=== PATIENT | male | born 1975 | race Caucasian/White ===

== ENCOUNTER → 2021-09-22 15:00 | Outpatient (BNVA) | payer OTHER, SELFPAY | PROVIDERS: PCP Internal Medicine; Referring Provider Internal Medicine; Visit Provider Nurse Practitioner Family | DX: Z12.11 Encounter for screening for malignant neoplasm of colon (principal); K21.9 Gastro-esophageal reflux disease without esophagitis; Z87.898 Personal history of other specified conditions | CPT/HCPCS: 99202 ==

== ENCOUNTER → 2021-10-27 13:51 | Outpatient (BNVA) | payer OTHER, SELFPAY | PROVIDERS: PCP Internal Medicine; Visit Provider Internal Medicine Cardiovascular Disease | DX: R06.02 Shortness of breath (principal) | CPT/HCPCS: 93005; 99202 ==

== ENCOUNTER → 2021-11-30 09:54 | Outpatient (REF) | payer OTHER, SELFPAY ==
--- NOTE | ~2021-11-30 | NM_ITS ---
Myocardial perfusion study Indication: Shortness of breath evaluate for myocardial ischemia Technique: The patient was brought in for a Lexiscan perfusion study on 11/30/2021. Patient performed low-level exercise and was injected 0.4 mg of Lexiscan intravenously. Within a minute of injection, 40 mCi of sestamibi was given intravenously. Images were obtained using the SPECT gamma camera interlaced with the gating device. Images were obtained in supine position. Resting perfusion study was performed on 12/02/2021. Patient was administered 40 mCi of sestamibi intravenously at rest. Images were then obtained in supine position. Images obtained with and without CT attenuation. Total DLP 162 mGy-cm. Images were processed with the software and compared side to side in short axis, horizontal long axis and vertical long axis views. Findings: The stress perfusion study showed non attenuated images show mildly reduced uptake in the basal and mid inferior wall of the LV myocardium. Remainder of the LV myocardium is normally perfused. Attenuation corrected images show normal uptake of radiotracer in all segments of LV myocardium. The gated study shows normal LV systolic function with calculated LVEF of 66%. LV cavity is normal in size. The gated study shows normal systolic wall thickening and contraction of segments. Resting study shows no change in perfusion pattern compared to stress perfusion study. Gating at rest reveals normal systolic wall motion with ejection fraction at 58%. The findings are consistent with normal myocardial perfusion. NM/NM kandice perf SPECT rest & str Impression: 1. Myocardial perfusion imaging study shows normal myocardial perfusion 2. Gated LVEF is 66% 3. Transient ischemic dilatation not present EKG nondiagnostic for ischemia
--- NOTE | 2021-11-30 09:59 | CA_ITS ---
Acquisition Time: 2021-11-30 10:10:24 Total Exercise Time: 00:06:10 Test Indications: SOB, PREOP Medications: SEE CHART Protocol: SHILA Max HR: 155 BPM 89% of Pred: 174 BPM Max BP: 164/068 mmHG Max Work Load: 7.2 METS Exercise stress test with exercise 6 min 10 sec of Shila protocol, with moderate shortness of breath, no chest discomfort, with ectopic atrial beats and isolated PVCs, with normotensive response to exercise, with baseline EKG showing T wave inversion lead III, then with exercise there is T wave inversions lead III, aVF, and slightly in V4-V6, suggestive of possible ischemia. In recovery his sob resolved quickly. Nuclear images pending. Test reviewed with Dr Ly Referred By: Leonardo Ly Overread By: EMMA DICKEY
== END ==
LOC: HO.CARD 09:54
PROVIDERS: PCP Internal Medicine; Visit Provider Internal Medicine Cardiovascular Disease
DX: I10 Essential (primary) hypertension (principal); R06.02 Shortness of breath
CPT/HCPCS: 78452; 93017; A9500; J0280; J2785

== ENCOUNTER 2021-12-01 14:55 | Outpatient (REF) | payer OTHER, SELFPAY | END 2021-12-01 14:56 | disposition home or self-care (01) | LOC: HO.LNP 14:55 | PROVIDERS: Visit Provider Surgery | DX: L02.91 Cutaneous abscess, unspecified (principal); L08.9 Local infection of the skin and subcutaneous tissue, unspecified; L72.3 Sebaceous cyst; E11.65 Type 2 diabetes mellitus with hyperglycemia; E66.01 Morbid (severe) obesity due to excess calories | CPT/HCPCS: 10060; 87071; 87205; 99202 ==

== ENCOUNTER 2021-12-01 16:36 | Outpatient (REF) | payer OTHER, SELFPAY ==
[2021-12-01 16:56] LABS: MANUAL DIFF FLAG NO
[2021-12-01 17:20] LABS: Appearance Urine CLEAR; Color Urine YELLOW; Glucose Urine UA NEG (NEG); Leukocyte Esterase Urine NEG (NEG); Nitrite Urine NEG (NEG); PH 5.5 (5.0-8.0); Specific Gravity - Urine >= 1.030 (1.005-1.025); Urine Blood NEG (NEG); Urine Ketones NEG (NEG); Urine Protein NEG (NEG-TRACE)
[2021-12-01 17:21] LABS: Basophils Absolute Auto 0.1 X10*3/uL (0.0-0.2); Eosinophils Absolute Auto 0.2 X10*3/uL (0.0-0.4); Eosinophils Percent Auto 2.3 % (0-4); Hematocrit 46.6 % (42.0-52.0); Hemoglobin 15.5 g/dl (14.0-18.0); Imm Gran Abs Auto 0.11 X10*3/uL (0.00-0.03); Imm Gran Pct Auto 1.3 % (0.0-0.4); Lymphocytes Absolute Auto 2.4 X10*3/uL (1.2-4.9); Lymphocytes Percent Auto 26.8 % (20-40); Mean Corpuscular HGB Conc 33.3 g/dl (31.0-36.0); Mean Corpuscular Hemoglobin 28.1 pg (27.0-33.0); Mean Corpuscular Volume 84.6 fL (80.0-98.0); Mean Platelet Volume 10.5 fL (9.4-12.4); Monocytes Absolute Auto 0.6 X10*3/uL (0.1-1.2); Monocytes Percent Auto 6.4 % (2-11); Neutrophils Absolute Auto 5.5 x10*3/uL (2.0-8.3); Neutrophils Percent Auto 62.2 % (45-73); Platelet Count 249 X10*3/uL (160-400); Red Blood Count 5.51 X10*6/uL (4.60-5.80); Red Cell Distribution Width 12.8 % (11.0-16.0); White Blood Count 8.8 X10*3/uL (4.8-10.8)
[2021-12-01 17:30] LABS: Bacteria Urine 1+ /LPF; Squamous Epithelial Cell Urine 1+ /LPF
[2021-12-01 18:02] LABS: Alanine Aminotransferase 41 U/L (0-40); Albumin Level 4.3 g/dL (3.5-5.0); Alkaline Phosphatase 73 U/L (39-117); Anion Gap 17 (12-20); Aspartate Amino Transferase 24 U/L (5-37); Bilirubin Total 1.2 mg/dL (0.0-1.0); Blood Urea Nitrogen 15 mg/dL (9-16); Calcium 10.1 mg/dL (8.4-10.2); Carbon Dioxide 24 mmol/L (22-29); Chloride 100 mmol/L (96-108); Cholesterol 206 mg/dL; Estimated Glomerular Filt Rate > 60; Glucose Random 142 mg/dL (60-115); HDL Cholesterol 50 mg/dL; LDL Cholesterol Calculated 118 mg/dl; Potassium 4.8 mmol/L (3.3-5.1); Sodium 136 mmol/L (135-145); Total Protein 7.3 g/dL (6.5-8.0); Triglycerides 191 mg/dL
[2021-12-01 18:25] LABS: Free T4 (Free Thyroxine) 1.06 ng/dL (0.71-1.85); Thyroid Stimulating Hormone 5.09 uIU/mL (0.32-4.0)
[2021-12-01 18:35] LABS: Folate 19.4 ng/mL (> or = 4.0); Vitamin B12 861 pg/mL (200-900)
[2021-12-02 05:14] LABS: Estimated Average Glucose 203 mg/dL; Hemoglobin A1c % 8.7 %
[2021-12-08 13:31] LABS: Testosterone, Free 63.7 pg/mL (35.0-155.0); Testosterone, Total 230 ng/dL (250-1100)
== END 2021-12-01 16:37 | disposition home or self-care (01) ==
LOC: HO.LAB 16:36
PROVIDERS: PCP Internal Medicine; Visit Provider Internal Medicine
DX: Z01.818 Encounter for other preprocedural examination (principal); K21.9 Gastro-esophageal reflux disease without esophagitis; E66.01 Morbid (severe) obesity due to excess calories; E11.65 Type 2 diabetes mellitus with hyperglycemia; E29.1 Testicular hypofunction
CPT/HCPCS: 36415; 80053; 80061; 81001; 82607; 82746; 83036; 84402; 84403; 84439; 84443; 85025; 99212

== ENCOUNTER → 2021-12-22 14:54 | Outpatient (REF) | payer OTHER, SELFPAY ==
--- NOTE | 2021-12-22 14:57 | CA_ITS ---
Transthoracic Echocardiogram Patient (Last, First, Middle): Jaspreet Chacko, Gender: Male Date of : 1975 Age: 46 Procedure Date: 12/22/2021 Procedure Type: Transthoracic Echocardiogram Location: OP Height: 180.34 cm Weight: 145.15 kg BSA: 2.58 m2 Heart Rate: bpm BP: 145 / 84 mmHg Paralegal Supervisor: LINDA Referring MD: Leonardo Ly MD Symptoms: R06.02 - Shortness of breath, I10 HTN Study Quality: Fair, Good with definity ECG Rhythm: Sinus Conclusions: - The left ventricular systolic function is normal. The calculated ejection fraction is 61% by biplane method. - No obvious valvular pathology seen on this study. Findings Left Ventricle Normal left ventricular cavity size. There is mildly increased left ventricular wall thickness. The left ventricular systolic function is normal. The calculated ejection fraction is 61% by biplane method. There is no evidence of regional wall motion abnormalities. Diastolic function is normal for age. Right Ventricle Normal right ventricular cavity size and systolic function. Atria Both atria are normal in size. Aortic Valve The aortic valve was not well visualized. There is no aortic valve stenosis. There is no aortic valve regurgitation. Mitral Valve The mitral valve appears normal. There is no mitral valve regurgitation. There is no mitral valve stenosis. Pulmonic Valve The pulmonic valve is likely normal. Tricuspid Valve Normal tricuspid valve structure. There is trace tricuspid valve regurgitation. There is no evidence of pulmonary hypertension. Great Vessels The asc aorta is normal in size. Venous The inferior vena cava is normal in size and collapses greater than 50% with inspiration. Pericardium/Pleural There is no evidence of pericardial effusion. Prior Study Comparison No prior study available for comparison. Recommendations, Care & Conclusions No obvious valvular pathology seen on this study. Measurements 2D Linear Measurements IVSd: 1.23 0.6-0.9/0.6-1.0 cm LVIDd: 4.24 3.9-5.3/4.2-5.9 cm LVIDd Index: 1.64 2.4-3.2/2.2-3.1 cm/m2 LVIDs: 2.74 2.0-3.6 cm LVPWd: 1.28 0.7-1.1 cm Ao Root: 2.90 2.1-3.5 cm LA Diam: 3.40 2.7-3.8/3.0-4.0 cm LAIDs Index: 1.32 1.5-2.3 cm/m2 LV Mass: 240.57 67-162/88-224 g LV Mass Index: 93.25 43-95/49-115 g/m2 LVOT Diam: 2.20 3.0+(-)1.3 cm 2D Systolic Function EF 4C: 66.50 >55% EF 2C: 53.80 >55% EF BiP: 60.50 >55% Mitral Valve MV Pk E: 0.63 MV PK A: 0.71 MV Decel Time: 116.00 E/A: 0.90 E'Lateral: 14.00 E'Medial: 7.83 E/E' Med: 8.00 E/E' Lat: 4.50 PHT: 34.00 MVA PHT: 6.47 Decel [place]: 5.40 Aortic Valve AoV Pk Ceferino: 1.54 AoV Mn Ceferino: 1.09 AoV VTI: 0.32 AoV Pk Grad: 9.00 Aov Mn Grad: 5.00 SANJAY Cont.VTI: 2.44 LVOT LVOT Pk Ceferino: 0.99 LVOT Mn Ceferino: 0.67 LVOT VTI: 0.20 LVOT Pk Grad: 4.00 LVOT Mn Grad: 2.00 LVOT Diam: 2.20 LVOT Area: 3.80 Diastolic Function MV Pk E: 0.63 MV Pk A: 0.71 E/A: 0.90 E'Medial: 7.83 E/E' Med: 8.00 E' Laterial: 14.00 E/E' Lat: 4.50 Right Ventricle TAPSE (mm): 24.00 TVS' Ceferino: 13.00 Tricuspid Valve TR Pk Ecferino: 1.83 TR Pk Grad: 13.00 RA Press: 3.00 RVSP: 16.00 Great Vessels Aorta Ao Root-2D: 2.90 2.0-3.7 cm Pulmonary Valve PV Pk Ceferino: 1.40 Peak PV Grad: 8.00 Updated in Other Vendor System with Status of Final Jose Cruz Harris MD electronically signed on 12/23/2021 11:35:04 AM with status of Final
== END ==
LOC: HO.CARD 14:54
PROVIDERS: Visit Provider Internal Medicine Cardiovascular Disease
DX: R06.02 Shortness of breath (principal); I10 Essential (primary) hypertension
CPT/HCPCS: 93306; Q9957

== ENCOUNTER 2022-01-11 16:00 | Outpatient (REF) | payer OTHER, SELFPAY ==
--- NOTE | 2022-01-11 17:32 | PFT_ITS ---
Forced vital capacity 69%, FEV1 66%, FEV1/FVC 75, [id number] is 55%, and MVV 54%. Post bronchodilator therapy, there is a significant improvement in [id number]. Total lung capacity 90%. Residual volume 140%. Diffusion capacity 104% CONCLUSION: Moderate degree of obstructive airway disorder. There is some improvement after bronchodilator therapy, suggesting mild bronchial asthma. Clinical correlation is recommended. MD SCOTT Villa/CHANDU / [id number]
== END 2022-01-11 16:01 | disposition home or self-care (01) ==
LOC: HO.RESP 16:00
PROVIDERS: PCP Internal Medicine; Visit Provider Internal Medicine
DX: J45.909 Unspecified asthma, uncomplicated (principal)
CPT/HCPCS: 94060; 94727; 94729

== ENCOUNTER → 2022-01-12 14:26 | Outpatient (BNVA) | payer OTHER, SELFPAY | PROVIDERS: PCP Internal Medicine; Referring Provider Internal Medicine; Visit Provider Nurse Practitioner Family | DX: R06.02 Shortness of breath (principal); R07.89 Other chest pain; E66.01 Morbid (severe) obesity due to excess calories; Z68.42 Body mass index [BMI] 45.0-49.9, adult | CPT/HCPCS: 99212 ==

== ENCOUNTER 2022-02-02 16:27 | Outpatient (REF) | payer OTHER, SELFPAY ==
--- NOTE | ~2022-02-02 | XR_ITS ---
EXAMINATION: CHEST AND RIGHT RIBS. CLINICAL INFORMATION: Fall. COMPARISON: None TECHNIQUE: Chest 2 views. Right RIBS 4 views. FINDINGS: CHEST: The lungs are well-expanded and clear of acute process. The heart size and pulmonary vascularity is normal. Visualized thoracic cage appears unremarkable. Mild spondylosis seen throughout thoracic spine. RIGHT RIBS: Multiple views of right ribs reveal no visible rib fracture or bony abnormality. The soft tissues are normal. XR/XR chest 2V IMPRESSION: Unremarkable chest exam. No visible right rib fracture seen. No lytic process.
--- NOTE | ~2022-02-02 | XR_ITS ---
EXAMINATION: CHEST AND RIGHT RIBS. CLINICAL INFORMATION: Fall. COMPARISON: None TECHNIQUE: Chest 2 views. Right RIBS 4 views. FINDINGS: CHEST: The lungs are well-expanded and clear of acute process. The heart size and pulmonary vascularity is normal. Visualized thoracic cage appears unremarkable. Mild spondylosis seen throughout thoracic spine. RIGHT RIBS: Multiple views of right ribs reveal no visible rib fracture or bony abnormality. The soft tissues are normal. XR/XR ribs RT 2V IMPRESSION: Unremarkable chest exam. No visible right rib fracture seen. No lytic process.
== END 2022-02-02 16:28 | disposition home or self-care (01) ==
LOC: HO.XRAY 16:27
PROVIDERS: PCP Internal Medicine; Visit Provider Internal Medicine
DX: R07.81 Pleurodynia (principal); W19.XXXA Unspecified fall, initial encounter
CPT/HCPCS: 71046; 71100

== ENCOUNTER 2022-03-23 15:27 | Outpatient (REF) | payer OTHER, SELFPAY ==
--- NOTE | ~2022-03-23 | US_ITS ---
EXAMINATION: US ABDOMEN COMPLETE CLINICAL INFORMATION: Abnormal liver function tests. COMPARISON: None TECHNIQUE: Real-time imaging of the abdominal viscera. FINDINGS: PANCREAS: Not well visualized due to bowel gas ABDOMINAL AORTA: Not well visualized due to bowel gas INFERIOR VENA CAVA: Not well visualized due to bowel gas LIVER: Liver echotexture is increased. The liver is enlarged, right lobe measuring 21 cm. Liver contour is normal.. No focal hepatic lesion. There is no intrahepatic biliary duct dilatation seen. GALLBLADDER: Small gallstones in the gallbladder. The gallbladder is normal in size. The gallbladder wall is normal.. COMMON BILE DUCT: Normal in caliber measuring 0.4 cm in diameter. RIGHT KIDNEY: 4 cm cyst in the lower pole with single septation, Bosniak type II No hydronephrosis. No renal calculi or focal parenchymal lesions. The kidney measures 13 cm in maximum dimension. LEFT KIDNEY: Normal. No hydronephrosis. No renal calculi or focal parenchymal lesions. The kidney measures 12.8 cm in maximum dimension. SPLEEN: Slightly enlarged. The spleen measures 14 cm in maximum dimension. FREE FLUID: None. US/US abdomen complete IMPRESSION: Enlarged echogenic liver suggestive of fatty infiltration. Slightly enlarged spleen. Gallstones. Right renal cyst. Limited visualization of the pancreas, aorta and IVC.
== END 2022-03-23 15:28 | disposition home or self-care (01) ==
LOC: HO.US 15:27
PROVIDERS: Visit Provider Internal Medicine
DX: R79.89 Other specified abnormal findings of blood chemistry (principal)
CPT/HCPCS: 76700

== ENCOUNTER 2022-04-13 07:32 | Day surgery (SDC) | payer OTHER, SELFPAY ==
[2022-04-07 14:07] VITALS: BMI 46.4
--- NOTE | 2022-04-12 10:17 | HO.ANESPROP2 ---
Documented by User: Petra Sheridan NP 04/12/22 10:18 HPI - Anesthesia Eval Consult details Narrative: 46yo M for Upper Endoscopy and Colonoscopy COUNT INCLUDES THE [facility] Active Problems Active Problems: All Active Problems (Updated 04/07/22 @ 13:40 by Breanna Tidwell, TUNG) Type 2 diabetes mellitus with hyperglycemia (Acute) COVID-19 virus infection (Acute) Colon cancer screening (Acute) Cholelithiasis (Acute) Left renal stone (Acute) Annual physical exam (Acute) Periumbilical hernia (Acute) Morbid (severe) obesity due to excess calories (Acute) TSH elevation (Acute) LFTs abnormal (Acute) Fall (Acute) Chest pain (Acute) Back pain (Acute) Generalized anxiety disorder (Acute) Fatty liver (Acute) Cholelithiasis (Acute) Hypogonadism in male (Acute) Obesity (Acute) Hypertension (Acute) GERD (gastroesophageal reflux disease) (Acute) Asthma (Acute) Past Medical History Medical History (Updated 04/07/22 @ 13:40 by Breanna Tidwell RN) Abscess Asthma Chest wall pain GERD (gastroesophageal reflux disease) Hypertension Hypogonadism in male Obesity Poorly controlled type 2 diabetes mellitus Shortness of breath on exertion Umbilical hernia Family History Family History Father Heart attack Mother No problems noted. Sister No problems noted. Daughter No problems noted. Maternal Grandmother Ovarian cancer Paternal Grandfather Heart attack Paternal Uncle Alcohol abuse Surgical History Surgical History History of appendectomy Hx of LASIK Laryngeal polyp Social History Social History Housing: House Alcohol intake: former Year quit: 2013 Patient Tobacco Use Status: Former Tobacco user Quit Date: 2017 Tobacco use type: Cigarette Years Smoked: 25+/- 2016 e-Cigarette/Vaping Use: Never Used Second Hand Smoke Exposure: No Use of substances other than those prescribed or required for medical reasons: Yes Are you DNR?: No Advance Directives: No Advance Directives Information Provided: Yes service: No Current occupational status: employed Cognitive needs: No Hearing needs: No Vision needs: Yes Meds Allergies Allergy/AdvReac Type Severity Reaction Status Date / Time Iodinated Contrast Media Allergy Mild Abdominal Verified 03/09/22 13:29 Pain Penicillins Allergy Mild Hives Verified 03/09/22 13:29 Home Medications Medication Instructions Recorded Confirmed Last Taken Type azelastine 137 mcg (0.1 %) nasal 2 spray intranasal BID 07/15/21 04/07/22 Unknown History spray aerosol biotin 5 mg capsule 5 mg PO DAILY 07/15/21 04/07/22 Unknown History buspirone 10 mg tablet 40 mg PO DAILY 07/15/21 04/07/22 Unknown History milk thistle 150 mg capsule 150 mg PO BID 07/15/21 04/07/22 Unknown History pioglitazone 30 mg tablet 30 mg PO DAILY 07/15/21 04/07/22 Unknown History diazepam 5 mg tablet 5 mg PO DAILY PRN Anxiety 03/09/22 04/07/22 Unknown History Exam Exam Date and Time: April 12, 2022 1017 Height,Weight and Vital Signs: Height 5 ft 11 in Weight 151.046 kg Pertinent Lab Results Pertinent Lab Results: Laboratory Tests 12/01/21 12/01/21 16:54 16:54 WBC 8.8 Hgb 15.5 Hct 46.6 Plt Count 249 Sodium 136 Potassium 4.8 Chloride 100 Carbon Dioxide 24 BUN 15 Creatinine 0.78 Assessment and Plan Assessment Anesthesia Assessment: Chart Reviewed Documented by User: Josef Funk MD 04/13/22 08:19 COUNT INCLUDES THE [facility] Past Medical History Medical History (Updated 04/07/22 @ 13:40 by Breanna Tidwell RN) Abscess Asthma Chest wall pain GERD (gastroesophageal reflux disease) Hypertension Hypogonadism in male Obesity Poorly controlled type 2 diabetes mellitus Shortness of breath on exertion Umbilical hernia Family History Family History Father Heart attack Mother No problems noted. Sister No problems noted. Daughter No problems noted. Maternal Grandmother Ovarian cancer Paternal Grandfather Heart attack Paternal Uncle Alcohol abuse Family history of problems with anesthesia: No Surgical History Surgical History History of appendectomy Hx of LASIK Laryngeal polyp History of Problems with Anesthesia: No Social History Social History Housing: House Alcohol intake: former Year quit: 2013 Patient Tobacco Use Status: Former Tobacco user Quit Date: 2017 Tobacco use type: Cigarette Years Smoked: 25+/- 2016 e-Cigarette/Vaping Use: Never Used Second Hand Smoke Exposure: No Use of substances other than those prescribed or required for medical reasons: Yes Are you DNR?: No Advance Directives: No Advance Directives Information Provided: Yes service: No Current occupational status: employed Cognitive needs: No Hearing needs: No Vision needs: Yes Meds Allergies Allergy/AdvReac Type Severity Reaction Status Date / Time Iodinated Contrast Media Allergy Mild Abdominal Verified 03/09/22 13:29 Pain Penicillins Allergy Mild Hives Verified 03/09/22 13:29 Home Medications Medication Instructions Recorded Confirmed Last Taken Type azelastine 137 mcg (0.1 %) nasal 2 spray intranasal BID 07/15/21 04/07/22 Unknown History spray aerosol biotin 5 mg capsule 5 mg PO DAILY 07/15/21 04/07/22 Unknown History buspirone 10 mg tablet 40 mg PO DAILY 07/15/21 04/07/22 Unknown History milk thistle 150 mg capsule 150 mg PO BID 07/15/21 04/07/22 Unknown History pioglitazone 30 mg tablet 30 mg PO DAILY 07/15/21 04/07/22 Unknown History diazepam 5 mg tablet 5 mg PO DAILY PRN Anxiety 03/09/22 04/07/22 Unknown History Exam Airway Mallampati Class: IV TM Dist: >3cm Neck ROM: Full Heart: rrr Lungs: clear Assessment and Plan Final Anesthetic Review Family History of Problems with Anesthesia: No History of Problems with Anesthesia: No NPO: Yes ASA Class: III Final Preanesthetic Review: No Changes in Pt Med Stat, Meds/Allgs Chart Reviewed, Consent Obtained/Reviewed and Anes Risks/Benef Reviewed Patient Risk: Intermediate Procedure Risk: Low Anesthetic Plan Anesthetic Plan: MAC: Disposition: Standard PACU
--- NOTE | 2022-04-13 07:26 | MHC.SHP ---
Pre-Procedural Eval Section A Date of Service: 04/13/22 Section B Chief Complaint: reflux disease,screening Relevant Family History (Specify if Yes): No Relevant Social History: Other (specify) Present Medications: see Short Stay Collaborative assessment Medical History: Significant History (Abscess Asthma Chest wall pain GERD (gastroesophageal reflux disease) Hypertension Hypogonadism in male Obesity Poorly controlled type 2 diabetes mellitus Shortness of breath on exertion Umbilical hernia) History of Previous Operations: Relevant previous surgery/procedure and date(s) (History of appendectomy Hx of LASIK Laryngeal polyp) Allergies: Allergies Allergy/AdvReac Type Severity Reaction Status Date / Time Iodinated Contrast Media Allergy Mild Abdominal Verified 03/09/22 13:29 Pain Penicillins Allergy Mild Hives Verified 03/09/22 13:29 Review of Systems Sugical H&P ROS: Negative: Constitution, Cardiovascular, Respiratory, Neurological, Psychiatric, Hem-Onc, Allergic/Immunologic, Gastrointestinal, Genitourinary, Musculoskeletal, Integumentary, Endocrine and Eyes/Ears/Nose/Throat Exam Surgical H&P Exam: Normal: HEENT, Normal: Heart, Normal: Lungs, Normal: Extremities, Normal: Abdomen, Normal: Skin and Normal: Neurological Plan Diagnosis/Plan: Unchanged I have reviewed the history and physical and performed a pertinent physical examination on my patient. No changes have occurred unless specified. Time Spent With Patient Time: Total time managing care of this patient today ____ minutes.
[2022-04-13 07:48] VITALS: BP 146/87; PULSE 80; RESP 18; TEMP 36.9; O2SAT 95; BMI 46.0
[2022-04-13] MEDS: Lactated Ringers 1,000 ML 100 ML IVCONT (08:15)
[2022-04-13 08:23] LABS: Glucose, Whole Blood 168 mg/dL (60-115)
--- NOTE | 2022-04-13 09:07 | P.OP_ITS ---
Operative Note Operative Note Date of Service: 04/13/22 Narrative: Operative Information Procedure Description: EGD, Colonoscopy Indication: reflux, screening colon Anesthesia: MAC FLEXIBLE TRANSORAL UPPER GASTROINTESTINAL ENDOSCOPY AND COLONOSCOPY PROCEDURE NOTE UPPER ENDOSCOPY Consent: Indications for the procedure and potential complications of bleeding, perforation, reaction to medications and missed diagnosis were discussed with the patient and informed consent was obtained. Instrument: Olympus GIF H 190 J mid size upper endoscope Monitoring: Vital signs and clinical assessment, continuous EKG monitoring, Pulse oximetry, Carbon Dioxide monitoring and blood pressure monitoring were done throughout the procedure. Procedure: The patient was placed in the left lateral decubitis position and pre-procedure medications were administered and a bite block was placed. The endoscope was inserted into the mouth and advanced under direct vision to the third part of duodenum. A careful inspection was made as the upper endoscope was withdrawn including a retroflexed examination of the proximal stomach; Findings and interventions are described below. Findings: Larynx:normal Esophagus: GE junction at 43 cm, diaphragm hiatus at 45 cm, consistent with 2 cm sliding hiatal hernia, Esophagitis noted with mild erosion, bx taken from GEJ and distal esophagus in separate jars. The LES was very lax. Stomach: erythematous mucosa with scarring in distal stomach. Biopsies were obtained. Grade 3 flap valve on retroflexed examination of the cardia. Duodenum: Normal bulb and descending duodenum, Intervention: Biopsies as noted above COLONOSCOPY Instrument: Olympus variable stiffness ADULT scope 190L Colonoscopy Monitoring: Vital signs and clinical assessment, continuous EKG monitoring, Pulse oximetry, Carbon Dioxide monitoring and blood pressure monitoring were done throughout the procedure. Colon withdrawal time was 12 minutes. Procedure: The patient was placed in the left lateral decubitis position and pre-procedure medications were administered. After a digital rectal examination of the ano-rectum, the video colonoscope was inserted into the rectum and advanced through the colon to the cecum/TI. The colonoscope was slowly withdrawn in a retrograde panoramic fashion and the colon mucosa was carefully examined including a retroflexed view of the rectum. Findings and interventions are described below. Procedure Difficulty: Findings: Terminal Ileum-normal Cecum:normal Ascending Colon: few small diverticula seen Transverse Colon - x1 sessile polyp 10 mm removed with cold snare Descending Colon: x1 sessile polyp 5-7 mm removed with cold forceps Sigmoid Colon: x2 sessile polyps 10 mm removed with cold snare, one was not retrieved. Rectum: Retroflexion with small internal hemorrhoids, grade I, 5-8 mm sessile polyp removed with cold forceps Anorectum - normal Colon preparation: [place] Bowel Preparation Scale Right colon; 2 Transverse colon: 2 Left colon; 2 (0 = Unprepared colon segment with mucosa not seen due to solid stool that cannot be cleared. 1 = Portion of mucosa of the colon segment seen, but other areas of the colon segment not well seen due to staining, residual stool and/or opaque liquid. 2 = Minor amount of residual staining, small fragments of stool and/or opaque liquid, but mucosa of colon segment seen well. 3 = Entire mucosa of colon segment seen well with no residual staining, small fragments of stool or opaque liquid) Impression and Post Procedure Diagnosis: Endoscopy Findings: hiatal hernia gastritis erosive esophagitis lax LES Colonoscopy Findings: polyps internal hemorrhoids diverticular disease Plan: Await Pathology results Repeat Colonoscopy in 3-4 years due to polyps or earlier if clinically indicated High fiber diet leaflet avoid straining at stool, epsom salts and sitz bath, anusol supps or cream reflux precautions, PPI compliance if taking, if not taking then would probably benefit lifestyle modifications and weight loss Above findings were reviewed with the patient and relevant handouts were provided if indicated.
[2022-04-13 09:15] VITALS: BP 103/79; PULSE 91; RESP 18; TEMP 36.9; O2SAT 95
[2022-04-13 09:36] VITALS: BP 145/95; PULSE 81; RESP 18; TEMP 36.9; O2SAT 96
== END 2022-04-13 10:17 | disposition home or self-care (01) ==
PROVIDERS: PCP Internal Medicine; Visit Provider Internal Medicine Gastroenterology
PROC: (CPT 45385; principal; 2022-04-13 08:30)
DX: Z12.11 Encounter for screening for malignant neoplasm of colon (principal); D12.3 Benign neoplasm of transverse colon; D12.4 Benign neoplasm of descending colon; D12.7 Benign neoplasm of rectosigmoid junction; K57.30 Diverticulosis of large intestine without perforation or abscess without bleeding; K64.0 First degree hemorrhoids; K62.89 Other specified diseases of anus and rectum; K58.9 Irritable bowel syndrome, unspecified; K29.50 Unspecified chronic gastritis without bleeding; K21.9 Gastro-esophageal reflux disease without esophagitis; K20.80 Other esophagitis without bleeding; K44.9 Diaphragmatic hernia without obstruction or gangrene; I10 Essential (primary) hypertension; J45.909 Unspecified asthma, uncomplicated; E66.01 Morbid (severe) obesity due to excess calories; Z68.41 Body mass index [BMI] 40.0-44.9, adult; E29.1 Testicular hypofunction; E11.65 Type 2 diabetes mellitus with hyperglycemia; Z79.84 Long term (current) use of oral hypoglycemic drugs; Z79.51 Long term (current) use of inhaled steroids; Z79.899 Other long term (current) drug therapy; Z88.0 Allergy status to penicillin; Z91.041 Radiographic dye allergy status; Z87.891 Personal history of nicotine dependence
CPT/HCPCS: 45385; 45380; 43239; 82947; 88305; 88342

== ENCOUNTER → 2022-04-27 15:58 | Outpatient (BNVA) | payer OTHER, SELFPAY | PROVIDERS: PCP Internal Medicine; Visit Provider Nurse Practitioner Family | DX: K80.20 Calculus of gallbladder without cholecystitis without obstruction (principal); K76.0 Fatty (change of) liver, not elsewhere classified; K21.00 Gastro-esophageal reflux disease with esophagitis, without bleeding; K59.04 Chronic idiopathic constipation; K29.50 Unspecified chronic gastritis without bleeding; K20.90 Esophagitis, unspecified without bleeding; R79.89 Other specified abnormal findings of blood chemistry | CPT/HCPCS: 99212 ==

== ENCOUNTER → 2022-07-20 15:22 | Outpatient (BNVA) | payer OTHER, SELFPAY | PROVIDERS: PCP Internal Medicine; Visit Provider Urology | DX: K21.00 Gastro-esophageal reflux disease with esophagitis, without bleeding (principal); K76.0 Fatty (change of) liver, not elsewhere classified; K59.01 Slow transit constipation; K58.1 Irritable bowel syndrome with constipation; E29.1 Testicular hypofunction; E11.69 Type 2 diabetes mellitus with other specified complication; N52.1 Erectile dysfunction due to diseases classified elsewhere | CPT/HCPCS: 51798; 99202; 99212 ==

== ENCOUNTER 2022-10-05 14:26 | Outpatient (REF) | payer OTHER, SELFPAY ==
[2022-10-12 17:44] LABS: Testosterone, Free 38.4 pg/mL (35.0-155.0); Testosterone, Total 127 ng/dL (250-1100)
== END 2022-10-05 14:27 | disposition home or self-care (01) ==
LOC: HO.LAB 14:26
PROVIDERS: PCP Internal Medicine; Visit Provider Urology
DX: E11.65 Type 2 diabetes mellitus with hyperglycemia (principal); N52.1 Erectile dysfunction due to diseases classified elsewhere
CPT/HCPCS: 36415; 84402; 84403

== ENCOUNTER → 2022-10-19 15:52 | Outpatient (BNVA) | payer OTHER, SELFPAY | PROVIDERS: PCP Internal Medicine; Visit Provider Urology ==

== ENCOUNTER → 2022-10-26 15:44 | Outpatient (BNVA) | payer OTHER, SELFPAY | PROVIDERS: PCP Internal Medicine; Visit Provider Urology | DX: E29.1 Testicular hypofunction (principal) | CPT/HCPCS: 96372 ==

== ENCOUNTER 2023-01-18 15:18 | Outpatient (AMB) | payer OTHER, SELFPAY ==
--- NOTE | 2023-01-18 15:25 | A.OFFVIS_ITS ---
Intake Intake Visit Reasons: 3M PSA/CBC/Testosterone(set) Intake Note: Patient is present for Follow Up Labs Urology Med: Tadalafil, Testosterone, Antibiotic Allergy: Penicillins Blood Thinner: None [facility] Allergies Iodinated Contrast Media Allergy (Mild, Verified 02/08/23 15:42) Abdominal Pain Penicillins Allergy (Mild, Verified 02/08/23 15:42) Hives Medication List - Last Reconciled 01/18/23 by Sandip Becker MD albuterol sulfate 90 mcg/actuation (Ventolin HFA) 2 puffs PO Q6H PRN azelastine 2 sprays intranasal BID buspirone 40 mg PO DAILY diazepam 5 mg PO DAILY PRN docusate sodium 100 mg PO BEDTIME empagliflozin (Jardiance) 10 mg PO DAILY glipizide 10 mg PO BID 90 days lisinopril 10 mg PO DAILY metformin 500 mg PO TIDWMEAL 90 days milk thistle 150 mg PO BID needle (disp) 18 G (BD Regular Bevel [place]) To draw up medication needle (disp) 22 G (BD Regular Bevel [place]) To inject Testosterone pantoprazole 40 mg PO DAILY polyethylene glycol 3350 (Miralax) 17 grams PO DAILY sennosides (Natural Senna Laxative) 17.2 mg (2 x 8.6 mg) PO BEDTIME syringe (disposable) (BD Luer-Savi Syringe) Testosterone injection weekly tadalafil 10 mg PO DAILY 90 days testosterone 1 tube transdermal QAM testosterone cypionate (Depo-Testosterone) 80 mg (0.4 mL) subcut QWEEK 4 weeks HPI HPI Comments History of Present Illness Details Jaspreet is a pleasant male. He is a patient of Dr. Lunsford. He is seen for the following urologic conditions - erectile dysfunction with type 2 diabe parker - lower urinary tract symptoms - hypogonadism High-dose daily tadalafil with on demand appears to be effective 10 mg daily, up to 40 on demand Retry injectable therapy Lab work reasonable Injection Day: Lab Day: Mon Testosterone 80mg weekly Hypogonadism Intermittent treatment for many years Insurance issues related to topical therapy Prescription for injectable provided Erectile dysfunction with type 2 diabetes Progressive Able to obtain but cannot maintain erection Comorbid diagnoses include diabetes Therapy - daily tadalaifl Investigations - 12/20 T 230 F 65, 10/21 T 127 Free 38, 01/21 T 242 H 52.8 Lower urinary tract symptoms Mild nocturia Mild urgency frequency PFSH Medical History Esophagitis Gastritis Asthma Back pain Chest pain Fall Chest wall pain Shortness of breath on exertion LFTs abnormal TSH elevation Poorly controlled type 2 diabetes mellitus Abscess Cholelithiasis Colon cancer screening Umbilical hernia Hypogonadism in male Obesity Hypertension GERD (gastroesophageal reflux disease) Surgical History History of esophagogastroduodenoscopy (EGD) Hx of colonoscopy Laryngeal polyp Hx of LASIK History of appendectomy Family History Father Heart attack Mother No problems noted. Sister No problems noted. Daughter No problems noted. Maternal Grandmother Ovarian cancer Paternal Grandfather Heart attack Paternal Uncle Alcohol abuse Social History Housing: House Alcohol intake: former Year quit: 2013 Patient Tobacco Use Status: Former Tobacco user Quit Date: 2017 Tobacco use type: Cigarette Years Smoked: +/- 2016 e-Cigarette/Vaping Use: Never Used Second Hand Smoke Exposure: No service: No Current occupational status: employed Cognitive needs: No Hearing needs: No Vision needs: Yes Review of Systems Const Denies chills and Denies fever(s) Card Reports no additional complaints and Denies syncope Resp Denies cough GI Denies abdominal pain and Denies heartburn Reports as per HPI and Denies change in libido Neuro Denies syncope Psych Denies change in libido Endo Denies change in libido Physical Exam Const General: cooperative, healthy appearing, comfortable and no acute distress Orientation/consciousness: patient oriented x3 HEENT Face and sinus: Yes normal facial exam Mouth: moist mucous membranes Neck Neck: Yes normal visual inspection, Yes full ROM and Yes trachea midline Chest Chest palpation & inspection: normal inspection of the chest Resp Effort & Inspection: normal respiratory effort, able to speak in complete sentences and no respiratory distress GI Inspection: Yes normal to inspection Back/Spine/Pelvis Cervical Spine: normal cervical lordosis Thoracic/Lumbar Spine: thoracic and lumbar spine normal to inspection Skin General skin exam: no rashes or lesions noted Neuro General: patient oriented x3, gait normal, tone normal and moves all extremities Extrem General: Yes normal to inspection and Yes capillary refill normal Assessment & Plan Assessment & Plan (1) Erectile dysfunction associated with type 2 diabetes mellitus: Code(s): E11.69 - Type 2 diabetes mellitus with other specified complication; N52.1 - Erectile dysfunction due to diseases classified elsewhere (2) Hypogonadism in male: Code(s): E29.1 - Testicular hypofunction Plan Continue code testosterone dosing Six month follow-up lab work repeat Orders: Orders Prostate Specific Antigen 6 Months E11.69 - Type 2 diabetes mellitus with other specified complication, N52.1 - Erectile dysfunction due to diseases classified elsewhere Testosterone, Total 6 Months E11.69 - Type 2 diabetes mellitus with other specified complication, N52.1 - Erectile dysfunction due to diseases classified elsewhere Complete Blood Count no Diff 6 Months E11.69 - Type 2 diabetes mellitus with other specified complication, N52.1 - Erectile dysfunction due to diseases classified elsewhere Medications: Changed From tadalafil 10 mg PO DAILY 90 days 90 tabs 0RF sexual activity E11.69 - Type 2 diabetes mellitus with other specified complication, N52.1 - Erectile dysfunction due to diseases classified elsewhere To tadalafil 5 mg PO DAILY 90 tabs 1RF sexual activity 90 days E11.69 - Type 2 diabetes mellitus with other specified complication, N52.1 - Erectile dysfunction due to diseases classified elsewhere Refilled testosterone cypionate (Depo-Testosterone) 80 mg (0.4 mL) subcut QWEEK 2 mL 5RF 4 weeks E29.1 - Testicular hypofunction, [id number] Patient Instructions: Imaging studies, laboratory and physical exam results were discussed and reviewed in detail. No major barriers to patient understanding were identified. An opportunity to ask questions regarding the treatment plan was provided. All questions were answered. The patient expressed understanding and agreement with the above treatment plan. The patient is aware they should contact our office by phone for worsening of their current condition or the appearance of new urologic symptoms. Compliance is encouraged with any medications and followup testing that is ordered. It is a privilege to participate in the urologic care of your patient. If you have any questions or concerns regarding treatment for the above conditions, or other urologic issues, please do not hesitate to contact me. The office telephone contact is [phone]. This note is constructed using voice recognition software. While every effort has been made to ensure accuracy pet training instructor errors may have been included. Yours sincerely, Dr Sandip Becker MD, [facility] - Urology Providers of Expert, Compassionate Care for the Genitourinary System Coding Level of Care Code Est Pt Level 3 (89520) Diagnoses Erectile dysfunction associated with type 2 diabetes mellitus E11.69; N52.1 Hypogonadism in male E29.1
== END 2023-01-18 15:59 | disposition home or self-care (01) ==
PROVIDERS: PCP Internal Medicine; Visit Provider Urology
DX: E11.69 Type 2 diabetes mellitus with other specified complication (principal); N52.1 Erectile dysfunction due to diseases classified elsewhere; E29.1 Testicular hypofunction
CPT/HCPCS: 99213

== ENCOUNTER → 2023-01-18 15:18 | Outpatient (BNVA) | payer OTHER, SELFPAY | PROVIDERS: PCP Internal Medicine; Visit Provider Urology | DX: E11.69 Type 2 diabetes mellitus with other specified complication (principal); N52.1 Erectile dysfunction due to diseases classified elsewhere; E29.1 Testicular hypofunction | CPT/HCPCS: 99212 ==

== ENCOUNTER 2023-02-08 15:33 | Outpatient (AMB) | payer OTHER, SELFPAY ==
--- NOTE | 2023-02-08 15:38 | A.OFFVIS_ITS ---
Intake Vital Signs 02/08/23 15:41 Height 5 ft 11 in Weight 335 lb 1.642 oz BMI 46.7 BP 135/88 Blood Pressure Location Lt brachial Position Sitting Pulse 93 Intake Visit Reasons: 6 month follow up Intake Note: Jaspreet presents in the office as a 6 month follow up. CC: he states that everything is the same from the last visit. Allergies Iodinated Contrast Media Allergy (Mild, Verified 02/08/23 15:42) Abdominal Pain Penicillins Allergy (Mild, Verified 02/08/23 15:42) Hives HPI 6 month follow up HPI Details LAST VISIT GERD (gastroesophageal reflux disease) Continue pantoprazole. Discussed with patient avoiding dietary triggers and late night snacking. Staying upright for minimum 3 hours after meals discussed with patient. Fatty liver Discussed with patient the importance of changing his diet. Losing weight. Constipation Patient continues to be constipated. He is taking MiraLax in the morning and Colace at bedtime. I will add Senokot. Patient was also encouraged to increase fluid intake and activity to promote better bowel motility. IBS (irritable bowel syndrome) Occasional abdominal bloating. Patient denies abdominal pain or discomfort. Low FODMAP diet discussed with patient. I will see patient in 6 months. We will recheck his liver enzymes. Patient is agreeable to plan of care and verbalizes understanding of instructions. He was given the opportunity to ask questions and all questions answered. ? Thank you for allowing me to participate in his care Plan Medications New sennosides (Natural Senna Laxative) 17.2 mg (2 x 8.6 mg) PO BEDTIME 180 tabs 3RF constipation K59.00 TODAY'S VISIT Patient is here today for follow-up. Patient reports that he has been feeling well. Moving his bowels without any issues. Patient states that his acid reflux is suppressed he currently is taking pantoprazole 40 mg daily. We will consider weaning him off and start him on 20 and see if he will be able to tolerate. Patient reports that he will have occasional postprandial loose stools and bloating. Patient states that he has not tried or had any interest at this point to lose weight for to change his diet. Patient denies any nausea or vomiting. Denies any melena, hematochezia, unintentional weight loss or ribbon like his. Patient denies any dyspepsia, dysphagia or odynophagia PFSH Medical History Esophagitis Gastritis Asthma Back pain Chest pain Fall Chest wall pain Shortness of breath on exertion LFTs abnormal TSH elevation Poorly controlled type 2 diabetes mellitus Abscess Cholelithiasis Colon cancer screening Umbilical hernia Hypogonadism in male Obesity Hypertension GERD (gastroesophageal reflux disease) Surgical History History of esophagogastroduodenoscopy (EGD) Hx of colonoscopy Laryngeal polyp Hx of LASIK History of appendectomy Family History Father Heart attack Mother No problems noted. Sister No problems noted. Daughter No problems noted. Maternal Grandmother Ovarian cancer Paternal Grandfather Heart attack Paternal Uncle Alcohol abuse Social History Housing: House Alcohol intake: former Year quit: 2013 Patient Tobacco Use Status: Former Tobacco user Quit Date: 2017 Tobacco use type: Cigarette Years Smoked: 25+/- 2017 e-Cigarette/Vaping Use: Never Used Second Hand Smoke Exposure: No service: No Current occupational status: employed Cognitive needs: No Hearing needs: No Vision needs: Yes Review of Systems Const Denies weight gain and Denies weight loss ENT Reports no additional complaints, Denies dysphagia and Denies odynophagia Card Reports no additional complaints Resp Reports no additional complaints GI Denies abdominal pain, Denies belching, Denies melena, Denies bloating, Denies change in bowel habits, Reports constipation, Denies dysphagia, Denies excessive flatus, Denies dyspepsia, Denies heartburn, Denies diarrhea, Denies loose stools, Denies nausea, Denies odynophagia and Denies vomiting Reports no additional complaints Musc Reports no additional complaints Neuro Reports no additional complaints Psych Reports no additional complaints Endo Reports no additional complaints Physical Exam Vital Signs: Last Vital Signs Pulse 93 02/08/23 15:41 BP 135/88 02/08/23 15:41 BMI result Body Mass Index 46.7 Const General: healthy appearing, no acute distress and well developed Nutritional Appearance: obese Orientation/consciousness: patient oriented x3 HEENT Head: Yes normal to inspection, Yes normocephalic and Yes atraumatic Face and sinus: Yes normal facial exam Mouth: Normal oral and palatal mucosa present Throat: Yes posterior oropharynx normal, Yes tonsils normal and Yes uvula midline Eyes General: appearance normal, both eyes and all related structures Neck Neck: Yes normal visual inspection, Yes full ROM and Yes trachea midline Thyroid: Thyroid normal Resp Effort & Inspection: normal respiratory effort, able to speak in complete sentences, no tracheal deviation and symmetric chest movement Auscultation: clear to auscultation bilaterally Cardio Rate: regular rate Heart sounds: S1 normal heart sound present and S2 normal heart sound present GI Inspection: Yes normal to inspection, No distended and Yes obesity Palpation (GI): Soft to palpation, not firm, nontender and No hepatosplenomegaly present Auscultation: normal bowel sounds General: Yes no CVA tenderness Back/Spine/Pelvis Back: no CVA tenderness Skin General skin exam: elasticity normal, turgor normal and dry skin Neuro General: patient oriented x3 Psych Appearance: grossly normal Mental Status: mental status grossly normal Speech and movement: Normal speech and movement present Assessment & Plan Assessment & Plan (1) GERD (gastroesophageal reflux disease): Code(s): K21.9 - Gastro-esophageal reflux disease without esophagitis Qualifiers: Esophagitis presence: with esophagitis Esophagitis bleeding: without hemorrhage Qualified Code(s): K21.00 - Gastro-esophageal reflux disease with esophagitis, without bleeding (2) Fatty liver: Code(s): K76.0 - Fatty (change of) liver, not elsewhere classified (3) Constipation: Code(s): K59.00 - Constipation, unspecified Qualifiers: Constipation type: slow transit constipation Qualified Code(s): K59.01 - Slow transit constipation (4) IBS (irritable bowel syndrome): Code(s): K58.9 - Irritable bowel syndrome without diarrhea Qualifiers: Irritable bowel syndrome type: with both diarrhea and constipation Qualified Code(s): K58.2 - Mixed irritable bowel syndrome Plan Patient was encouraged to avoid dietary triggers. He can start taking pantoprazole 20 mg daily. Patient was encouraged to eat low-fat diet and try to lose weight. Stressed the importance as he has been diagnosed previously with RODNEY. Colonoscopy will be due in March of 2025. Will repeat liver enzymes next visit 1 year. Patient has blood work done by his PCP periodically as well. Patient is agreeable to this plan and verbalizes understanding of instructions. He was given the opportunity to ask questions and all questions answered. Thank you for allowing me to participate in his care Medications: New pantoprazole 20 mg PO DAILY 90 tabs 3RF Discontinued pantoprazole take one tablet half an hour before breakfast Discontinued Reason: Doctor's Order 40 mg PO DAILY 90 tabs 2RF K21.9 - Gastro-esophageal reflux disease without esophagitis Coding Level of Care Code Est Pt Level 4 (04687) Diagnoses Gastroesophageal reflux disease with esophagitis without hemorrhage K21.00 Esophagitis presence: with esophagitis Esophagitis bleeding: without hemorrhage Fatty liver K76.0 Slow transit constipation K59.01 Constipation type: slow transit constipation Irritable bowel syndrome with both constipation and diarrhea K58.2 Irritable bowel syndrome type: with both diarrhea and constipation Time Spent (min) 35 Comment 20 minutes spent with patient and additional 15 minutes spent reviewing his records
[2023-02-08 15:41] VITALS: BP 135/88; PULSE 93; BMI 46.7
== END 2023-02-08 15:58 | disposition home or self-care (01) ==
PROVIDERS: Visit Provider Nurse Practitioner Family
DX: K21.00 Gastro-esophageal reflux disease with esophagitis, without bleeding (principal); K76.0 Fatty (change of) liver, not elsewhere classified; K59.01 Slow transit constipation; K58.2 Mixed irritable bowel syndrome
CPT/HCPCS: 99214

== ENCOUNTER → 2023-02-08 15:33 | Outpatient (BNVA) | payer OTHER, SELFPAY | PROVIDERS: Visit Provider Nurse Practitioner Family | DX: K21.00 Gastro-esophageal reflux disease with esophagitis, without bleeding (principal); K76.0 Fatty (change of) liver, not elsewhere classified; K59.01 Slow transit constipation; K58.2 Mixed irritable bowel syndrome | CPT/HCPCS: 99212 ==

== ENCOUNTER 2023-04-26 13:02 | Outpatient (AMB) | payer OTHER, SELFPAY ==
--- NOTE | 2023-04-26 13:14 | MHC.PC.OV ---
Vital Signs 04/26/23 13:15 04/26/23 13:44 Height 5 ft 11 in Weight 149.9 kg BMI 46.1 BP 130/90 H 134/88 Blood Pressure Location Lt brachial Lt brachial Position Sitting Sitting Pulse 95 Pulse Source Pulse Oximeter Pulse Oximetry (%) 91 L Oxygen Delivery Method Room Air Intake Visit Reasons: 3m F/U DM Assurance Specialist Required: No Accompanied by: Self / Same As Patient Allergies Iodinated Contrast Media Allergy (Mild, Verified 04/26/23 13:15) Abdominal Pain Penicillins Allergy (Mild, Verified 04/26/23 13:15) Hives Medication List - Last Reconciled 04/26/23 by Marilee Lunsford MD albuterol sulfate 90 mcg/actuation (Ventolin HFA) 2 puffs PO Q6H PRN azelastine 2 sprays intranasal BID buspirone 40 mg PO DAILY diazepam 5 mg PO DAILY PRN docusate sodium 100 mg PO BEDTIME empagliflozin (Jardiance) 10 mg PO DAILY glipizide 10 mg PO BID 90 days lisinopril 10 mg PO DAILY metformin 500 mg PO TIDWMEAL 90 days milk thistle 150 mg PO BID needle (disp) 18 G (BD Regular Bevel [place]) To draw up medication needle (disp) 22 G (BD Regular Bevel [place]) To inject Testosterone pantoprazole 20 mg PO DAILY polyethylene glycol 3350 (Miralax) 17 grams PO DAILY sennosides (Natural Senna Laxative) 17.2 mg (2 x 8.6 mg) PO BEDTIME syringe (disposable) (BD Luer-Savi Syringe) Testosterone injection weekly tadalafil 10 mg PO DAILY 90 days testosterone cypionate (Depo-Testosterone) 80 mg (0.4 mL) subcut QWEEK 4 weeks Tobacco use date assessed: 10/05/22 Dental Screening Dental Screen Date: 04/26/23 Did you have a dental visit in the last 12 months?: Yes Did you have a dental problem in the last 6 months where you did not have access to dental care?: No Was dental information given to patient?: Patient has dentist HPI 3m F/U DM HPI Details 47-year-old morbidly obese male with uncontrolled diabetes mellitus hypertension GERD fatty liver generalized anxiety disorder coming in for follow-up. Last seen in September 2022. Patient has colonoscopy up-to-date March 2022 repeat in 3-4 years.. Review of the notes was seen by the bi data modeler January 2023 GERD discussed about eating healthier patient was prescribed pantoprazole 20 mg once a day and discussed about RODNEY. Patient did see urology also erectile dysfunction that the Elavil given testosterone deficiency/hypogonadism given testosterone 80 mg weekly. December 2022 last blood work showing no anemia normal PSA low testosterone. [facility] Medical History Esophagitis Gastritis Asthma Back pain Chest pain Fall Chest wall pain Shortness of breath on exertion LFTs abnormal TSH elevation Poorly controlled type 2 diabetes mellitus Abscess Cholelithiasis Colon cancer screening Umbilical hernia Hypogonadism in male Obesity Hypertension GERD (gastroesophageal reflux disease) Surgical History History of esophagogastroduodenoscopy (EGD) Hx of colonoscopy Laryngeal polyp Hx of LASIK History of appendectomy Family History Father Heart attack Mother No problems noted. Sister No problems noted. Daughter No problems noted. Maternal Grandmother Ovarian cancer Paternal Grandfather Heart attack Paternal Uncle Alcohol abuse Social History Housing: House Alcohol intake: former Year quit: 2013 Patient Tobacco Use Status: Former Tobacco user Quit Date: 2017 Tobacco use type: Cigarette Years Smoked: 25+/- 2016 e-Cigarette/Vaping Use: Never Used Second Hand Smoke Exposure: No service: No Current occupational status: employed Cognitive needs: No Hearing needs: No Vision needs: Yes Questionnaire Thrive Questionnaire Date Thrive assessed: 06/29/22 LONDON-7 AMB Questionnaire LONDON-7 Date LONDON - 7 assessed: 06/29/22 Source: Developed by Drs. Kervin Santiago, Samira Tinoco, Tucker Lord and colleagues, with an educational sparkle from [employer]. Physical exam (Primary Care) Vital Signs: Last Vital Signs Pulse 95 04/26/23 13:15 BP 134/88 04/26/23 13:44 Pulse Ox 91 L 04/26/23 13:15 Oxygen Delivery Method Room Air 04/26/23 13:15 BMI result Body Mass Index 46.1 Tobacco/Smoking Status: Tobacco use Status Tobacco use date assessed 10/05/22 04/26/23 13:17 Patient Tobacco Use Status Former Tobacco user 04/26/23 13:17 Tobacco use type Cigarette 04/26/23 13:17 e-Cigarette/Vaping Use Never Used 04/26/23 13:17 Thrive Assessment: Date of Thrive Assessment Date Thrive assessed 06/29/22 04/26/23 13:17 Const General: alert; No acute distress Eyes Conjunctivae: conjunctivae normal Resp Auscultation: clear to auscultation bilaterally Cardio Rate: regular rate Rhythm: regular rhythm GI Inspection: Yes normal to inspection Extrem General: Yes normal to inspection and No edema Office Procedures Flu Questionnaire Does the patient have a severe egg allergy?: No Does the patient have severe life threatening allergies?: No Does the patient have a fever or illness today?: No Has the patient ever had Guillain-[place] Syndrome?: No Has the patient ever had any past reaction to a flu shot?: No Results AMB Hemoglobin A1c AMB Hemoglobin A1c 8.8 % Last Edit by Elizabeth Will on 04/26/23 13:30 Immunizations flu vacc [id number] 6mos up(PF) 60 mcg(15 mcgx4)/0.5 mL IM syringe Performing Provider: Marilee Lunsford MD [facility] Administered by: Esperanza Rowan CMA on 04/26/23 13:59 Dose Route Admin Location Dispensed Lot Number Expiration Date NDC Pathology Laboratory Technologist 0.5 mL IM Left Deltoid 0.5 mL [id number] 10/29/23 82221-536-09 [facility] Given Date VIS Provided VIS Publication Date 04/26/23 Single Vaccine 20 Eligibility Eligibility Date Funding Source Not [facility] Eligible 04/26/23 Private Results Reviewed Results Reviewed: Laboratory Last Values Hgb A1c (Clinic) 8.8 % (4.0-6.0) H 04/26/23 13:28 Assessment and Plan Assessment & Plan (1) Type 2 diabetes mellitus with hyperglycemia: Code(s): E11.65 - Type 2 diabetes mellitus with hyperglycemia Plan: Decrease the amount of carbohydrate intake, pasta, bread, rice and potatoes are all sugar and that is aside from all the sweet stuff, remember that fruits are good but they are Sweet also. Hemoglobin A1c goal of less than 6.5. Patient on Jardiance 10 mg once a day glipizide 10 mg once a day metformin 500 mg 3 times a day (2) Morbid (severe) obesity due to excess calories: Code(s): E66.01 - Morbid (severe) obesity due to excess calories Plan: Diet and exercise (3) GERD (gastroesophageal reflux disease): Code(s): K21.9 - Gastro-esophageal reflux disease without esophagitis Qualifiers: Esophagitis bleeding: without hemorrhage Esophagitis presence: with esophagitis Qualified Code(s): K21.00 - Gastro-esophageal reflux disease with esophagitis, without bleeding Plan: Avoid the foods that causes that usually spicy foods, tomato products, juices, coffee, soda and foods that your sensitive to. After eating do not lie down, allow 3-4 hours before in lie down. And keep the head of bed above 30 degrees to avoid the acid from going up. Placed on pantoprazole 20 mg once a day (4) Hypertension: Code(s): I10 - Essential (primary) hypertension Plan: Continue with blood pressure medication. Decrease salt intake and exercise patient on lisinopril 10 mg once a day (5) Cholelithiasis: Comment: March 2022Enlarged echogenic liver suggestive of fatty infiltration. Slightly enlarged spleen. Gallstones. Right renal cyst. Limited visualization of the pancreas, aorta and IVC. Code(s): K80.20 - Calculus of gallbladder without cholecystitis without obstruction Plan: Low-fat diet (6) Hypogonadism in male: Code(s): E29.1 - Testicular hypofunction Plan: Patient follows up with urology has been given the higher dose of tadalafil and discussed about testosterone replacement also (7) Generalized anxiety disorder: Comment: Dr. Willoughby Code(s): F41.1 - Generalized anxiety disorder Orders: Orders Influenza [id number] Immunization Today Z23 - Encounter for immunization AMB Hemoglobin A1c Today Z13.9 - Encounter for screening, unspecified Medications: Changed From buspirone 40 mg PO DAILY F41.1 - Generalized anxiety disorder To buspirone 40 mg (4 x 10 mg) PO DAILY 120 tabs 2RF 30 days F41.1 - Generalized anxiety disorder From empagliflozin (Jardiance) 10 mg PO DAILY 30 tabs 3RF E11.65 - Type 2 diabetes mellitus with hyperglycemia To empagliflozin 25 mg PO DAILY 90 tabs 3RF 90 days E11.65 - Type 2 diabetes mellitus with hyperglycemia Coding Level of Care Code Est Pt Level 4 (45585) Diagnoses Type 2 diabetes mellitus with hyperglycemia E11.65 Morbid (severe) obesity due to excess calories E66.01 Gastroesophageal reflux disease with esophagitis without hemorrhage K21.00 Esophagitis bleeding: without hemorrhage Esophagitis presence: with esophagitis Hypertension I10 Cholelithiasis K80.20 Hypogonadism in male E29.1 Generalized anxiety disorder F41.1
[2023-04-26 13:15] VITALS: BP 130/90; PULSE 95; O2SAT 91; BMI 46.1
[2023-04-26 13:44] VITALS: BP 134/88
== END 2023-04-26 14:03 | disposition home or self-care (01) ==
PROVIDERS: PCP Internal Medicine; Visit Provider Internal Medicine
DX: Z23 Encounter for immunization (principal); E11.65 Type 2 diabetes mellitus with hyperglycemia; K21.00 Gastro-esophageal reflux disease with esophagitis, without bleeding; I10 Essential (primary) hypertension; K80.20 Calculus of gallbladder without cholecystitis without obstruction; E29.1 Testicular hypofunction; F41.1 Generalized anxiety disorder
CPT/HCPCS: 83036; 90471; 90686; 99214

== ENCOUNTER 2023-07-19 13:26 | Outpatient (AMB) | payer OTHER, SELFPAY ==
--- NOTE | 2023-07-19 13:28 | A.OFFVIS_ITS ---
Intake Intake Visit Reasons: 6M PSA/CBC/Testo(set) Intake Note: Patient presents today for a follow-up on labs: PSA/CBC/Testo Meds- Tadalafil, Testosterone cypionate Allergies to Antibiotic- Penicillins Blood Thinner- None Broke Man Required: No Allergies Iodinated Contrast Media Allergy (Mild, Verified 07/19/23 13:30) Abdominal Pain Penicillins Allergy (Mild, Verified 07/19/23 13:30) Hives HPI HPI Comments History of Present Illness Details Jaspreet is a pleasant male. He is a patient of Dr. Lunsford. He is seen for the following urologic conditions - erectile dysfunction with type 2 diabe parker - lower urinary tract symptoms - hypogonadism Telemedicine Evaluation 15 min Consultation Uepaa Raphael Video attempted High-dose daily tadalafil with on demand appears to be effective 10 mg daily, up to 40 on demand Injection Day: Monday Lab Day: Mon Testosterone 80mg weekly Good recovery of testosterone 459, high hematocrit 57 Repeat in 6 months May benefit from Zyosted Hypogonadism Intermittent treatment for many years Insurance issues related to topical therapy Prescription for injectable provided Erectile dysfunction with type 2 diabetes Progressive Able to obtain but cannot maintain erection Comorbid diagnoses include diabetes Therapy - daily tadalaifl Investigations - 12/20 T 230 F 65, 10/21 T 127 Free 38, 01/21 T 242 H 52.8 Lower urinary tract symptoms Mild nocturia Mild urgency frequency PFSH Medical History Esophagitis Gastritis Asthma Back pain Chest pain Fall Chest wall pain Shortness of breath on exertion LFTs abnormal TSH elevation Poorly controlled type 2 diabetes mellitus Abscess Cholelithiasis Colon cancer screening Umbilical hernia Hypogonadism in male Obesity Hypertension GERD (gastroesophageal reflux disease) Surgical History History of esophagogastroduodenoscopy (EGD) Hx of colonoscopy Laryngeal polyp Hx of LASIK History of appendectomy Family History Father Heart attack Mother No problems noted. Sister No problems noted. Daughter No problems noted. Maternal Grandmother Ovarian cancer Paternal Grandfather Heart attack Paternal Uncle Alcohol abuse Social History Housing: House Alcohol intake: former Year quit: 2013 Patient Tobacco Use Status: Former Tobacco user Quit Date: 2017 Tobacco use type: Cigarette Years Smoked: 25+/- 2016 e-Cigarette/Vaping Use: Never Used Second Hand Smoke Exposure: No service: No Current occupational status: employed Cognitive needs: No Hearing needs: No Vision needs: Yes Review of Systems Const Denies chills and Denies fever(s) Card Reports no additional complaints and Denies syncope Resp Denies cough GI Denies abdominal pain and Denies heartburn Reports as per HPI and Denies change in libido Neuro Denies syncope Psych Denies change in libido Endo Denies change in libido Physical Exam Const General: cooperative, healthy appearing, comfortable and no acute distress Orientation/consciousness: patient oriented x3 HEENT Face and sinus: Yes normal facial exam Mouth: moist mucous membranes Neck Neck: Yes normal visual inspection, Yes full ROM and Yes trachea midline Chest Chest palpation & inspection: normal inspection of the chest Resp Effort & Inspection: normal respiratory effort, able to speak in complete sentences and no respiratory distress GI Inspection: Yes normal to inspection Back/Spine/Pelvis Cervical Spine: normal cervical lordosis Thoracic/Lumbar Spine: thoracic and lumbar spine normal to inspection Skin General skin exam: no rashes or lesions noted Neuro General: patient oriented x3, gait normal, tone normal and moves all extremities Extrem General: Yes normal to inspection and Yes capillary refill normal Assessment & Plan Assessment & Plan (1) Erectile dysfunction associated with type 2 diabetes mellitus: Code(s): E11.69 - Type 2 diabetes mellitus with other specified complication; N52.1 - Erectile dysfunction due to diseases classified elsewhere (2) Hypogonadism in male: Code(s): E29.1 - Testicular hypofunction Plan Six-month follow-up lab work Orders: Orders Complete Blood Count no Diff 6 Months E29.1 - Testicular hypofunction Prostate Specific Antigen 6 Months E29.1 - Testicular hypofunction Testosterone, Total 6 Months E29.1 - Testicular hypofunction Medications: Refilled needle (disp) 22 G To inject Testosterone 30 ea 0RF E29.1 - Testicular hypofunction, E34.9 - Endocrine disorder, unspecified needle (disp) 18 G (BD Regular Bevel [place]) To draw up medication 50 ea 0RF E29.1 - Testicular hypofunction testosterone cypionate (Depo-Testosterone) 80 mg (0.4 mL) subcut QWEEK 4 weeks 2 mL 5RF E29.1 - Testicular hypofunction, [id number] syringe (disposable) (BD Luer-Savi Syringe) Testosterone injection weekly 50 ea 0RF E29.1 - Testicular hypofunction, E34.9 - Endocrine disorder, unspecified Patient Instructions: Imaging studies, laboratory and physical exam results were discussed and reviewed in detail. No major barriers to patient understanding were identified. An opportunity to ask questions regarding the treatment plan was provided. All questions were answered. The patient expressed understanding and agreement with the above treatment plan. The patient is aware they should contact our office by phone for worsening of their current condition or the appearance of new urologic symptoms. Compliance is encouraged with any medications and followup testing that is ordered. It is a privilege to participate in the urologic care of your patient. If you have any questions or concerns regarding treatment for the above conditions, or other urologic issues, please do not hesitate to contact me. The office telephone contact is [phone]. This note is constructed using voice recognition software. While every effort has been made to ensure accuracy semiconductor wafers etcher stripper errors may have been included. Yours sincerely, Dr Sandip Becker MD, [facility] Providers of Expert, Compassionate Care for the Genitourinary System Telehealth Telehealth Location of provider rendering services: practice address Location of patient: address on file Patient Identification confirmed using: Name, : Yes Telehealth method: video Patient verbally consented to treatment: Yes Patient verbally consented to billing insurance company: Yes Patient informed of any privacy concerns related to visit: Yes Coding Level of Care Code Tele Est Pt Level 3 (39131) Diagnoses Erectile dysfunction associated with type 2 diabetes mellitus E11.69; N52.1 Hypogonadism in male E29.1
== END 2023-07-19 17:29 | disposition home or self-care (01) ==
LOC: HO.HUSH 13:26
PROVIDERS: PCP Internal Medicine; Visit Provider Urology
DX: E11.69 Type 2 diabetes mellitus with other specified complication (principal); N52.1 Erectile dysfunction due to diseases classified elsewhere; E29.1 Testicular hypofunction
CPT/HCPCS: 99213

== ENCOUNTER → 2023-07-19 13:26 | Outpatient (BNVA) | payer OTHER, SELFPAY | PROVIDERS: PCP Internal Medicine; Visit Provider Urology ==

== ENCOUNTER 2023-08-02 13:01 | Outpatient (AMB) | payer OTHER, SELFPAY ==
[2023-08-02 13:01] VITALS: BP 134/86; PULSE 90; O2SAT 93; BMI 44.8
--- NOTE | 2023-08-02 13:01 | MHC.PC.OV ---
Vital Signs 08/02/23 13:01 Height 5 ft 11 in Weight 321 lb 0.2 oz BMI 44.8 BP 134/86 Blood Pressure Location Lt brachial Position Sitting Pulse 90 Pulse Source Pulse Oximeter Pulse Oximetry (%) 93 Oxygen Delivery Method Room Air Intake Visit Reasons: DM Allergies Iodinated Contrast Media Allergy (Mild, Verified 08/02/23 13:06) Abdominal Pain Penicillins Allergy (Mild, Verified 08/02/23 13:06) Hives Medication List - Last Reconciled 08/02/23 by Marilee Lunsford MD albuterol sulfate 90 mcg/actuation (Ventolin HFA) 2 puffs PO Q6H PRN azelastine 2 sprays intranasal BID buspirone 40 mg (4 x 10 mg) PO DAILY 30 days diazepam 5 mg PO DAILY PRN docusate sodium 100 mg PO BEDTIME empagliflozin 25 mg PO DAILY 90 days glipizide 10 mg PO BID 90 days lisinopril 10 mg PO DAILY metformin 500 mg PO TIDWMEAL 90 days milk thistle 150 mg PO BID needle (disp) 18 G (BD Regular Bevel [place]) To draw up medication needle (disp) 22 G To inject Testosterone pantoprazole 20 mg PO DAILY polyethylene glycol 3350 (Miralax) 17 grams PO DAILY sennosides (Natural Senna Laxative) 17.2 mg (2 x 8.6 mg) PO BEDTIME syringe (disposable) (BD Luer-Savi Syringe) Testosterone injection weekly tadalafil 10 mg PO DAILY 90 days testosterone cypionate (Depo-Testosterone) 80 mg (0.4 mL) subcut QWEEK 4 weeks Tobacco use date assessed: 08/02/23 Dental Screening Dental Screen Date: 04/26/23 HPI DM HPI Details 47-year-old morbidly obese male with uncontrolled diabetes mellitus GERD hypertension cholelithiasis and hypogonadism last seen in March 2023. Patient also has generalized anxiety disorder. Colonoscopy up-to-date March 2022 3-4 years patient follows up with urology erectile dysfunction and hypogonadism on tadalafil patient is receiving testosterone 80 mg weekly blood work done 07/04/2023 hemoglobin is elevated 18 prostate number 0.5 testosterone 459 thyroid test is normal liver function is normal . L ear pain 3 years but PFSH Medical History Esophagitis Gastritis Asthma Back pain Chest pain Fall Chest wall pain Shortness of breath on exertion LFTs abnormal TSH elevation Poorly controlled type 2 diabetes mellitus Abscess Cholelithiasis Colon cancer screening Umbilical hernia Hypogonadism in male Obesity Hypertension GERD (gastroesophageal reflux disease) Surgical History History of esophagogastroduodenoscopy (EGD) Hx of colonoscopy Laryngeal polyp Hx of LASIK History of appendectomy Family History Father Heart attack Mother No problems noted. Sister No problems noted. Daughter No problems noted. Maternal Grandmother Ovarian cancer Paternal Grandfather Heart attack Paternal Uncle Alcohol abuse Social History Housing: House Alcohol intake: former Year quit: 2013 Patient Tobacco Use Status: Former Tobacco user Quit Date: 2017 Tobacco use type: Cigarette Years Smoked: +/- 2016 e-Cigarette/Vaping Use: Never Used Second Hand Smoke Exposure: No service: No Current occupational status: employed Cognitive needs: No Hearing needs: No Vision needs: Yes Questionnaire PHQ-9 Over the last 2 weeks, how often have you been bothered by any of the following problems? 1. Little interest or pleasure in doing things: not at all 2. Feeling down, depressed, or hopeless: not at all 3. Trouble falling or staying asleep, or sleeping too much: not at all 4. Feeling tired or having little energy: not at all 5. Poor appetite or overeating: not at all 6. Feeling bad about yourself - or that you are a failure or have let yourself or your family down: not at all 7. Trouble concentrating on things, such as reading the newspaper or watching television: not at all 8. Moving or speaking so slowly that other people could have noticed. Or the opposite - being so fidgety or restless that you have been moving around a lot more than usual: not at all 9. Thoughts that you would be better off or of hurting yourself in some way: not at all Total score: 0 Depression Screening Interpretation: Negative Depression Screening Done: Yes 46457 - PHQ-9 Billing: Yes Source: Developed by Drs. Kervin Santiago, Samira Tinoco, Tucker Lord and colleagues, with an educational sparkle from [employer]. Thrive Questionnaire Date Thrive assessed: 08/02/23 I am a: Patient What is your living situation today?: I have a steady place to live Within the past 12 months, did the food you bought not last and you didn't have the money to get more?: Never true Within the past 12 months, did you worry whether your food would run out before you got money to buy more?: Never true Do you have trouble paying for medicines?: No Do you have trouble getting transportation to medical appointments?: No Do you have trouble paying your heating and electricity bill?: No Do you have trouble taking care of your child, family member or friend?: No Do you have trouble with day-to-day activities such as bathing, preparing meals, shopping, managing finances, etc.?: No Are you currently unemployed and looking for a job?: No Are you interested in more education?: No Please select the resources that you would like help with: None Currently or been in a relationship where the following occur: no concerns reported THRIVE Score: 0 AUDIT C Alcohol Use Questionnaire (AUDIT-C) 1. How often do you have a drink containing alcohol?: Never 3. How often do you have six or more drinks on one occasion?: Never Total Score: 0 LONDON-7 AMB Questionnaire LONDON-7 Date LONDON - 7 assessed: 08/02/23 Feeling nervous, anxious, or on edge: 0 = Not at all Not being able to stop or control worryin = Not at all Worrying too much about different things: 0 = Not at all Trouble relaxin = Not at all Being so restless that it is hard to sit still: 0 = Not at all Becoming easily annoyed or irritable: 0 = Not at all Feeling afraid as if something awful might happen: 0 = Not at all Total LONDON-7 score (0-4 normal; 5-9 mild; 10-14 moderate; 15-21 severe): 0 Source: Developed by Drs. Kervin Santiago, Samira Tinoco, Tucker Lord and colleagues, with an educational sparkle from [employer]. LONDON-7 Assessment Billing LONDON-7 Assessment Tool: LONDON-7 Assessment 12941 Physical exam (Primary Care) Vital Signs: Last Vital Signs Pulse 90 08/02/23 13:01 BP 134/86 08/02/23 13:01 Pulse Ox 93 08/02/23 13:01 Oxygen Delivery Method Room Air 08/02/23 13:01 BMI result Body Mass Index 44.8 Tobacco/Smoking Status: Tobacco use Status Tobacco use date assessed 08/02/23 08/02/23 13:09 Patient Tobacco Use Status Former Tobacco user 08/02/23 13:05 Tobacco use type Cigarette 08/02/23 13:05 e-Cigarette/Vaping Use Never Used 08/02/23 13:05 PHQ-9: PHQ-9 Score PHQ-9: Total score 0 08/02/23 13:23 Depression Screening Interpretation: Negative Thrive Assessment: Date of Thrive Assessment Date Thrive assessed 08/02/23 08/02/23 13:25 Currently or been in a relationship where the following occur: no concerns reported Const General: alert; No acute distress Eyes Conjunctivae: conjunctivae normal Resp Auscultation: clear to auscultation bilaterally Cardio Rate: regular rate Rhythm: regular rhythm GI Inspection: Yes normal to inspection Extrem General: Yes normal to inspection and No edema Results AMB Hemoglobin A1c AMB Hemoglobin A1c 7.6 % Last Edit by CHRISTINE Martinez on 08/02/23 13:13 Results Reviewed Results Reviewed: Laboratory Last Values Hgb A1c (Clinic) 7.6 % (4.0-6.0) H 08/02/23 11:24 Assessment and Plan Assessment & Plan (1) Type 2 diabetes mellitus with hyperglycemia: Code(s): E11.65 - Type 2 diabetes mellitus with hyperglycemia Plan: Decrease the amount of carbohydrate intake, pasta, bread, rice and potatoes are all sugar and that is aside from all the sweet stuff, remember that fruits are good but they are Sweet also. Hemoglobin A1c goal of less than 6.5. Patient on Jardiance 25 mg once a day glipizide 10 mg once a day metformin 500 mg 3 times a day. decline additional med and wants to do on his own (2) Morbid (severe) obesity due to excess calories: Code(s): E66.01 - Morbid (severe) obesity due to excess calories Plan: Diet and exercise (3) Hypogonadism in male: Code(s): E29.1 - Testicular hypofunction Plan: Patient has been given by the urologist testosterone. dicsussed about polycythemia (4) Hypertension: Code(s): I10 - Essential (primary) hypertension Plan: Continue with blood pressure medication. Decrease salt intake and exercise presently on lisinopril 10 mg once a day (5) GERD (gastroesophageal reflux disease): Code(s): K21.9 - Gastro-esophageal reflux disease without esophagitis Qualifiers: Esophagitis presence: with esophagitis Esophagitis bleeding: without hemorrhage Qualified Code(s): K21.00 - Gastro-esophageal reflux disease with esophagitis, without bleeding Plan: Avoid the foods that causes that usually spicy foods, tomato products, juices, coffee, soda and foods that your sensitive to. After eating do not lie down, allow 3-4 hours before in lie down. And keep the head of bed above 30 degrees to avoid the acid from going up. (6) Generalized anxiety disorder: Comment: Dr. Willoughby Code(s): F41.1 - Generalized anxiety disorder Plan: Continue with counseling and therapy Orders: Orders AMB Hemoglobin A1c Today E11.65 - Type 2 diabetes mellitus with hyperglycemia Medications: New diazepam 5 mg PO DAILY PRN 30 tabs 0RF Anxiety F41.1 - Generalized anxiety disorder Coding Level of Care Code Est Pt Level 4 (50835) Diagnoses Type 2 diabetes mellitus with hyperglycemia E11.65 Morbid (severe) obesity due to excess calories E66.01 Hypogonadism in male E29.1 Hypertension I10 Gastroesophageal reflux disease with esophagitis without hemorrhage K21.00 Esophagitis presence: with esophagitis Esophagitis bleeding: without hemorrhage Generalized anxiety disorder F41.1 Additional Codes LONDON-7 Assessment Billing - LONDON-7 Assessment Tool: LONDON-7 Assessment [id number] ([id number])
== END 2023-08-02 13:54 | disposition home or self-care (01) ==
PROVIDERS: PCP Internal Medicine; Visit Provider Internal Medicine
DX: E11.65 Type 2 diabetes mellitus with hyperglycemia (principal); E29.1 Testicular hypofunction; I10 Essential (primary) hypertension; K21.00 Gastro-esophageal reflux disease with esophagitis, without bleeding; F41.1 Generalized anxiety disorder
CPT/HCPCS: 83036; 99214

== ENCOUNTER 2023-09-11 14:26 | Outpatient (AMB) | payer OTHER, SELFPAY ==
--- NOTE | 2023-09-11 14:27 | MHC.PC.OV ---
Intake Visit Reasons: Infected Finger Allergies Iodinated Contrast Media Allergy (Mild, Verified 09/11/23 14:27) Abdominal Pain Penicillins Allergy (Mild, Verified 09/11/23 14:27) Hives Tobacco use date assessed: 08/02/23 Dental Screening Dental Screen Date: 09/11/23 Did you have a dental visit in the last 12 months?: Yes Did you have a dental problem in the last 6 months where you did not have access to dental care?: No Was dental information given to patient?: Patient has dentist HPI Infected Finger HPI Details 47-year-old morbidly obese male with uncontrolled diabetes mellitus hypogonadism hypertension generalized anxiety disorder calling in for an acute problem. Last seen in July 2023. Review of the notes in ER visit in 09/01/2023 having right middle finger red and swelling around the finger nail question of a hang nail/ had I and D and diagnosis of paronychia with abscess treated with cephalexin 500 mg q.6 hours. Patient has finished the antibiotic 3 days already and the finger looks better but still swollen and red. [facility] Medical History Esophagitis Gastritis Asthma Back pain Chest pain Fall Chest wall pain Shortness of breath on exertion LFTs abnormal TSH elevation Poorly controlled type 2 diabetes mellitus Abscess Cholelithiasis Colon cancer screening Umbilical hernia Hypogonadism in male Obesity Hypertension GERD (gastroesophageal reflux disease) Surgical History History of esophagogastroduodenoscopy (EGD) Hx of colonoscopy Laryngeal polyp Hx of LASIK History of appendectomy Family History (Updated 09/11/23 @ 14:28 by Esperanza Rowan CMA) Father Heart attack Mother No problems noted. Sister No problems noted. Daughter No problems noted. Maternal Grandmother Ovarian cancer Paternal Grandfather Heart attack Paternal Uncle Alcohol abuse Other Mental health disorder Substance use disorder Social History Housing: House Alcohol intake: former Year quit: 2013 Patient Tobacco Use Status: Former Tobacco user Quit Date: 2017 Tobacco use type: Cigarette Years Smoked: 25+/- 2017 e-Cigarette/Vaping Use: Never Used Second Hand Smoke Exposure: No service: No Current occupational status: employed Cognitive needs: No Hearing needs: No Vision needs: Yes Questionnaire PHQ-9 Over the last 2 weeks, how often have you been bothered by any of the following problems? 1. Little interest or pleasure in doing things: not at all 2. Feeling down, depressed, or hopeless: not at all 3. Trouble falling or staying asleep, or sleeping too much: not at all 4. Feeling tired or having little energy: not at all 5. Poor appetite or overeating: not at all 6. Feeling bad about yourself - or that you are a failure or have let yourself or your family down: not at all 7. Trouble concentrating on things, such as reading the newspaper or watching television: not at all 8. Moving or speaking so slowly that other people could have noticed. Or the opposite - being so fidgety or restless that you have been moving around a lot more than usual: not at all 9. Thoughts that you would be better off or of hurting yourself in some way: not at all Total score: 0 Depression Screening Interpretation: Negative Depression Screening Done: Yes 68670 - PHQ-9 Billing: Yes Source: Developed by Drs. Kervin Santiago, Samira Tinoco, Tucker Lord and colleagues, with an educational sparkle from [employer]. Thrive Questionnaire Date Thrive assessed: 08/02/23 AUDIT C Alcohol Use Questionnaire (AUDIT-C) 1. How often do you have a drink containing alcohol?: Never 3. How often do you have six or more drinks on one occasion?: Never Total Score: 0 LONDON-7 AMB Questionnaire LONDON-7 Date LONDON - 7 assessed: 08/02/23 Source: Developed by Drs. Kervin Santiago, Samira Tinoco, Tucker Lord and colleagues, with an educational sparkle from [employer]. Physical exam (Primary Care) Tobacco/Smoking Status: Tobacco use Status Tobacco use date assessed 08/02/23 09/11/23 14:28 Patient Tobacco Use Status Former Tobacco user 09/11/23 14:28 Tobacco use type Cigarette 09/11/23 14:28 e-Cigarette/Vaping Use Never Used 09/11/23 14:28 PHQ-9: PHQ-9 Score PHQ-9: Total score 0 09/11/23 14:28 Depression Screening Interpretation: Negative Thrive Assessment: Date of Thrive Assessment Date Thrive assessed 08/02/23 09/11/23 14:28 Extrem Hand/finger images: 1. Right periungual 3rd finger swollen and red Telehealth Telehealth Telehealth Platform: Telephone Location of provider rendering services: practice address Location of patient: address on file Patient Identification confirmed using: Name, : Yes Telehealth method: video (Android) Patient verbally consented to treatment: Yes Patient verbally consented to billing insurance company: Yes Patient informed of any privacy concerns related to visit: Yes Assessment and Plan Assessment & Plan (1) Paronychia of finger: Comment: Right 3rd finger Code(s): L03.019 - Cellulitis of unspecified finger Plan: No I and D needed anymore patient is prescribed an antibiotic Medications: New sulfamethoxazole-trimethoprim 800-160 mg (Bactrim DS) 1 tab PO BID 14 tabs 0RF L03.019 - Cellulitis of unspecified finger Coding Level of Care Code Tele Est Pt Level 3 (00467) Diagnoses Paronychia of finger L03.019
== END 2023-09-11 17:59 | disposition home or self-care (01) ==
LOC: HO.HMGH 14:26
PROVIDERS: PCP Internal Medicine; Visit Provider Internal Medicine
DX: L03.011 Cellulitis of right finger (principal)
CPT/HCPCS: 99213

== ENCOUNTER 2023-09-19 16:23 | Outpatient (AMB) | payer OTHER, SELFPAY ==
[2023-09-19 16:32] VITALS: BP 164/96; PULSE 100; O2SAT 95; BMI 43.5
--- NOTE | 2023-09-19 16:32 | MHC.PC.OV ---
Vital Signs 09/19/23 16:32 Height 5 ft 11 in Weight 312 lb BMI 43.5 BP 164/96 H Blood Pressure Location Lt brachial Position Sitting Pulse 100 Pulse Source Pulse Oximeter Pulse Oximetry (%) 95 Oxygen Delivery Method Room Air Intake Visit Reasons: Infected Finger Furniture Sander Required: No Lead Material Handler: Not Required per policy Accompanied by: Self / Same As Patient Allergies Iodinated Contrast Media Allergy (Mild, Verified 09/19/23 16:33) Abdominal Pain Penicillins Allergy (Mild, Verified 09/19/23 16:33) Hives Medication List - Last Reconciled 09/19/23 by Marilee Lunsford MD albuterol sulfate 90 mcg/actuation (Ventolin HFA) 2 puffs PO Q6H PRN azelastine 2 sprays intranasal BID buspirone 40 mg (4 x 10 mg) PO DAILY 30 days diazepam 5 mg PO DAILY PRN docusate sodium 100 mg PO BEDTIME doxycycline hyclate 100 mg PO BID empagliflozin 25 mg PO DAILY 90 days glipizide 10 mg PO BID 90 days lisinopril 10 mg PO DAILY metformin 500 mg PO TIDWMEAL 90 days metronidazole 500 mg PO Q8H 7 days milk thistle 150 mg PO BID needle (disp) 18 G (BD Regular Bevel [place]) To draw up medication needle (disp) 22 G To inject Testosterone pantoprazole 20 mg PO DAILY polyethylene glycol 3350 (Miralax) 17 grams PO DAILY sennosides (Natural Senna Laxative) 17.2 mg (2 x 8.6 mg) PO BEDTIME sulfamethoxazole-trimethoprim 800-160 mg (Bactrim DS) 1 tab PO BID syringe (disposable) (BD Luer-Savi Syringe) Testosterone injection weekly tadalafil 10 mg PO DAILY 90 days testosterone cypionate (Depo-Testosterone) 80 mg (0.4 mL) subcut QWEEK 4 weeks Tobacco use date assessed: 08/02/23 Dental Screening Dental Screen Date: 09/11/23 HPI Infected Finger HPI Details 47-year-old uncontrolled diabetes coming in for swelling of the finger patient was treated with antibiotics and is here for follow-up. [facility] Medical History Esophagitis Gastritis Asthma Back pain Chest pain Fall Chest wall pain Shortness of breath on exertion LFTs abnormal TSH elevation Poorly controlled type 2 diabetes mellitus Abscess Cholelithiasis Colon cancer screening Umbilical hernia Hypogonadism in male Obesity Hypertension GERD (gastroesophageal reflux disease) Surgical History History of esophagogastroduodenoscopy (EGD) Hx of colonoscopy Laryngeal polyp Hx of LASIK History of appendectomy Family History (Updated 09/11/23 @ 14:28 by Esperanza Rowan [facility]) Father Heart attack Mother No problems noted. Sister No problems noted. Daughter No problems noted. Maternal Grandmother Ovarian cancer Paternal Grandfather Heart attack Paternal Uncle Alcohol abuse Other Mental health disorder Substance use disorder Social History Housing: House Alcohol intake: former Year quit: 2013 Patient Tobacco Use Status: Former Tobacco user Quit Date: 2017 Tobacco use type: Cigarette Years Smoked: 25+/- 2016 e-Cigarette/Vaping Use: Never Used Second Hand Smoke Exposure: No service: No Current occupational status: employed Cognitive needs: No Hearing needs: No Vision needs: Yes Questionnaire Thrive Questionnaire Date Thrive assessed: 08/02/23 LONDON-7 AMB Questionnaire LONDON-7 Date LONDON - 7 assessed: 08/02/23 Source: Developed by Drs. Kervin Santiago, Samira Tinoco, Tucker Lord and colleagues, with an educational sparkle from [employer]. Physical exam (Primary Care) Vital Signs: Last Vital Signs Pulse 100 09/19/23 16:32 BP 164/96 H 09/19/23 16:32 Pulse Ox 95 09/19/23 16:32 Oxygen Delivery Method Room Air 09/19/23 16:32 Care Plan Goal for BP management: R fifth finger swelling BMI result Body Mass Index 43.5 Tobacco/Smoking Status: Tobacco use Status Tobacco use date assessed 08/02/23 09/19/23 16:33 Patient Tobacco Use Status Former Tobacco user 09/19/23 16:33 Tobacco use type Cigarette 09/19/23 16:33 e-Cigarette/Vaping Use Never Used 09/19/23 16:33 Thrive Assessment: Date of Thrive Assessment Date Thrive assessed 08/02/23 09/19/23 16:33 Extrem Hand/finger images: 1. R swelling base of the nail and redness up to the DIP Assessment and Plan Assessment & Plan (1) Paronychia of finger: Comment: Right 3rd finger Code(s): L03.019 - Cellulitis of unspecified finger Plan: Patient has finished cephalexin then Bactrim and now given doxycycline and metronidazole. Medications: New doxycycline hyclate 100 mg PO BID 14 caps 0RF L03.019 - Cellulitis of unspecified finger metronidazole 500 mg PO Q8H 7 days 21 tabs 0RF L03.019 - Cellulitis of unspecified finger doxycycline hyclate 100 mg PO BID 14 caps 0RF L03.019 - Cellulitis of unspecified finger Coding Level of Care Code Est Pt Level 3 (89406) Diagnoses Paronychia of finger L03.019
== END 2023-09-19 17:18 | disposition home or self-care (01) ==
PROVIDERS: PCP Internal Medicine; Visit Provider Internal Medicine
DX: L03.011 Cellulitis of right finger (principal)
CPT/HCPCS: 99213

== ENCOUNTER 2023-10-10 16:40 | Outpatient (AMB) | payer OTHER, SELFPAY ==
[2023-10-10 16:59] VITALS: BP 122/80; PULSE 84; BMI 44.8
--- NOTE | 2023-10-10 16:59 | A.OFFPC_ITS ---
Vital Signs 10/10/23 16:59 Height 5 ft 11 in Weight 321 lb 2 oz BMI 44.8 BP 122/80 Blood Pressure Location Lt brachial Position Sitting Pulse 84 Pulse Source Pulse Oximeter Oxygen Delivery Method Room Air Intake Visit Reasons: Feels as if he has something stuck in his throat Document Control Manager Required: No Accompanied by: Self / Same As Patient Allergies Iodinated Contrast Media Allergy (Mild, Verified 10/10/23 17:03) Abdominal Pain Penicillins Allergy (Mild, Verified 10/10/23 17:03) Hives Tobacco use date assessed: 08/02/23 Dental Screening Dental Screen Date: 09/11/23 HPI Feels as if he has something stuck in his throat HPI Details 48-year-old morbidly obese male with a h istory of uncontrolled diabetes mellitus GERD hypertension asthma generalized anxiety disorder coming in for an acute problem last seen in 09/18/2023 for paronychia.- 3 days ago - feels dysphagia sore throat, PFSH Medical History Esophagitis Gastritis Asthma Back pain Chest pain Fall Chest wall pain Shortness of breath on exertion LFTs abnormal TSH elevation Poorly controlled type 2 diabetes mellitus Abscess Cholelithiasis Colon cancer screening Umbilical hernia Hypogonadism in male Obesity Hypertension GERD (gastroesophageal reflux disease) Surgical History History of esophagogastroduodenoscopy (EGD) Hx of colonoscopy Laryngeal polyp Hx of LASIK History of appendectomy Family History (Updated 09/11/23 @ 14:28 by Esperanza Rowan [facility]) Father Heart attack Mother No problems noted. Sister No problems noted. Daughter No problems noted. Maternal Grandmother Ovarian cancer Paternal Grandfather Heart attack Paternal Uncle Alcohol abuse Other Mental health disorder Substance use disorder Social History Housing: House Alcohol intake: former Year quit: 2013 Patient Tobacco Use Status: Former Tobacco user Tobacco use type: Cigarette Years Smoked: 25+/- 2016 e-Cigarette/Vaping Use: Never Used Second Hand Smoke Exposure: No service: No Current occupational status: employed Cognitive needs: No Hearing needs: No Vision needs: Yes Questionnaire Thrive Questionnaire Date Thrive assessed: 08/02/23 LONDON-7 AMB Questionnaire LONDON-7 Date LONDON - 7 assessed: 08/02/23 Source: Developed by Drs. Kervin Santiago, Samira Tinoco, Tucker Lord and colleagues, with an educational sparkle from [employer] ([employer]). Physical exam (Primary Care) Vital Signs: Last Vital Signs Pulse 84 10/10/23 16:59 BP 122/80 10/10/23 16:59 Oxygen Delivery Method Room Air 10/10/23 16:59 BMI result Body Mass Index 44.8 Tobacco/Smoking Status: Tobacco use Status Tobacco use date assessed 08/02/23 10/10/23 17:01 Patient Tobacco Use Status Former Tobacco user 10/10/23 17:01 Tobacco use type Cigarette 10/10/23 17:01 e-Cigarette/Vaping Use Never Used 10/10/23 17:01 Thrive Assessment: Date of Thrive Assessment Date Thrive assessed 08/02/23 10/10/23 17:01 Assessment and Plan Assessment & Plan (1) Dysphagia: Code(s): R13.10 - Dysphagia, unspecified Plan: Advised to cut food release small and Chew thoroughly before swallowing and drink enough fluids to help. (2) GERD (gastroesophageal reflux disease): Code(s): K21.9 - Gastro-esophageal reflux disease without esophagitis Qualifiers: Esophagitis presence: with esophagitis Esophagitis bleeding: without hemorrhage Qualified Code(s): K21.00 - Gastro-esophageal reflux disease with esophagitis, without bleeding Plan: Avoid the foods that causes that usually spicy foods, tomato products, juices, coffee, soda and foods that your sensitive to. After eating do not lie down, allow 3-4 hours before in lie down. And keep the head of bed above 30 degrees to avoid the acid from going up. (3) Morbid (severe) obesity due to excess calories: Code(s): E66.01 - Morbid (severe) obesity due to excess calories Plan: Diet and exercise (4) Type 2 diabetes mellitus with hyperglycemia: Code(s): E11.65 - Type 2 diabetes mellitus with hyperglycemia Plan: Decrease the amount of carbohydrate intake, pasta, bread, rice and potatoes are all sugar and that is aside from all the sweet stuff, remember that fruits are good but they are Sweet also. On metformin 500 mg 3 times a day glipizide 10 mg twice a day Jardiance 25 mg once a day Orders: Orders FL upper GI w Ba Swallow Today R13.10 - Dysphagia, unspecified Coding Level of Care Code Est Pt Level 4 (14767) Diagnoses Dysphagia R13.10 Gastroesophageal reflux disease with esophagitis without hemorrhage K21.00 Esophagitis presence: with esophagitis Esophagitis bleeding: without hemorrhage Morbid (severe) obesity due to excess calories E66.01 Type 2 diabetes mellitus with hyperglycemia E11.65
== END 2023-10-10 17:15 | disposition home or self-care (01) ==
PROVIDERS: PCP Internal Medicine; Visit Provider Internal Medicine
DX: R13.10 Dysphagia, unspecified (principal); E66.01 Morbid (severe) obesity due to excess calories; E11.65 Type 2 diabetes mellitus with hyperglycemia; Z68.41 Body mass index [BMI] 40.0-44.9, adult; K21.00 Gastro-esophageal reflux disease with esophagitis, without bleeding
CPT/HCPCS: 99214

== ENCOUNTER 2023-12-25 08:59 | Outpatient (AMB) | payer OTHER, SELFPAY ==
[2023-12-25 09:00] VITALS: BP 136/80; PULSE 92; O2SAT 95; BMI 43.0
--- NOTE | 2023-12-25 09:00 | MHC.PC.OV ---
Vital Signs 12/25/23 09:00 Height 5 ft 11 in Weight 308 lb BMI 43.0 BP 136/80 Blood Pressure Location Lt brachial Position Sitting Pulse 92 Pulse Source Pulse Oximeter Pulse Oximetry (%) 95 Oxygen Delivery Method Room Air Intake Visit Reasons: UTI symptoms, burning ejaculation,skin swollen. Allergies Iodinated Contrast Media Allergy (Mild, Verified 12/25/23 09:01) Abdominal Pain Penicillins Allergy (Mild, Verified 12/25/23 09:01) Hives Tobacco use date assessed: 08/02/23 Dental Screening Dental Screen Date: 09/11/23 HPI UTI symptoms, burning ejaculation,skin swollen. HPI Details 48-year-old morbidly obese male with uncontrolled diabetes mellitus asthma GERD hypertension hypogonadism fatty liver generalized anxiety disorder coming in for an acute problem. Last seen in September 2023. Last hemoglobin A1c is done in July 2023 at 7.6. Patient's last blood work is June 2023. Elevated hemoglobin at 18 hematocrit at 57 normal PSA total testosterone 459. Blood sugar at that time is 250 creatinine is 0.8 normal thyroid number . patient self med with doxycycline. [facility] Medical History Esophagitis Gastritis Asthma Back pain Chest pain Fall Chest wall pain Shortness of breath on exertion LFTs abnormal TSH elevation Poorly controlled type 2 diabetes mellitus Abscess Cholelithiasis Colon cancer screening Umbilical hernia Hypogonadism in male Obesity Hypertension GERD (gastroesophageal reflux disease) Surgical History History of esophagogastroduodenoscopy (EGD) Hx of colonoscopy Laryngeal polyp Hx of LASIK History of appendectomy Family History (Updated 09/11/23 @ 14:28 by Esperanza Rowan CMA) Father Heart attack Mother No problems noted. Sister No problems noted. Daughter No problems noted. Maternal Grandmother Ovarian cancer Paternal Grandfather Heart attack Paternal Uncle Alcohol abuse Other Mental health disorder Substance use disorder Social History Housing: House Alcohol intake: former Year quit: 2013 Patient Tobacco Use Status: Former Tobacco user Tobacco use type: Cigarette Years Smoked: 25+/- 2017 e-Cigarette/Vaping Use: Never Used Second Hand Smoke Exposure: No service: No Current occupational status: employed Cognitive needs: No Hearing needs: No Vision needs: Yes Questionnaire PHQ-9 Over the last 2 weeks, how often have you been bothered by any of the following problems? 1. Little interest or pleasure in doing things: not at all 2. Feeling down, depressed, or hopeless: not at all 3. Trouble falling or staying asleep, or sleeping too much: not at all 4. Feeling tired or having little energy: not at all 5. Poor appetite or overeating: not at all 6. Feeling bad about yourself - or that you are a failure or have let yourself or your family down: not at all 7. Trouble concentrating on things, such as reading the newspaper or watching television: not at all 8. Moving or speaking so slowly that other people could have noticed. Or the opposite - being so fidgety or restless that you have been moving around a lot more than usual: not at all 9. Thoughts that you would be better off or of hurting yourself in some way: not at all Total score: 0 Depression Screening Interpretation: Negative Depression Screening Done: Yes 01112 - PHQ-9 Billing: Yes Source: Developed by Drs. Kervin Santiago, Samira Tinoco, Tucker Lord and colleagues, with an educational sparkle from [employer]. Thrive Questionnaire Date Thrive assessed: 08/02/23 AUDIT C Alcohol Use Questionnaire (AUDIT-C) 1. How often do you have a drink containing alcohol?: Never 3. How often do you have six or more drinks on one occasion?: Never Total Score: 0 LONDON-7 AMB Questionnaire LONDON-7 Date LONDON - 7 assessed: 08/02/23 Source: Developed by Drs. Kervin Santiago, Tucker Ireland and colleagues, with an educational sparkle from [employer]. Physical exam (Primary Care) Vital Signs: Last Vital Signs Pulse 92 12/25/23 09:00 BP 136/80 12/25/23 09:00 Pulse Ox 95 12/25/23 09:00 Oxygen Delivery Method Room Air 12/25/23 09:00 BMI result Body Mass Index 43.0 Tobacco/Smoking Status: Tobacco use Status Tobacco use date assessed 08/02/23 12/25/23 09:02 Patient Tobacco Use Status Former Tobacco user 12/25/23 09:02 Tobacco use type Cigarette 12/25/23 09:02 e-Cigarette/Vaping Use Never Used 12/25/23 09:02 PHQ-9: PHQ-9 Score PHQ-9: Total score 0 12/25/23 09:15 Depression Screening Interpretation: Negative Thrive Assessment: Date of Thrive Assessment Date Thrive assessed 08/02/23 12/25/23 09:02 Const General: alert; No acute distress Eyes Conjunctivae: conjunctivae normal Resp Auscultation: clear to auscultation bilaterally Cardio Rate: regular rate Rhythm: regular rhythm GI Inspection: Yes normal to inspection Other: Penile shaft noted with erythematous rash up to the glans with mild whitish discharge on the sides of the glans as well as as on the prepuce Extrem General: Yes normal to inspection and No edema Results AMB Hemoglobin A1c AMB Hemoglobin A1c 7.2 % Last Edit by Esperanza Rowan CMA on 12/25/23 09:28 Assessment and Plan Assessment & Plan (1) Type 2 diabetes mellitus with hyperglycemia: Code(s): E11.65 - Type 2 diabetes mellitus with hyperglycemia Plan: Decrease the amount of carbohydrate intake, pasta, bread, rice and potatoes are all sugar and that is aside from all the sweet stuff, remember that fruits are good but they are Sweet also. Hemoglobin A1c goal of less than 6.5. Patient on Jardiance 25 mg once a day glipizide 10 mg twice a day metformin 500 mg 3 times a day (2) Morbid (severe) obesity due to excess calories: Code(s): E66.01 - Morbid (severe) obesity due to excess calories Plan: Diet and exercise (3) Hypertension: Code(s): I10 - Essential (primary) hypertension Plan: Continue with blood pressure medication. Decrease salt intake and exercise on lisinopril 10 mg once a day (4) Balanitis: Code(s): N48.1 - Balanitis Plan: discussed that the problem is because of high BS and jardiance due to urinating sugar. option of stopping med and treating differently but patient would like to decrease the Jardiance 1st and will try to decrease blood sugar. (5) Hypercholesterolemia: Code(s): E78.00 - Pure hypercholesterolemia, unspecified Plan: Avoid fried foods, chicken skin, eggs, butter margarine, pastries and meat. Be it pork or beef they have a lot of cholesterol LDL goal of less than 100 and triglyceride of less than 150. Patient was advised to get blood work done. Orders: Orders Complete Blood Count no Diff Today E29.1 - Testicular hypofunction Prostate Specific Antigen Today E29.1 - Testicular hypofunction AMB Hemoglobin A1c Today Z13.9 - Encounter for screening, unspecified PSA,Total (Free>4and<10) Today E29.1 - Testicular hypofunction Medications: New clotrimazole 1% 1 appl topical BID 4 weeks 30 grams 0RF N48.1 - Balanitis Changed From empagliflozin 25 mg PO DAILY 90 days 90 tabs 3RF E11.65 - Type 2 diabetes mellitus with hyperglycemia To empagliflozin 10 mg PO DAILY 90 days 90 tabs 3RF E11.65 - Type 2 diabetes mellitus with hyperglycemia Discontinued sulfamethoxazole-trimethoprim 800-160 mg (Bactrim DS) Discontinued Reason: Doctor's Order 1 tab PO BID 14 tabs 0RF L03.019 - Cellulitis of unspecified finger Coding Level of Care Code Est Pt Level 4 (59456) Diagnoses Type 2 diabetes mellitus with hyperglycemia E11.65 Morbid (severe) obesity due to excess calories E66.01 Hypertension I10 Balanitis N48.1 Hypercholesterolemia E78.00
== END 2023-12-25 09:33 | disposition home or self-care (01) ==
PROVIDERS: PCP Internal Medicine; Visit Provider Internal Medicine
DX: E11.65 Type 2 diabetes mellitus with hyperglycemia (principal); E66.01 Morbid (severe) obesity due to excess calories; Z68.41 Body mass index [BMI] 40.0-44.9, adult; I10 Essential (primary) hypertension; N48.1 Balanitis; E78.00 Pure hypercholesterolemia, unspecified
CPT/HCPCS: 83036; 99214

== ENCOUNTER 2024-01-03 12:28 | Outpatient (AMB) | payer OTHER, SELFPAY ==
[2024-01-03 12:39] VITALS: BP 132/82; PULSE 86; O2SAT 93; BMI 43.6
--- NOTE | 2024-01-03 12:39 | A.OFFPC_ITS ---
Vital Signs 01/03/24 12:39 Height 5 ft 11 in Weight 313 lb BMI 43.6 BP 132/82 Blood Pressure Location Lt brachial Position Sitting Pulse 86 Pulse Source Pulse Oximeter Pulse Oximetry (%) 93 Oxygen Delivery Method Room Air Intake Visit Reasons: DM Psych Social Worker Required: No Accompanied by: Spouse Allergies Iodinated Contrast Media Allergy (Mild, Verified 01/03/24 12:45) Abdominal Pain Penicillins Allergy (Mild, Verified 01/03/24 12:45) Hives Medication List - Last Reconciled 01/03/24 by Marilee Lunsford MD albuterol sulfate 90 mcg/actuation (Ventolin HFA) 2 puffs PO Q6H PRN azelastine 2 sprays intranasal BID buspirone 40 mg (4 x 10 mg) PO DAILY 30 days clotrimazole 1% 1 appl topical BID 4 weeks diazepam 5 mg PO DAILY PRN docusate sodium 100 mg PO BEDTIME glipizide 10 mg PO BID 90 days lisinopril 10 mg PO DAILY metformin 500 mg PO TIDWMEAL 90 days metronidazole 500 mg PO Q8H 7 days milk thistle 150 mg PO BID needle (disp) 18 G (BD Regular Bevel [place]) To draw up medication needle (disp) 22 G To inject Testosterone pantoprazole 20 mg PO DAILY pen needle, diabetic (BD Ultra-Fine Mini Pen Needle) As directed once a week for ozempic polyethylene glycol 3350 (Miralax) 17 grams PO DAILY semaglutide (Ozempic) 0.25 mg (0.368 mL) subcut QWEEK sennosides (Natural Senna Laxative) 17.2 mg (2 x 8.6 mg) PO BEDTIME syringe (disposable) (BD Luer-Savi Syringe) Testosterone injection weekly tadalafil 10 mg PO DAILY 90 days testosterone cypionate (Depo-Testosterone) 80 mg (0.4 mL) subcut QWEEK 4 weeks Tobacco use date assessed: 08/02/23 Dental Screening Dental Screen Date: 09/11/23 HPI DM HPI Details 48-year-old morbidly obese male with unc ontrolled diabetes mellitus hypertension hypercholesterolemia recently seen for balanitis and was given a cream. This is getting better and has ask for refill on the cream. [facility] Medical History Esophagitis Gastritis Asthma Back pain Chest pain Fall Chest wall pain Shortness of breath on exertion LFTs abnormal TSH elevation Poorly controlled type 2 diabetes mellitus Abscess Cholelithiasis Colon cancer screening Umbilical hernia Hypogonadism in male Obesity Hypertension GERD (gastroesophageal reflux disease) Surgical History History of esophagogastroduodenoscopy (EGD) Hx of colonoscopy Laryngeal polyp Hx of LASIK History of appendectomy Family History (Updated 09/11/23 @ 14:28 by Esperanza Rowan [facility]) Father Heart attack Mother No problems noted. Sister No problems noted. Daughter No problems noted. Maternal Grandmother Ovarian cancer Paternal Grandfather Heart attack Paternal Uncle Alcohol abuse Other Mental health disorder Substance use disorder Social History Housing: House Alcohol intake: former Year quit: 2013 Patient Tobacco Use Status: Former Tobacco user Tobacco use type: Cigarette Years Smoked: 25+/- 2016 e-Cigarette/Vaping Use: Never Used Second Hand Smoke Exposure: No service: No Current occupational status: employed Cognitive needs: No Hearing needs: No Vision needs: Yes Questionnaire Thrive Questionnaire Date Thrive assessed: 08/02/23 LONDON-7 AMB Questionnaire LONDON-7 Date LONDON - 7 assessed: 08/02/23 Source: Developed by Drs. Kervin Santiago, Samira Tinoco, Tucker Lord and colleagues, with an educational sparkle from [employer]. Physical exam (Primary Care) Vital Signs: Last Vital Signs Pulse 86 01/03/24 12:39 BP 132/82 01/03/24 12:39 Pulse Ox 93 01/03/24 12:39 Oxygen Delivery Method Room Air 01/03/24 12:39 BMI result Body Mass Index 43.6 Tobacco/Smoking Status: Tobacco use Status Tobacco use date assessed 08/02/23 01/03/24 12:39 Patient Tobacco Use Status Former Tobacco user 01/03/24 12:39 Tobacco use type Cigarette 01/03/24 12:39 e-Cigarette/Vaping Use Never Used 01/03/24 12:39 Thrive Assessment: Date of Thrive Assessment Date Thrive assessed 08/02/23 01/03/24 12:39 Assessment and Plan Assessment & Plan (1) Type 2 diabetes mellitus with hyperglycemia: Code(s): E11.65 - Type 2 diabetes mellitus with hyperglycemia Plan: Decrease the amount of carbohydrate intake, pasta, bread, rice and potatoes are all sugar and that is aside from all the sweet stuff, remember that fruits are good but they are Sweet also. Hemoglobin A1c goal of less than 6.5. Patient was given Jardiance but had balanitis and so will discontinue this. Patient was introduced into Ozempic and prescription sent to once a week. Discussed and showed the needle and what to do. Discussed that if hypoglycemia occurs to d iscontinue glipizide (2) Hypercholesterolemia: Code(s): E78.00 - Pure hypercholesterolemia, unspecified Plan: Avoid fried foods, chicken skin, eggs, butter margarine, pastries and meat. Be it pork or beef they have a lot of cholesterol LDL goal of less than 100 and triglyceride of less than 150. Patient is advised to get the blood work done patient has declined medication for this. (3) Hypertension: Code(s): I10 - Essential (primary) hypertension Plan: Continue with blood pressure medication. Decrease salt intake and exercise continue with lisinopril 10 mg once a day (4) GERD (gastroesophageal reflux disease): Code(s): K21.9 - Gastro-esophageal reflux disease without esophagitis Qualifiers: Esophagitis presence: with esophagitis Esophagitis bleeding: without hemorrhage Qualified Code(s): K21.00 - Gastro-esophageal reflux disease with esophagitis, without bleeding Plan: Avoid the foods that causes that usually spicy foods, tomato products, juices, coffee, soda and foods that your sensitive to. After eating do not lie down, allow 3-4 hours before in lie down. And keep the head of bed above 30 degrees to avoid the acid from going up. (5) Asthma: Comment: PFT December 2021 Code(s): J45.909 - Unspecified asthma, uncomplicated Plan: Continue with albuterol as needed (6) Balanitis: Code(s): N48.1 - Balanitis Plan: Continue with the cream for 4 weeks. Medications: New semaglutide (Ozempic) for 4 weeks 0.25 mg (0.368 mL) subcut QWEEK 3 mL 1RF E11.65 - Type 2 diabetes mellitus with hyperglycemia pen needle, diabetic (BD Ultra-Fine Mini Pen Needle) As directed 12 ea 3RF E11.65 - Type 2 diabetes mellitus with hyperglycemia pen needle, diabetic (BD Ultra-Fine Mini Pen Needle) As directed once a week for ozempic 12 ea 3RF E11.65 - Type 2 diabetes mellitus with hyperglycemia Refilled clotrimazole 1% 1 appl topical BID 4 weeks 45 grams 0RF N48.1 - Balanitis Discontinued empagliflozin Discontinued Reason: Doctor's Order 10 mg PO DAILY 90 days 90 tabs 3RF E11.65 - Type 2 diabetes mellitus with hyperglycemia Coding Level of Care Code Est Pt Level 4 (67162) Diagnoses Type 2 diabetes mellitus with hyperglycemia E11.65 Hypercholesterolemia E78.00 Hypertension I10 Gastroesophageal reflux disease with esophagitis without hemorrhage K21.00 Esophagitis presence: with esophagitis Esophagitis bleeding: without hemorrhage Asthma J45.909 Balanitis N48.1
== END 2024-01-03 13:26 | disposition home or self-care (01) ==
PROVIDERS: PCP Internal Medicine; Visit Provider Internal Medicine
DX: E11.65 Type 2 diabetes mellitus with hyperglycemia (principal); E78.00 Pure hypercholesterolemia, unspecified; I10 Essential (primary) hypertension; K21.00 Gastro-esophageal reflux disease with esophagitis, without bleeding; J45.909 Unspecified asthma, uncomplicated; N48.1 Balanitis
CPT/HCPCS: 99214

== ENCOUNTER 2024-02-06 15:17 | Outpatient (AMB) | payer OTHER, SELFPAY ==
--- NOTE | 2024-02-06 15:25 | MHC.PC.OV ---
Vital Signs 02/06/24 15:26 Height 5 ft 11 in Weight 309 lb 4 oz BMI 43.1 BP 146/96 H Blood Pressure Location Lt brachial Position Sitting Pulse 105 H Pulse Source Pulse Oximeter Pulse Oximetry (%) 92 Oxygen Delivery Method Room Air Intake Visit Reasons: lungs congestion, yellow mucus, headaches Intake Note: Patient is here to follow up on lungs congestion, confusion, yellow mucus, headaches, difficulty breathing, and no appetite. Home covid test negative. Moving Picture Producer Required: No Data Entry Assistant: Not Required per policy Accompanied by: Self / Same As Patient Allergies Iodinated Contrast Media Allergy (Mild, Verified 02/06/24 19:48) Abdominal Pain Penicillins Allergy (Mild, Verified 02/06/24 19:48) Hives Medication List - Last Reconciled 02/06/24 by Sánchez Vitale MD albuterol sulfate 90 mcg/actuation (Ventolin HFA) 2 puffs PO Q6H PRN azelastine 2 sprays intranasal BID azithromycin take 500 mg today (day 1), then 250 mg for 4 days (days 2-5) PO buspirone 40 mg (4 x 10 mg) PO DAILY 30 days clotrimazole 1% 1 appl topical BID 4 weeks diazepam 5 mg PO DAILY PRN docusate sodium 100 mg PO BEDTIME glipizide 10 mg PO BID 90 days lisinopril 10 mg PO DAILY metformin 500 mg PO TIDWMEAL 90 days metronidazole 500 mg PO Q8H 7 days milk thistle 150 mg PO BID needle (disp) 18 G (BD Regular Bevel Hoffman) To draw up medication needle (disp) 22 G To inject Testosterone pantoprazole 20 mg PO DAILY pen needle, diabetic (BD Ultra-Fine Mini Pen Needle) As directed once a week for ozempic polyethylene glycol 3350 (Miralax) 17 grams PO DAILY prednisone 60 mg (3 x 20 mg) PO DAILY sennosides (Natural Senna Laxative) 17.2 mg (2 x 8.6 mg) PO BEDTIME syringe (disposable) (BD Luer-Savi Syringe) Testosterone injection weekly tadalafil 10 mg PO DAILY 90 days testosterone cypionate (Depo-Testosterone) 80 mg (0.4 mL) subcut QWEEK 4 weeks tirzepatide (Mounjaro) 2.5 mg (0.5 mL) subcut QWEEK Tobacco use date assessed: 02/06/24 Dental Screening Dental Screen Date: 09/11/23 HPI lungs congestion, yellow mucus, headaches HPI Details 48 yr old male presents to the office for a sick visit. I am covering for his regular provider. Sx of wheezing, productive cough and fever for the past few days. Yellow to green sputum. Bleeding near the tip of the penis, happened when he tried to retract the foreskin. BLeeding has since stopped [facility] Medical History Esophagitis Gastritis Asthma Back pain Chest pain Fall Chest wall pain Shortness of breath on exertion LFTs abnormal TSH elevation Poorly controlled type 2 diabetes mellitus Abscess Cholelithiasis Colon cancer screening Umbilical hernia Hypogonadism in male Obesity Hypertension GERD (gastroesophageal reflux disease) Surgical History History of esophagogastroduodenoscopy (EGD) Hx of colonoscopy Laryngeal polyp Hx of LASIK History of appendectomy Family History Father Heart attack Mother No problems noted. Sister No problems noted. Daughter No problems noted. Maternal Grandmother Ovarian cancer Paternal Grandfather Heart attack Paternal Uncle Alcohol abuse Other Mental health disorder Substance use disorder Social History Housing: House Alcohol intake: former Year quit: 2013 Patient Tobacco Use Status: Former Tobacco user Tobacco use type: Cigarette Years Smoked: 25+/- 2017 e-Cigarette/Vaping Use: Never Used Second Hand Smoke Exposure: No service: No Current occupational status: employed Cognitive needs: No Hearing needs: No Vision needs: Yes Questionnaire Thrive Questionnaire Date Thrive assessed: 08/02/23 Are you currently unemployed and looking for a job?: No AUDIT C Alcohol Use Questionnaire (AUDIT-C) 2. How many drinks containing alcohol do you have on a typical day when you are drinking?: 1 or 2 3. How often do you have six or more drinks on one occasion?: Never Total Score: 0 LONDON-7 AMB Questionnaire LONDON-7 Date LONDON - 7 assessed: 08/02/23 Source: Developed by Drs. Kervin Santiago, Samira BTucker Cuevas and colleagues, with an educational sparkle from [employer]. Physical exam (Primary Care) Vital Signs: Last Vital Signs Pulse 105 H 02/06/24 15:26 BP 146/96 H 02/06/24 15:26 Pulse Ox 92 02/06/24 15:26 Oxygen Delivery Method Room Air 02/06/24 15:26 BMI result Body Mass Index 43.1 Tobacco/Smoking Status: Tobacco use Status Tobacco use date assessed 02/06/24 02/06/24 15:32 Patient Tobacco Use Status Former Tobacco user 02/06/24 15:32 Tobacco use type Cigarette 02/06/24 15:32 e-Cigarette/Vaping Use Never Used 02/06/24 15:32 Thrive Assessment: Date of Thrive Assessment Date Thrive assessed 08/02/23 02/06/24 15:32 Const General: cooperative and healthy appearing Nutritional Appearance: well nourished Orientation/consciousness: patient oriented x3 Limitations: no limitations HENMT Head: Yes normal to inspection Eyes General: appearance normal, both eyes and all related structures Neck Neck: Yes normal visual inspection Chest Chest palpation & inspection: normal palpation of entire chest wall Resp Effort & Inspection: normal respiratory effort Other: Penis: fracture of the frenulum. No bleeding Neuro General: patient oriented x3 Coding Level of Care Code Est Pt Level 4 (08752) Complex EM visit Add On G2211 Diagnoses Acute bronchitis J20.9 Laceration of foreskin S31.21XA Assessment & Plan Assessment & Plan (1) Acute bronchitis: Code(s): J20.9 - Acute bronchitis, unspecified Plan: Antibiotics, prednisone called in. Continue to use the inhalers (2) Laceration of foreskin: Code(s): S31.21XA - Laceration without foreign body of penis, initial encounter Plan: Reassurance. Condition is self healing Medications: New azithromycin take 500 mg today (day 1), then 250 mg for 4 days (days 2-5) PO 6 tabs 0RF prednisone 60 mg (3 x 20 mg) PO DAILY 9 tabs 0RF
[2024-02-06 15:26] VITALS: BP 146/96; PULSE 105; O2SAT 92; BMI 43.1
== END 2024-02-06 16:01 | disposition home or self-care (01) ==
PROVIDERS: PCP Internal Medicine; Visit Provider Internal Medicine
DX: J20.9 Acute bronchitis, unspecified (principal); S31.21XA Laceration without foreign body of penis, initial encounter

== ENCOUNTER → 2024-02-06 15:17 | Outpatient (BNVA) | payer OTHER, SELFPAY | PROVIDERS: PCP Internal Medicine; Visit Provider Internal Medicine | DX: J20.9 Acute bronchitis, unspecified (principal); S31.21XA Laceration without foreign body of penis, initial encounter | CPT/HCPCS: 99212 ==

== ENCOUNTER 2024-02-26 13:17 | Outpatient (REF) | payer OTHER, SELFPAY ==
[2024-02-26 15:26] LABS: Hematocrit 46.8 % (42.0-52.0); Hemoglobin 15.8 g/dl (14.0-18.0); Mean Corpuscular HGB Conc 33.8 g/dl (31.0-36.0); Mean Corpuscular Hemoglobin 29.3 pg (27.0-33.0); Mean Corpuscular Volume 86.8 fL (80.0-98.0); Mean Platelet Volume 10.4 fL (9.4-12.4); Platelet Count 188 X10*3/uL (160-400); Red Blood Count 5.39 X10*6/uL (4.60-5.80); Red Cell Distribution Width 14.2 % (11.0-16.0); White Blood Count 6.6 X10*3/uL (4.8-10.8)
[2024-02-26 15:58] LABS: Creatinine Urine 68.64 mg/dL; Microalbum/Creatinine Ratio Ur 14.5 ug/mg cr (<30)
[2024-02-26 16:02] LABS: Alanine Aminotransferase 35 U/L (0-40); Alkaline Phosphatase 49 U/L (39-117); Anion Gap 12 (12-20); Aspartate Amino Transferase 21 U/L (5-37); Blood Urea Nitrogen 13 mg/dL (9-16); Carbon Dioxide 28 mmol/L (22-29); Chloride 99 mmol/L (96-108); Cholesterol 211 mg/dL (<200); Estimated Glomerular Filt Rate > 60; Glucose Random 190 mg/dL (60-115); HDL Cholesterol 54 mg/dL (>40); LDL Cholesterol Calculated 124 mg/dL (<100); Potassium 4.2 mmol/L (3.3-5.1); Sodium 135 mmol/L (135-145); Total Protein 6.6 g/dL (6.5-8.0); Triglycerides 165 mg/dL (<150)
[2024-02-26 16:12] LABS: PSA,Total (Free>4and<10) 0.66 ng/mL (0.00-4.00)
[2024-02-26 16:13] LABS: Prostate Specific Antigen 0.65 ng/mL (<0.05-4.0)
[2024-02-26 16:20] LABS: Free T4 (Free Thyroxine) 1.15 ng/dL (0.71-1.85); Thyroid Stimulating Hormone 2.34 uIU/mL (0.32-4.0)
[2024-02-26 16:26] LABS: Folate 13.9 ng/mL (> or = 4.0); Vitamin B12 994 pg/mL (200-900)
[2024-02-27 12:00] LABS: HBc Num1 0.09 S/CO (0.00-0.79); HBsAGNum1 0.31 S/CO (0.00-0.99); Hepatitis B Core Antibody Nonreactive (Nonreactive); Hepatitis B Surface Antigen Negative (Negative); ~HepC Num1 0.08 S/CO (0.00-0.79); ~Hepatitis B Surface Antibody NONREACTIVE (Nonreactive); ~Hepatitis C Antibody Nonreactive (Nonreactive)
[2024-03-03 13:47] LABS: Testosterone, Free 76.7 pg/mL (35.0-155.0); Testosterone, Total 332 ng/dL (250-1100)
== END 2024-02-26 13:18 | disposition home or self-care (01) ==
LOC: HO.LAB 13:17
PROVIDERS: Absent Provider Urology; PCP Internal Medicine; Visit Provider Internal Medicine
DX: E11.65 Type 2 diabetes mellitus with hyperglycemia (principal); E29.1 Testicular hypofunction; Z12.5 Encounter for screening for malignant neoplasm of prostate; R79.89 Other specified abnormal findings of blood chemistry; E78.00 Pure hypercholesterolemia, unspecified
CPT/HCPCS: 36415; 80053; 80061; 82043; 82570; 82607; 82746; 83036; 84153; 84402; 84403; 84439; 84443; 85027; 86704; 86706; 86803; 87340; 99212

== ENCOUNTER 2024-02-26 13:17 | Outpatient (AMB) | payer OTHER, SELFPAY ==
[2024-02-26 13:24] VITALS: BP 124/70; PULSE 96; O2SAT 93; BMI 42.8
--- NOTE | 2024-02-26 13:24 | MHC.PC.OV ---
Vital Signs 02/26/24 13:24 Height 5 ft 11 in Weight 307 lb BMI 42.8 BP 124/70 Blood Pressure Location Lt brachial Position Sitting Pulse 96 Pulse Source Pulse Oximeter Pulse Oximetry (%) 93 Oxygen Delivery Method Room Air Intake Visit Reasons: Follow Up on Pneumonia Personal Lines Appraiser Required: No Allergies Iodinated Contrast Media Allergy (Mild, Verified 02/26/24 13:24) Abdominal Pain Penicillins Allergy (Mild, Verified 02/26/24 13:24) Hives Tobacco use date assessed: 02/06/24 Dental Screening Dental Screen Date: 09/11/23 HPI Follow Up on Pneumonia HPI Details 48-year-old morbidly obese male with uncontrolled diabetes mellitus hypertension hypercholesterolemia asthma GERD coming in for follow-up last seen having some balanitis and was given clotrimazole cream. Patient is here for follow-up.Urgent center 2023 xray done R lower lobe patch infitrate rx: prednisone and doxycycline . Presentlyu better [facility] Medical History Esophagitis Gastritis Asthma Back pain Chest pain Fall Chest wall pain Shortness of breath on exertion LFTs abnormal TSH elevation Poorly controlled type 2 diabetes mellitus Abscess Cholelithiasis Colon cancer screening Umbilical hernia Hypogonadism in male Obesity Hypertension GERD (gastroesophageal reflux disease) Surgical History History of esophagogastroduodenoscopy (EGD) Hx of colonoscopy Laryngeal polyp Hx of LASIK History of appendectomy Family History Father Heart attack Mother No problems noted. Sister No problems noted. Daughter No problems noted. Maternal Grandmother Ovarian cancer Paternal Grandfather Heart attack Paternal Uncle Alcohol abuse Other Mental health disorder Substance use disorder Social History Housing: House Alcohol intake: former Year quit: 2013 Patient Tobacco Use Status: Former Tobacco user Tobacco use type: Cigarette Years Smoked: +/- 2016 e-Cigarette/Vaping Use: Never Used Second Hand Smoke Exposure: No service: No Current occupational status: employed Cognitive needs: No Hearing needs: No Vision needs: Yes Questionnaire Thrive Questionnaire Date Thrive assessed: 08/02/23 Are you currently unemployed and looking for a job?: No AUDIT C Alcohol Use Questionnaire (AUDIT-C) 2. How many drinks containing alcohol do you have on a typical day when you are drinking?: 1 or 2 3. How often do you have six or more drinks on one occasion?: Never Total Score: 0 LONDON-7 AMB Questionnaire LONDON-7 Date LONDON - 7 assessed: 08/02/23 Source: Developed by Drs. Kervin Santiago, Samira Tinoco, Tucker Lord and colleagues, with an educational sparkle from [email or web address]. Physical exam (Primary Care) Vital Signs: Last Vital Signs Pulse 96 02/26/24 13:24 BP 124/70 02/26/24 13:24 Pulse Ox 93 02/26/24 13:24 Oxygen Delivery Method Room Air 02/26/24 13:24 BMI result Body Mass Index 42.8 Tobacco/Smoking Status: Tobacco use Status Tobacco use date assessed 02/06/24 02/26/24 13:25 Patient Tobacco Use Status Former Tobacco user 02/26/24 13:25 Tobacco use type Cigarette 02/26/24 13:25 e-Cigarette/Vaping Use Never Used 02/26/24 13:25 Thrive Assessment: Date of Thrive Assessment Date Thrive assessed 08/02/23 02/26/24 13:25 Const General: alert; No acute distress Eyes Conjunctivae: conjunctivae normal Resp Auscultation: clear to auscultation bilaterally Cardio Rate: regular rate Rhythm: regular rhythm GI Inspection: Yes normal to inspection Extrem General: Yes normal to inspection and No edema Results AMB Hemoglobin A1c AMB Hemoglobin A1c 9.1 % Last Edit by CHRISTINE Martinez on 02/26/24 13:36 Results Reviewed Results Reviewed: Laboratory Last Values Hgb A1c (Clinic) 9.1 % (4.0-6.0) H 02/26/24 12:36 Coding Level of Care Code Est Pt Level 4 (84093) Diagnoses Type 2 diabetes mellitus with hyperglycemia E11.65 Hypertension I10 Pneumonia J18.9 Assessment & Plan Assessment & Plan (1) Type 2 diabetes mellitus with hyperglycemia: Code(s): E11.65 - Type 2 diabetes mellitus with hyperglycemia Category: Medical Plan: Decrease the amount of carbohydrate intake, pasta, bread, rice and potatoes are all sugar and that is aside from all the sweet stuff, remember that fruits are good but they are Sweet also. Presently on glipizide 10 mg twice a day metformin 500 mg 3 times a day. And was started on Mounjaro (2) Hypertension: Code(s): I10 - Essential (primary) hypertension Category: Medical Plan: Continue with blood pressure medication. Decrease salt intake and exercise patient is on lisinopril 10 mg once a day (3) Pneumonia: Comment: R LL patch infitrate 02/11/2024 Code(s): J18.9 - Pneumonia, unspecified organism Category: Medical Plan: s/p doxycycline treatment - willhave xray done in 2 weeks Orders: Orders AMB Hemoglobin A1c Today E11.65 - Type 2 diabetes mellitus with hyperglycemia XR chest 2V Today J18.9 - Pneumonia, unspecified organism Medications: New dulaglutide (Trulicity) 0.75 mg (0.5 mL) subcut QWEEK 2 mL 2RF E11.65 - Type 2 diabetes mellitus with hyperglycemia Discontinued tirzepatide (Mounjaro) for 4 weeks Discontinued Reason: Insurance Denied 2.5 mg (0.5 mL) subcut QWEEK 2 mL 2RF E11.65 - Type 2 diabetes mellitus with hyperglycemia
== END 2024-02-26 14:46 | disposition home or self-care (01) ==
LOC: HO.HMCH 13:18
PROVIDERS: PCP Internal Medicine; Visit Provider Internal Medicine
DX: E11.65 Type 2 diabetes mellitus with hyperglycemia (principal); I10 Essential (primary) hypertension; J18.9 Pneumonia, unspecified organism

== ENCOUNTER 2024-03-06 16:35 | Outpatient (REF) | payer OTHER, SELFPAY ==
--- NOTE | ~2024-03-06 | XR_ITS ---
EXAMINATION: XR CHEST CLINICAL INFORMATION: Pneumonia. COMPARISON: Most recent chest radiograph dated 02/02/2022. TECHNIQUE: 2 views of the chest were obtained. FINDINGS: Minimal patchy left upper and lower lobe opacities which could represent atelectasis versus very early pneumonia. No pleural effusion or pneumothorax. Stable cardiomediastinal silhouette. XR/XR chest 2V IMPRESSION: Minimal patchy left upper and lower lobe opacities which could represent atelectasis versus very early pneumonia. Electronically signed by: Walter Hui MD 03/07/2024 12:00 PM KATHARINA
== END 2024-03-06 16:36 | disposition home or self-care (01) ==
LOC: HO.XRAY 16:35
PROVIDERS: PCP Internal Medicine; Visit Provider Internal Medicine
DX: J18.9 Pneumonia, unspecified organism (principal)
CPT/HCPCS: 71046

== ENCOUNTER 2024-03-13 15:08 | Outpatient (AMB) | payer OTHER, SELFPAY ==
--- NOTE | 2024-03-13 15:27 | A.OFFVIS_ITS ---
Intake Visit Reasons: 6M PSA/Testo(set) Intake Note: Patient is present for PSA/Testosterone follow up Urology Med: Tadalafil, Testosterone Antibiotic Allergy: Penicillin Blood Thinner: None PSA: 02/26/24- 0.65 Total Testosterone: 02/26/24- 332 Hemoglobin A1C: 9.1(H) Microbiology Coordinator Required: No Accompanied by: Self / Same As Patient Allergies Iodinated Contrast Media Allergy (Mild, Verified 03/13/24 15:33) Abdominal Pain Penicillins Allergy (Mild, Verified 03/13/24 15:33) Hives HPI Comments Details: Jaspreet is a pleasant male. He is a patient of Dr. Lunsford. He is seen for the following urologic conditions - erectile dysfunction with type 2 diabetes - lower urinary tract symptoms - hypogonadism Review current labs High-dose daily tadalafil with on demand appears to be effective 10 mg daily, up to 40 on demand Injection Day: Monday Lab Day: Mon Testosterone 80mg weekly Hypogonadism Intermittent treatment for many years Insurance issues related to topical therapy Prescription for injectable provided Erectile dysfunction with type 2 diabetes Progressive Able to obtain but cannot maintain erection Comorbid diagnoses include diabetes Therapy - daily tadalaifl Investigations - 12/20 T 230 F 65, 10/21 T 127 Free 38, 01/21 T 242 H 52.8, 02/21 332 F 76 Hct 46 Lower urinary tract symptoms Mild nocturia Mild urgency frequency PFSH Medical History Esophagitis Gastritis Asthma Back pain Chest pain Fall Chest wall pain Shortness of breath on exertion LFTs abnormal TSH elevation Poorly controlled type 2 diabetes mellitus Abscess Cholelithiasis Colon cancer screening Umbilical hernia Hypogonadism in male Obesity Hypertension GERD (gastroesophageal reflux disease) Surgical History History of esophagogastroduodenoscopy (EGD) Hx of colonoscopy Laryngeal polyp Hx of LASIK History of appendectomy Family History Father Heart attack Mother No problems noted. Sister No problems noted. Daughter No problems noted. Maternal Grandmother Ovarian cancer Paternal Grandfather Heart attack Paternal Uncle Alcohol abuse Other Mental health disorder Substance use disorder Social History Housing: House Alcohol intake: former Year quit: 2013 Patient Tobacco Use Status: Former Tobacco user Tobacco use type: Cigarette Years Smoked: 25+/- 2017 e-Cigarette/Vaping Use: Never Used Second Hand Smoke Exposure: No service: No Current occupational status: employed Cognitive needs: No Hearing needs: No Vision needs: Yes Review of Systems Const Denies chills and Denies fever(s) Card Reports no additional complaints and Denies syncope Resp Denies cough GI Denies abdominal pain and Denies heartburn Reports as per HPI and Denies change in libido Neuro Denies syncope Psych Denies change in libido Endo Denies change in libido Physical Exam Const General: cooperative, healthy appearing, comfortable and no acute distress Orientation/consciousness: patient oriented x3 HEENT Face and sinus: Yes normal facial exam Mouth: moist mucous membranes Neck Neck: Yes normal visual inspection, Yes full ROM and Yes trachea midline Chest Chest palpation & inspection: normal inspection of the chest Resp Effort & Inspection: normal respiratory effort, able to speak in complete sentences and no respiratory distress GI Inspection: Yes normal to inspection Back/Spine/Pelvis Cervical Spine: normal cervical lordosis Thoracic/Lumbar Spine: thoracic and lumbar spine normal to inspection Skin General skin exam: no rashes or lesions noted Neuro General: patient oriented x3, gait normal, tone normal and moves all extremities Extrem General: Yes normal to inspection and Yes capillary refill normal Assessment & Plan Assessment & Plan (1) Erectile dysfunction associated with type 2 diabetes mellitus: Code(s): E11.69 - Type 2 diabetes mellitus with other specified complication; N52.1 - Erectile dysfunction due to diseases classified elsewhere Category: Medical (2) Hypogonadism in male: Code(s): E29.1 - Testicular hypofunction Category: Medical Plan Six-month follow-up lab Orders: Orders Testosterone, Total 6 Months E29.1 - Testicular hypofunction Complete Blood Count no Diff 6 Months E29.1 - Testicular hypofunction Prostate Specific Antigen 6 Months E29.1 - Testicular hypofunction Medications: Refilled testosterone cypionate (Depo-Testosterone) 80 mg (0.4 mL) subcut QWEEK 2 mL 5RF 4 weeks E29.1 - Testicular hypofunction, [id number] tadalafil 10 mg PO DAILY 90 tabs 1RF sexual activity 90 days E11.69 - Type 2 diabetes mellitus with other specified complication, N52.1 - Erectile dysfunction due to diseases classified elsewhere Patient Instructions: Imaging studies, laboratory and physical exam results were discussed and reviewed in detail. No major barriers to patient understanding were identified. An opportunity to ask questions regarding the treatment plan was provided. All questions were answered. The patient expressed understanding and agreement with the above treatment plan. The patient is aware they should contact our office by phone for worsening of their current condition or the appearance of new urologic symptoms. Compliance is encouraged with any medications and followup testing that is ordered. It is a privilege to participate in the urologic care of your patient. If you have any questions or concerns regarding treatment for the above conditions, or other urologic issues, please do not hesitate to contact me. The office telephone contact is [phone]. This note is constructed using voice recognition software. While every effort has been made to ensure accuracy reproductive endocrinologist errors may have been included. Yours sincerely, Dr Sandip Becker MD, [facility] - Urology Providers of Expert, Compassionate Care for the Genitourinary System Coding Level of Care Code Est Pt Level 3 (32249) Diagnoses Erectile dysfunction associated with type 2 diabetes mellitus E11.69; N52.1 Hypogonadism in male E29.1
== END 2024-03-13 15:59 | disposition home or self-care (01) ==
PROVIDERS: PCP Internal Medicine; Visit Provider Urology
DX: E11.69 Type 2 diabetes mellitus with other specified complication (principal); N52.1 Erectile dysfunction due to diseases classified elsewhere; E29.1 Testicular hypofunction
CPT/HCPCS: 99213

== ENCOUNTER → 2024-03-13 15:08 | Outpatient (BNVA) | payer OTHER, SELFPAY | PROVIDERS: PCP Internal Medicine; Visit Provider Urology | DX: E11.69 Type 2 diabetes mellitus with other specified complication (principal); N52.1 Erectile dysfunction due to diseases classified elsewhere; E29.1 Testicular hypofunction; Z79.899 Other long term (current) drug therapy | CPT/HCPCS: 99212 ==

== ENCOUNTER 2024-05-15 16:19 | Outpatient (AMB) | payer OTHER, SELFPAY ==
[2024-05-15 16:20] VITALS: BP 148/88; PULSE 94; O2SAT 94; BMI 44.2
--- NOTE | 2024-05-15 16:20 | MHC.OFFVIS ---
Vital Signs 05/15/24 16:20 Height 5 ft 11 in Weight 317 lb 0.395 oz BMI 44.2 BP 148/88 H Blood Pressure Location Rt brachial Position Sitting Pulse 94 Pulse Source Pulse Oximeter Pulse Oximetry (%) 94 Oxygen Delivery Method Room Air Intake Visit Reasons: f/u constipation Intake Note: ESTABLISHED PATIENT Reason; 6 mo FU Changes/concerns? Newly on trulicity. No specific GI concerns. Allergies Iodinated Contrast Media Allergy (Mild, Verified 05/15/24 16:21) Abdominal Pain Penicillins Allergy (Mild, Verified 05/15/24 16:21) Hives HPI HPI f/u constipation: Details: LAST VISIT: GERD (gastroesophageal reflux disease) Fatty liver Constipation IBS (irritable bowel syndrome) Plan Patient was encouraged to avoid dietary triggers. He can start taking pantoprazole 20 mg daily. Patient was encouraged to eat low-fat diet and try to lose weight. Stressed the importance as he has been diagnosed previously with RODNEY. Colonoscopy will be due in March of 2025. Will repeat liver enzymes next visit 1 year. Patient has blood work done by his PCP periodically as well. Patient is agreeable to this plan and verbalizes understanding of instructions. He was given the opportunity to ask questions and all questions answered. ? Thank you for allowing me to participate in his care Medications New pantoprazole 20 mg PO DAILY 90 tabs 3RF Discontinued pantoprazole take one tablet half an hour before breakfast Discontinued Reason: Doctor's Order 40 mg PO DAILY 90 tabs 2RF K21.9 TODAY'S VISIT Patient is here today for follow-up. Patient reports that his symptoms of acid reflux are suppressed for the most part. Patient is trying to lose weight. Blood sugars not well controlled. His last A1c was 9.1%. Improved liver function. Patient denies any abdominal pain or discomfort. Currently is taking senna to help him move his bowels better. Patient denies any melena, hematochezia, unintentional weight loss or ribbon like stools. Due to go for colonoscopy end of this year. Patient denies dyspepsia, dysphagia or odynophagia. [facility] Medical History Esophagitis Gastritis Asthma Back pain Chest pain Fall Chest wall pain Shortness of breath on exertion LFTs abnormal TSH elevation Poorly controlled type 2 diabetes mellitus Abscess Cholelithiasis Colon cancer screening Umbilical hernia Hypogonadism in male Obesity Hypertension GERD (gastroesophageal reflux disease) Surgical History History of esophagogastroduodenoscopy (EGD) Hx of colonoscopy Laryngeal polyp Hx of LASIK History of appendectomy Family History Father Heart attack Mother No problems noted. Sister No problems noted. Daughter No problems noted. Maternal Grandmother Ovarian cancer Paternal Grandfather Heart attack Paternal Uncle Alcohol abuse Other Mental health disorder Substance use disorder Social History Housing: House Alcohol intake: former Year quit: 2013 Patient Tobacco Use Status: Former Tobacco user Tobacco use type: Cigarette Years Smoked: +/- 2016 e-Cigarette/Vaping Use: Never Used Second Hand Smoke Exposure: No service: No Current occupational status: employed Cognitive needs: No Hearing needs: No Vision needs: Yes Review of Systems Const Denies weight gain and Denies weight loss ENT Reports no additional complaints, Denies dysphagia and Denies odynophagia Card Reports no additional complaints Resp Reports no additional complaints GI Denies abdominal pain, Denies belching, Denies melena, Denies bloating, Denies change in bowel habits, Reports constipation, Denies dysphagia, Denies excessive flatus, Denies dyspepsia, Denies heartburn, Denies diarrhea, Denies loose stools, Denies nausea, Denies odynophagia and Denies vomiting Reports no additional complaints Musc Reports no additional complaints Neuro Reports no additional complaints Psych Reports no additional complaints Endo Reports no additional complaints Physical Exam Vital Signs: Last Vital Signs Pulse 94 05/15/24 16:20 BP 148/88 H 05/15/24 16:20 Pulse Ox 94 05/15/24 16:20 Oxygen Delivery Method Room Air 05/15/24 16:20 BMI result Body Mass Index 44.2 Const General: healthy appearing and no acute distress Nutritional Appearance: obese Orientation/consciousness: patient oriented x3 Resp Effort & Inspection: normal respiratory effort, able to speak in complete sentences, no tracheal deviation and symmetric chest movement Auscultation: clear to auscultation bilaterally Cardio Rate: regular rate GI Inspection: Yes normal to inspection, No distended and Yes obesity Palpation (GI): Soft to palpation, not firm, nontender and No hepatosplenomegaly present Auscultation: normal bowel sounds General: Yes no CVA tenderness Back/Spine/Pelvis Back: no CVA tenderness Skin General skin exam: elasticity normal, turgor normal and dry skin Neuro General: patient oriented x3 Psych Appearance: grossly normal Mental Status: mental status grossly normal Results Reviewed Results Reviewed: Laboratory Tests 12/25/23 02/26/24 02/26/24 09:02 12:36 14:41 Hgb A1c (Clinic) 7.2 H 9.1 H Total Bilirubin 2.0 H AST 21 ALT 35 Alkaline Phosphatase 49 Triglycerides 165 H Cholesterol 211 H LDL Cholesterol, Calc 124 H Assessment & Plan Assessment & Plan (1) GERD (gastroesophageal reflux disease): Code(s): K21.9 - Gastro-esophageal reflux disease without esophagitis Category: Medical Qualifiers: Esophagitis presence: with esophagitis Esophagitis bleeding: without hemorrhage Qualified Code(s): K21.00 - Gastro-esophageal reflux disease with esophagitis, without bleeding (2) Fatty liver: Code(s): K76.0 - Fatty (change of) liver, not elsewhere classified Category: Medical (3) Constipation: Code(s): K59.00 - Constipation, unspecified Qualifiers: Constipation type: slow transit constipation Qualified Code(s): K59.01 - Slow transit constipation (4) IBS (irritable bowel syndrome): Code(s): K58.9 - Irritable bowel syndrome, unspecified Qualifiers: Irritable bowel syndrome type: without diarrhea Qualified Code(s): K58.9 - Irritable bowel syndrome, unspecified Plan Stressed the importance of eating low-fat, low-salt, low carb and high-protein diet. Patient's blood sugars have not been controlled. Last A1c 9.1%. Continue taking pantoprazole 20 mg. Avoid dietary triggers and late night snacking. Staying upright for minimum 3 hours after meals discussed with patient. Patient will continue taking senna daily. Increase fluid intake and activity to promote better bowel motility. Weight loss encouraged. Patient will return in 6 months, he will call us if he will have any GI concerning symptoms. Patient will be due to go for colonoscopy then will discuss prep and assess for the need to go for upper endoscopy. Patient is agreeable to this plan and verbalizes understanding of instructions. She was given the opportunity to ask questions and all questions answered. Thank you for allowing me to participate in his care Medications: Refilled sennosides (senna) 17.2 mg (2 x 8.6 mg) PO BEDTIME 180 tabs 3RF for constipation K59.00 - Constipation, unspecified Coding Level of Care Code Est Pt Level 3 (22420) Diagnoses Gastroesophageal reflux disease with esophagitis without hemorrhage K21.00 Esophagitis presence: with esophagitis Esophagitis bleeding: without hemorrhage Fatty liver K76.0 Slow transit constipation K59.01 Constipation type: slow transit constipation Irritable bowel syndrome without diarrhea K58.9 Irritable bowel syndrome type: without diarrhea Time Spent (min) 25 Comment 15 minutes spent with patient and additional 10 minutes spent reviewing his records
== END 2024-05-15 16:43 | disposition home or self-care (01) ==
PROVIDERS: PCP Internal Medicine; Visit Provider Nurse Practitioner Family
DX: K21.00 Gastro-esophageal reflux disease with esophagitis, without bleeding (principal); K76.0 Fatty (change of) liver, not elsewhere classified; K59.01 Slow transit constipation; K58.9 Irritable bowel syndrome, unspecified
CPT/HCPCS: 99213

== ENCOUNTER → 2024-05-15 16:19 | Outpatient (BNVA) | payer OTHER, SELFPAY | PROVIDERS: PCP Internal Medicine; Visit Provider Nurse Practitioner Family | DX: K21.00 Gastro-esophageal reflux disease with esophagitis, without bleeding (principal); K76.0 Fatty (change of) liver, not elsewhere classified; K59.00 Constipation, unspecified; K58.1 Irritable bowel syndrome with constipation; K59.01 Slow transit constipation | CPT/HCPCS: 99212 ==

== ENCOUNTER → 2024-06-03 16:20 | Outpatient (BNV) | payer OTHER, SELFPAY | PROVIDERS: PCP Internal Medicine; Visit Provider Radiology Diagnostic Radiology | DX: J84.9 Interstitial pulmonary disease, unspecified (principal) | CPT/HCPCS: 71046 ==

== ENCOUNTER 2024-08-15 15:06 | Outpatient (AMB) | payer OTHER, SELFPAY ==
[2024-08-15 15:11] VITALS: BP 144/92; PULSE 96; O2SAT 90; BMI 45.7
--- NOTE | 2024-08-15 15:11 | A.OFFPC_ITS ---
Vital Signs 3 08/15/24 15:11 08/15/24 15:33 Height 5 ft 11 in Weight 328 lb BMI 45.7 BP 144/92 H 132/90 H Blood Pressure Location Lt brachial Lt brachial Position Sitting Sitting Pulse 96 Pulse Source Pulse Oximeter Pulse Oximetry (%) 90 L Oxygen Delivery Method Room Air Intake Visit Reasons: annual exam Tool Builder Required: No Accompanied by: Self / Same As Patient Allergies Iodinated Contrast Media Allergy (Mild, Verified 08/15/24 15:11) Abdominal Pain Penicillins Allergy (Mild, Verified 08/15/24 15:11) Hives Medication List - Last Reconciled 08/15/24 by Marilee Lunsford MD albuterol sulfate 90 mcg/actuation (Ventolin HFA) 2 puffs PO Q6H PRN azelastine 2 sprays intranasal BID buspirone 40 mg (4 x 10 mg) PO DAILY 30 days clotrimazole 1% topical diazepam 5 mg PO DAILY PRN docusate sodium 100 mg PO BEDTIME glipizide 10 mg PO BID 90 days lisinopril 10 mg PO DAILY metformin 500 mg PO TIDWMEAL 90 days milk thistle 150 mg PO BID needle (disp) 18 G (BD Regular Bevel Gordon) To draw up medication needle (disp) 22 G To inject Testosterone pantoprazole 20 mg PO DAILY pen needle, diabetic (BD Ultra-Fine Mini Pen Needle) As directed once a week for ozempic polyethylene glycol 3350 (Gavilax) 17 grams PO DAILY sennosides (senna) 17.2 mg (2 x 8.6 mg) PO BEDTIME syringe (disposable) (BD Luer-Savi Syringe) Testosterone injection weekly tadalafil 10 mg PO DAILY 90 days testosterone cypionate (Depo-Testosterone) 80 mg (0.4 mL) subcut QWEEK 4 weeks Tobacco use date assessed: 08/15/24 Dental Screening Dental Screen Date: 08/15/24 Did you have a dental visit in the last 12 months?: Yes Did you have a dental problem in the last 6 months where you did not have access to dental care?: No Was dental information given to patient?: Patient has dentist HPI annual exam 2 HPI0 Details cough 5 years ago blacked out 48-year-old morbidly obese male with uncontrolled diabetes mellitus asthma GERD hypertension hypogonadism cholelithiasis hepatic steatosis generalized anxiety disorder erectile dysfunction and hypercholesterolemia last seen January 2024 patient follows up with urology on Depo-Testosterone and tadalafil. Patient is known to have elevated cholesterol but declined cholesterol medication. [facility] Medical History Esophagitis Gastritis Asthma Back pain Chest pain Fall Chest wall pain Shortness of breath on exertion LFTs abnormal TSH elevation Poorly controlled type 2 diabetes mellitus Abscess Cholelithiasis Colon cancer screening Umbilical hernia Hypogonadism in male Obesity Hypertension GERD (gastroesophageal reflux disease) Surgical History History of esophagogastroduodenoscopy (EGD) Hx of colonoscopy Laryngeal polyp Hx of LASIK History of appendectomy Family History Father Heart attack Mother No problems noted. Sister No problems noted. Daughter No problems noted. Maternal Grandmother Ovarian cancer Paternal Grandfather Heart attack Paternal Uncle Alcohol abuse Other Mental health disorder Substance use disorder Social History (Updated 08/15/24 @ 15:39 by Marilee Lunsford MD) Housing: House Alcohol intake: former Year quit: 2013 Comment: once a month 1 bottle Patient Tobacco Use Status: Former Tobacco user Tobacco use type: Cigarette Years Smoked: /- 2016 e-Cigarette/Vaping Use: Never Used Second Hand Smoke Exposure: No service: No Current occupational status: employed Cognitive needs: No Hearing needs: No Vision needs: Yes Questionnaire PHQ-9 Over the last 2 weeks, how often have you been bothered by any of the following problems? 1. Little interest or pleasure in doing things: not at all 2. Feeling down, depressed, or hopeless: not at all 3. Trouble falling or staying asleep, or sleeping too much: nearly every day 4. Feeling tired or having little energy: several days 5. Poor appetite or overeating: nearly every day 6. Feeling bad about yourself - or that you are a failure or have let yourself or your family down: not at all 7. Trouble concentrating on things, such as reading the newspaper or watching television: several days 8. Moving or speaking so slowly that other people could have noticed. Or the opposite - being so fidgety or restless that you have been moving around a lot more than usual: more than half the days 9. Thoughts that you would be better off or of hurting yourself in some way: not at all Total score: 10 Source: Developed by Drs. Kervin Santiago, Samira Tinoco, Tucker Lord and colleagues, with an educational sparkle from [employer]. Thrive Questionnaire Date Thrive assessed: 08/15/24 I am a: Patient What is your living situation today?: I have a steady place to live Within the past 12 months, did the food you bought not last and you didn't have the money to get more?: Never true Within the past 12 months, did you worry whether your food would run out before you got money to buy more?: Never true Do you have trouble paying for medicines?: No Do you have trouble getting transportation to medical appointments?: No Do you have trouble paying your heating and electricity bill?: No Do you have trouble taking care of your child, family member or friend?: No Do you have trouble with day-to-day activities such as bathing, preparing meals, shopping, managing finances, etc.?: No Are you currently unemployed and looking for a job?: No Are you interested in more education?: No Please select the resources that you would like help with: None Currently or been in a relationship where the following occur: No concerns reported THRIVE Score: 0 AUDIT C Alcohol Use Questionnaire (AUDIT-C) 1. How often do you have a drink containing alcohol?: Monthly or less 2. How many drinks containing alcohol do you have on a typical day when you are drinking?: 1 or 2 3. How often do you have six or more drinks on one occasion?: Never Total Score: 1 LONDON-7 AMB Questionnaire LONDON-7 Date LONDON - 7 assessed: 08/15/24 Feeling nervous, anxious, or on edge: 3 = Nearly every day Not being able to stop or control worryin = More than half the days Worrying too much about different things: 3 = Nearly every day Trouble relaxin = Nearly every day Being so restless that it is hard to sit still: 2 = More than half the days Becoming easily annoyed or irritable: 1 = Several days Feeling afraid as if something awful might happen: 1 = Several days Total LONDON-7 score (0-4 normal; 5-9 mild; 10-14 moderate; 15-21 severe): 15 Source: Developed by Drs. Kervin Santiago, Samira Tinoco, Tucker Lord and colleagues, with an educational sparkle from [employer]. Review of Systems Const Denies poor appetite and Denies weakness Eyes Denies no additional complaints ENT Reports Normal hearing present, Denies dizziness, Denies nasal congestion, Denies tinnitus and Denies sore throat Card Denies chest pain, Denies syncope, Denies rapid heart rate and Denies dyspnea Resp Denies cough and Denies dyspnea GI Denies change in stool character, Reports constipation, Denies diarrhea, Denies nausea and Denies vomiting Denies dysuria and Denies urinary frequency Neuro Reports Normal hearing present, Denies confusion, Denies dizziness, Denies syncope and Denies weakness Psych Denies confusion Physical exam (Primary Care) Vital Signs: Last Vital Signs Pulse 96 08/15/24 15:11 BP 132/90 H 08/15/24 15:33 Pulse Ox 90 L 08/15/24 15:11 Oxygen Delivery Method Room Air 08/15/24 15:11 BMI result Body Mass Index 45.7 Tobacco/Smoking Status: Tobacco use Status Tobacco use date assessed 08/15/24 08/15/24 15:18 Patient Tobacco Use Status Former Tobacco user 08/15/24 15:39 Tobacco use type Cigarette 08/15/24 15:39 e-Cigarette/Vaping Use Never Used 08/15/24 15:39 PHQ-9: PHQ-9 Score PHQ-9: Total score 10 08/15/24 16:01 Thrive Assessment: Date of Thrive Assessment Date Thrive assessed 08/15/24 08/15/24 15:18 Currently or been in a relationship where the following occur: No concerns reported Const General: No confusion Orientation/consciousness: No confusion HENMT Head: Yes normocephalic Ears: external ears normal and TM's normal bilaterally Face and sinus: Yes normal facial exam Mouth: moist mucous membranes Throat: Yes tonsils normal Eyes Conjunctivae: conjunctivae normal Pupils: Equal, round and reactive pupils present and Pupil accommodation reflex normal Direct Ophthalmoscopy: normal light reflex Neck Neck: No lymphadenopathy Thyroid: Thyroid normal Chest Chest palpation & inspection: normal inspection of the chest Resp Effort & Inspection: normal respiratory effort and no audible wheezes Auscultation: clear to auscultation bilaterally, no crackles, no wheezes and lung sounds not diminished Cardio Rate: regular rate Rhythm: regular rhythm Peripheral pulses: radial pulses present and dorsalis pedis present GI Other: decllined rectal Palpation (GI): no masses Auscultation: normal bowel sounds and normoactive bowel sounds Rectal Exam - Male: Yes deferred Back/Spine/Pelvis Back/spine/pelvis image: 2 1. 3 cm circumscribe mass non tender Skin General skin exam: no rashes or lesions noted Rashes: no rashes Neuro General: No confusion Cranial nerves: Yes Equal, round and reactive pupils present and Yes Normal hearing present Cognition (Neuro): normal cognition Gait exam (Neuro): Normal gait present Motor exam (neuro): 5/5 motor strength present throughout Deep tendon reflexes (DTR's): Right brachioradialis reflex intensity grade: 2+, Left brachioradialis reflex intensity grade: 2+, Right patellar reflex intensity grade: 2+ and Left patellar reflex intensity grade: 2+ Extrem General: No edema Results AMB Hemoglobin A1c 2 AMB Hemoglobin A1c 10.3 % Last Edit by CHRISTINE Hauser on 08/15/24 15:45 Immunizations pneumoc 20-akosua conj-dip cr(PF) 0.5 mL IM syringe Performing Provider: Marilee Lunsford MD [facility] Administered by: CHRISTINE Hauser on 08/15/24 16:07 2 Dose Route Admin Location Dispensed Lot Number Expiration Date [facility] Enrollment Management Coordinator 0.5 mL IM Left Deltoid 0.5 mL [id number] 06/01/25 [employer]ish[employer] 2 VIS Given Date VIS Provided VIS Publication Date 08/15/24 Single Vaccine 22 Eligibility Eligibility Date Funding Source Not [facility] Eligible 08/15/24 Private Results Reviewed Results Reviewed: Laboratory Last Values Hgb A1c (Clinic) 10.3 % (4.0-6.0) H 08/15/24 15:33 Coding Level of Care Code Est Pt Prev Care 40-64y(97650) Diagnoses Annual physical exam Z00.00 Morbid (severe) obesity due to excess calories E66.01 Type 2 diabetes mellitus with hyperglycemia E11.65 Hypercholesterolemia E78.00 Gastroesophageal reflux disease with esophagitis without hemorrhage K21.00 Esophagitis bleeding: without hemorrhage Esophagitis presence: with esophagitis Asthma J45.909 Hypertension I10 Hypogonadism in male E29.1 Generalized anxiety disorder F41.1 Fatty liver K76.0 Assessment & Plan Assessment & Plan (1) Annual physical exam: Code(s): Z00.00 - Encounter for general adult medical examination without abnormal findings Category: Medical Plan: Patient is advised to eat healthy, keep well hydrated, keep active and have adequate sleep. (2) Morbid (severe) obesity due to excess calories: Code(s): E66.01 - Morbid (severe) obesity due to excess calories Category: Medical Plan: Diet and exercise (3) Type 2 diabetes mellitus with hyperglycemia: Code(s): E11.65 - Type 2 diabetes mellitus with hyperglycemia Category: Medical Plan: Decrease the amount of carbohydrate intake, pasta, bread, rice and potatoes are all sugar and that is aside from all the sweet stuff, remember that fruits are good but they are Sweet also. Hemoglobin A1c goal of less than 6.5 patient on Trulicity glipizide metformin (4) Hypercholesterolemia: Code(s): E78.00 - Pure hypercholesterolemia, unspecified Category: Medical Plan: Avoid fried foods, chicken skin, eggs, butter margarine, pastries and meat. Be it pork or beef they have a lot of cholesterol patient declined cholesterol medication LDL goal of less than 100 and triglyceride of less than 150 January last blood work (5) GERD (gastroesophageal reflux disease): Code(s): K21.9 - Gastro-esophageal reflux disease without esophagitis Category: Medical Qualifiers: Esophagitis bleeding: without hemorrhage Esophagitis presence: with esophagitis Qualified Code(s): K21.00 - Gastro-esophageal reflux disease with esophagitis, without bleeding Plan: Avoid the foods that causes that usually spicy foods, tomato products, juices, coffee, soda and foods that your sensitive to. After eating do not lie down, allow 3-4 hours before in lie down. And keep the head of bed above 30 degrees to avoid the acid from going up. (6) Asthma: Comment: PFT December 2021 Code(s): J45.909 - Unspecified asthma, uncomplicated Category: Medical Plan: Continue with albuterol as needed (7) Hypertension: Code(s): I10 - Essential (primary) hypertension Category: Medical Plan: Continue with blood pressure medication. Decrease salt intake and exercise on lisinopril 10 mg once a day (8) Hypogonadism in male: Code(s): E29.1 - Testicular hypofunction Category: Medical Plan: Patient follows up with urology and receives Depo testosterone (9) Generalized anxiety disorder: Comment: Dr. Willoughby Code(s): F41.1 - Generalized anxiety disorder Category: Medical Plan: Continue with present medication (10) Fatty liver: Code(s): K76.0 - Fatty (change of) liver, not elsewhere classified Category: Medical Plan: Low-fat diet and exercise Plan History of Present Illness Health Maintenance Social History - Patient reports gainful employment contributing to an inactive lifestyle - Recent weight gain attributed to lack of exercise and dietary habits - Family history of cardiac events and cancer raises concern for preventative care - Occasionally consumes alcohol, approximately one beer monthly - Former tobacco user; currently denies use - Occasional use of marijuana edibles, denies use of recreational drugs Review of Systems - Constitutional: Reports weight gain - Respiratory: Denies use of albuterol regularly, reports morning mucus - Cardiovascular: Denies recent chest pain - Gastrointestinal: Reports weight gain and nocturnal incontinence - Genitourinary: Reports nocturia, denies pain or difficulty urinating - Musculoskeletal: Denies current exercise habits, reports laziness - Psychiatric: Reports anxiety, managed with medication; denies new diagnoses Physical Exam General: Cooperative, healthy appearing, comfortable, no acute distress and well developed Orientation: Patient oriented x3 Limitations: No limitations Head: Normal to inspection Ears: Hearing grossly normal bilaterally Nose: Normal external nose present Face and sinus: Normal facial exam Eyes: Appearance normal, both eyes and all related structures Neck: Normal visual inspection and Yes full ROM Respiratory: Normal respiratory effort and able to speak in complete sentences. Clear to auscultation bilaterally Cardiovascular: Regular rate and rhythm. Normal S1 and S2 GI: Normal to inspection. Soft to palpation and nontender Skin: No rashes or lesions noted Neuro: Patient oriented x3 Extremities: Normal to inspection Results Plan Patient was informed and verbally consented to the use of an ambient scribe for clinic note documentation during this visit. Discussion Notes I explained the risks, benefits, and alternatives regarding the management of diabetes mellitus, specifically addressing the necessity of maintaining blood glucose control and advocating for insulin use due to the elevated hemoglobin A1c. The patient is counseled about his concerns over GLP-1 receptor agonists and the potential benefits outweighing these concerns. I discussed ongoing hypertension management and emphasized the value of regular home blood pressure monitoring. For cholesterol management, lifestyle changes are underscored in lieu of medication adherence. The patient was assured about past prostate health concerns and encourages consistent follow-up; we reviewed the pertinence of pneumococcal vaccination amidst prior pneumonia history. Future colonoscopy timing, BRCA-family history navigation, and overall lifestyle intervention strategies related to exercise, diet, and weight management were comprehensively considered, ensuring patient understanding and agreement with the discussed healthcare plan. We agreed upon follow-up appointments to continuously evaluate the patient?s progress. Patient Instructions - Continue taking your diabetes medications as prescribed. Try to be consistent. - Work on a plan to incorporate regular exercise into your routine, even small changes help. - Monitor your blood pressure at home and record your readings. - Continue using pantoprazole as prescribed and track any GERD symptoms. - Schedule your colonoscopy per the advised timeline. - Seek genetic counseling for BRCA concerns. - Get your pneumonia shot during the next visit. - Maintain a low-fat diet and try to avoid gaining more weight. - Avoid smoking and limit alcohol intake to occasional, follow-up accordingly. - Come back for a follow-up as scheduled to monitor your health and discuss further options. Orders: Orders 2 AMB Hemoglobin A1c Today Z13.9 - Encounter for screening, unspecified Pneumococcal 20 Immunization Today Z23 - Encounter for immunization Medications: New 2 blood-glucose,roller inspector,cont (FreeStyle [place] 3 [place]) As directed 1 ea 0RF E11.65 - Type 2 diabetes mellitus with hyperglycemia blood-glucose sensor (FreeStyle Marysol 3 Sensor device) As directed 6 ea 3RF E11.65 - Type 2 diabetes mellitus with hyperglycemia
[2024-08-15 15:33] VITALS: BP 132/90
--- OUTSIDE RECORDS SUMMARY | 2024-08-15 17:52 | XMS_ITS | Continuity of Care Document ---
Author Organization [facility] Address [address] [place] [address] Phone [phone] Social History Type Date Description Comments Sex Unknown Medical Devices Description No Information Available Encounters Description No Information Available Assessments Description No Information Available Plan of Treatment No Information Available Functional Status Description No Information Available Mental Status Description No Information Available Referrals Description No Information Available
--- OUTSIDE RECORDS SUMMARY | 2024-08-15 17:52 | XMS_ITS | Clinical Summary ---
Author Organization [facility] Address [address] [place] [address] Care Team Providers Care Shear Helper Name Role Phone Unavailable Primary Care Provider Unavailabl e Social History Tobacco Use Types Packs/Day Years Used Date Smoking Tobacco: Never Assessed Sex and Gender Information Value Date Recorded Sex Assigned at Not on file Legal Sex Male 1:35 PM EDT Gender Identity Not on file Sexual Orientation Not on file Plan of Treatment Health Maintenance Due Date Last Done Comments DTaP,Tdap,and Td Vaccines (1 - Tdap) 09/25/1994 Hepatitis B Vaccines (1 of 3 - 19+ 3-dose series) 09/25/1994 Cholesterol Screening (Lipid Panel) 11/22/2023 Colorectal Cancer Screening: Colonoscopy 11/22/2023 Depression Screening 11/22/2023 HIV Screening 11/22/2023 Hepatitis C Screening 11/22/2023 Social Influencers of Health Screening 11/22/2023 COVID-19 Vaccine (2023-2 5 season) 2023 Influenza Vaccine (Season Ended) 2024 HIB Vaccines Aged Out No longer eligi ble based on patient's age to complete this topic HPV Vaccines Aged Out No longer eligi ble based on patient's age to complete this topic Hepatitis A Vaccines Aged Out No long er eligible based on patient's age to complete this topic IPV Vaccines Aged Out No longer eligi ble based on patient's age to complete this topic MMR Vaccines Aged Out No longer eligi ble based on patient's age to complete this topic Meningococcal ACWY Vaccine Aged Out N o longer eligible based on patient's age to complete this topic Meningococcal B Vaccine Aged Out No l onger eligible based on patient's age to complete this topic Pneumococcal Vaccine: Pediat rics (0 to 5 Years) and At-Risk Patients (6 to 64 Years) Aged Out No longer eligible b ased on patient's age to complete this topic RSV Immunization Patients Un binh 20 months Aged Out No longer eligible b ased on patient's age to complete this topic Varicella Vaccines Aged Out No longer eligible based on patient's age to complete this topic
== END 2024-08-15 16:09 | disposition home or self-care (01) ==
LOC: HO.HMCH 15:07
PROVIDERS: PCP Internal Medicine; Visit Provider Internal Medicine
DX: Z00.00 Encounter for general adult medical examination without abnormal findings (principal); E66.01 Morbid (severe) obesity due to excess calories; E11.65 Type 2 diabetes mellitus with hyperglycemia; Z68.42 Body mass index [BMI] 45.0-49.9, adult; E78.00 Pure hypercholesterolemia, unspecified; K21.00 Gastro-esophageal reflux disease with esophagitis, without bleeding; J45.909 Unspecified asthma, uncomplicated; I10 Essential (primary) hypertension; E29.1 Testicular hypofunction; F41.1 Generalized anxiety disorder; K76.0 Fatty (change of) liver, not elsewhere classified; Z23 Encounter for immunization

== ENCOUNTER → 2024-08-15 15:06 | Outpatient (BNVA) | payer OTHER, SELFPAY | PROVIDERS: PCP Internal Medicine; Visit Provider Internal Medicine | DX: Z00.00 Encounter for general adult medical examination without abnormal findings (principal); Z23 Encounter for immunization; E66.01 Morbid (severe) obesity due to excess calories; Z68.42 Body mass index [BMI] 45.0-49.9, adult; E11.65 Type 2 diabetes mellitus with hyperglycemia; E78.00 Pure hypercholesterolemia, unspecified; K21.00 Gastro-esophageal reflux disease with esophagitis, without bleeding; J45.909 Unspecified asthma, uncomplicated; I10 Essential (primary) hypertension; E29.1 Testicular hypofunction; F41.1 Generalized anxiety disorder; K76.0 Fatty (change of) liver, not elsewhere classified | CPT/HCPCS: 83036; 90471; 90677; 99396 ==

== ENCOUNTER 2024-09-11 15:28 | Outpatient (AMB) | payer OTHER, SELFPAY ==
--- OUTSIDE RECORDS SUMMARY | 2024-09-11 15:31 | XMS_ITS | Continuity of Care Document ---
Author Organization [facility] Address [address] [place] [address] Phone [phone] Social History Type Date Description Comments Sex Unknown Medical Devices Description No Information Available Encounters Description No Information Available Assessments Description No Information Available Plan of Treatment No Information Available Functional Status Description No Information Available Mental Status Description No Information Available Referrals Description No Information Available
--- OUTSIDE RECORDS SUMMARY | 2024-09-11 15:31 | XMS_ITS | Clinical Summary ---
Author Organization [facility] Address [address] [place] [address] Care Team Providers Care Tab Card Press Operator Name Role Phone Unavailable Primary Care Provider [...]
--- NOTE | 2024-09-11 15:40 | MHC.OFFVIS ---
Intake Visit Reasons: 6m/labs Intake Note: Patient is present for 6M/LABS Urology Medication:TESTOSTERONE,TADALAFIL Antibiotic Allergy:PENICILLINS Blood Thinner:NONE Internal Combustion Engineer Required: No Allergies Iodinated Contrast Media Allergy (Mild, Verified 09/11/24 15:43) Abdominal Pain Penicillins Allergy (Mild, Verified 09/11/24 15:43) Hives HPI Comments Details: Jaspreet is a pleasant male. He is a patient of Dr. Lunsford. He is seen for the following urologic conditions - erectile dysfunction with type 2 diabetes - lower urinary tract symptoms - hypogonadism Review current labs - remain low High-dose daily tadalafil with on demand appears to be effective 10 mg daily, up to 40 mg on demand Injection Day: Monday Lab Day: Mon Hypogonadism Intermittent treatment for many years Had used large doses of steroids in and Insurance issues related to topical therapy Prescription for injectable provided Erectile dysfunction with type 2 diabetes Progressive Able to obtain but cannot maintain erection Comorbid diagnoses include diabetes Therapy - daily tadalaifl Investigations - 12/20 T 230 F 65, 10/21 T 127 Free 38, 01/21 T 242 H 52.8, 02/21 332 F 76 Hct 46, 08/23 T255 Lower urinary tract symptoms Mild nocturia Mild urgency frequency PFSH Medical History Esophagitis Gastritis Asthma Back pain Chest pain Fall Chest wall pain Shortness of breath on exertion LFTs abnormal TSH elevation Poorly controlled type 2 diabetes mellitus Abscess Cholelithiasis Colon cancer screening Umbilical hernia Hypogonadism in male Obesity Hypertension GERD (gastroesophageal reflux disease) Surgical History History of esophagogastroduodenoscopy (EGD) Hx of colonoscopy Laryngeal polyp Hx of LASIK History of appendectomy Family History Father Heart attack Mother No problems noted. Sister No problems noted. Daughter No problems noted. Maternal Grandmother Ovarian cancer Paternal Grandfather Heart attack Paternal Uncle Alcohol abuse Other Mental health disorder Substance use disorder Social History (Updated 08/15/24 @ 15:39 by Marilee Lunsford MD) Housing: House Alcohol intake: former Year quit: 2013 Comment: once a month 1 bottle Patient Tobacco Use Status: Former Tobacco user Tobacco use type: Cigarette Years Smoked: 25+/- 2017 e-Cigarette/Vaping Use: Never Used Second Hand Smoke Exposure: No service: No Current occupational status: employed Cognitive needs: No Hearing needs: No Vision needs: Yes Review of Systems Const Denies chills and Denies fever(s) Card Reports no additional complaints and Denies syncope Resp Denies cough GI Denies abdominal pain and Denies heartburn Reports as per HPI and Denies change in libido Neuro Denies syncope Psych Denies change in libido Endo Denies change in libido Physical Exam Const General: cooperative, healthy appearing, comfortable and no acute distress Orientation/consciousness: patient oriented x3 HEENT Face and sinus: Yes normal facial exam Mouth: moist mucous membranes Neck Neck: Yes normal visual inspection, Yes full ROM and Yes trachea midline Chest Chest palpation & inspection: normal inspection of the chest Resp Effort & Inspection: normal respiratory effort, able to speak in complete sentences and no respiratory distress GI Inspection: Yes normal to inspection Back/Spine/Pelvis Cervical Spine: normal cervical lordosis Thoracic/Lumbar Spine: thoracic and lumbar spine normal to inspection Skin General skin exam: no rashes or lesions noted Neuro General: patient oriented x3, gait normal, tone normal and moves all extremities Extrem General: Yes normal to inspection and Yes capillary refill normal Assessment & Plan Assessment & Plan (1) Erectile dysfunction associated with type 2 diabetes mellitus: Code(s): E11.69 - Type 2 diabetes mellitus with other specified complication; N52.1 - Erectile dysfunction due to diseases classified elsewhere Category: Medical (2) Hypogonadism in male: Code(s): E29.1 - Testicular hypofunction Category: Medical Plan Increased dose 100 mg 2 month follow up Orders: Orders Testosterone, Free/Total 6 Weeks E29.1 - Testicular hypofunction Medications: New syringe (disposable) (BD Luer-Savi Syringe) Testosterone injection weekly 30 ea 0RF E34.9 - Endocrine disorder, unspecified needle (disp) 18 G (BD Regular [place]) As directed - draw up testosterone 30 ea 0RF E29.1 - Testicular hypofunction Changed From testosterone cypionate (Depo-Testosterone) 80 mg (0.4 mL) subcut QWEEK 4 weeks 2 mL 0RF E29.1 - Testicular hypofunction, [id number] To testosterone cypionate (Depo-Testosterone) 100 mg (0.5 mL) subcut QWEEK 4 weeks 2 mL 1RF E29.1 - Testicular hypofunction, [id number] Refilled tadalafil 10 mg PO DAILY 90 days 90 tabs 1RF sexual activity E11.69 - Type 2 diabetes mellitus with other specified complication, N52.1 - Erectile dysfunction due to diseases classified elsewhere Discontinued needle (disp) 22 G Discontinued Reason: Patient Completed Course To inject Testosterone 30 ea 0RF E29.1 - Testicular hypofunction, E34.9 - Endocrine disorder, unspecified needle (disp) 18 G (BD Regular [place]vel [place]) Discontinued Reason: Patient Completed Course To draw up medication 50 ea 0RF E29.1 - Testicular hypofunction syringe (disposable) (BD Luer-Savi Syringe) Discontinued Reason: Patient Completed Course Testosterone injection weekly 50 ea 0RF E29.1 - Testicular hypofunction, E34.9 - Endocrine disorder, unspecified Patient Instructions: This note is constructed using voice recognition software. While every effort has been made to ensure accuracy warehouse general laborer errors may have been included. Imaging studies, laboratory and physical exam results were discussed and reviewed in detail. No major barriers to patient understanding were identified. An opportunity to ask questions regarding the treatment plan was provided. All questions were answered. The patient expressed understanding and agreement with the above treatment plan. The patient is aware they should contact our office by phone for worsening of their current condition or the appearance of new urologic symptoms. Compliance is encouraged with any medications and followup testing that is ordered. It is a privilege to participate in the urologic care of your patient. If you have any questions or concerns regarding treatment for the above conditions, or other urologic issues, please do not hesitate to contact me. The office telephone contact is [phone]. Sincerely, Dr Sandip Becker MD, [facility] - Urology Compassionate Specialist Care for the Genitourinary System Coding Level of Care Code Est Pt Level 4 (73451) Diagnoses Erectile dysfunction associated with type 2 diabetes mellitus E11.69; N52.1 Hypogonadism in male E29.1
== END 2024-09-11 16:42 | disposition home or self-care (01) ==
LOC: HO.HUSH 15:29
PROVIDERS: PCP Internal Medicine; Visit Provider Urology
DX: E11.69 Type 2 diabetes mellitus with other specified complication (principal); N52.1 Erectile dysfunction due to diseases classified elsewhere; E29.1 Testicular hypofunction
CPT/HCPCS: 99214

== ENCOUNTER → 2024-09-11 15:28 | Outpatient (BNVA) | payer OTHER, SELFPAY | PROVIDERS: PCP Internal Medicine; Visit Provider Urology | DX: E11.69 Type 2 diabetes mellitus with other specified complication (principal); N52.1 Erectile dysfunction due to diseases classified elsewhere; E29.1 Testicular hypofunction; E34.9 Endocrine disorder, unspecified | CPT/HCPCS: 99212 ==

== ENCOUNTER 2024-11-13 16:25 | Outpatient (AMB) | payer OTHER, SELFPAY ==
--- OUTSIDE RECORDS SUMMARY | 2024-11-13 16:27 | XMS_ITS | Clinical Summary ---
Author Organization [facility] Address [address] [place] [address] Care Team Providers Care Check Viewer Name Role Phone Unavailable Primary Care Provider [...] Vaccine (2023-2 5 season) 2023 Influenza Vaccine (#1) 2024 HIB Vaccines Aged Out No longer [...] 5 Years) and At-Risk Patients (6 to 49 Years) Aged Out No longer eligible b ased on patient's age to complete this topic RSV Immunization Patients Un binh 20 months Aged Out No longer eligible b ased on patient's age to complete this topic Varicella Vaccines Aged Out No longer eligible based on patient's age to complete this topic
--- OUTSIDE RECORDS SUMMARY | 2024-11-13 16:28 | XMS_ITS | Continuity of Care Document ---
Author Organization [facility] Address [address] [place] [address] Phone [phone] Social History Type Date Description Comments Sex Male Sex Unknown Medical Devices Description No Information Available Encounters Description No Information Available Assessments Description No Information Available Plan of Treatment No Information Available Functional Status Description No Information Available Mental Status Description No Information Available Referrals Description No Information Available
[2024-11-13 16:29] VITALS: BP 155/89; PULSE 112; O2SAT 90; BMI 44.9
--- NOTE | 2024-11-13 16:29 | MHC.OFFVIS ---
Vital Signs 11/13/24 16:29 Height 5 ft 11 in Weight 322 lb BMI 44.9 BP 155/89 H Blood Pressure Location Lt brachial Position Sitting Pulse 112 H Pulse Oximetry (%) 90 L Oxygen Delivery Method Room Air Intake Visit Reasons: 6 mo f/u GERD, constipation discuss colonoscopy Intake Note: Patient 6 month follow up for GERD, Constipation and discuss Colonoscopy screening. Patient cc: constipation on and off, SOB and oxygen was 88 and I said to patient to getcouples of big breath in and then the went to 90. Denies any other GI issues. Visualizer Required: No Accompanied by: Self / Same As Patient Allergies Iodinated Contrast Media Allergy (Mild, Verified 11/13/24 16:28) Abdominal Pain Penicillins Allergy (Mild, Verified 11/13/24 16:28) Hives HPI HPI 6 mo f/u GERD, constipation discuss colonoscopy: Details: LAST VISIT: GERD (gastroesophageal reflux disease) Fatty liver Constipation IBS (irritable bowel syndrome) Plan Stressed the importance of eating low-fat, low-salt, low carb and high-protein diet. Patient's blood sugars have not been controlled. Last A1c 9.1%. Continue taking pantoprazole 20 mg. Avoid dietary triggers and late night snacking. Staying upright for minimum 3 hours after meals discussed with patient. Patient will continue taking senna daily. Increase fluid intake and activity to promote better bowel motility. Weight loss encouraged. Patient will return in 6 months, he will call us if he will have any GI concerning symptoms. Patient will be due to go for colonoscopy then will discuss prep and assess for the need to go for upper endoscopy. Patient is agreeable to this plan and verbalizes understanding of instructions. She was given the opportunity to ask questions and all questions answered. ? Thank you for allowing me to participate in his care Refilled sennosides (senna) 17.2 mg (2 x 8.6 mg) PO BEDTIME 180 tabs 3RF for constipation K59.00 TODAY'S VISIT Patient is here today for follow-up and to discuss going for colonoscopy. Patient oxygen level was 86% on RA and after taking few deep breaths went up to 90%. Patient reports that he has been having trouble breathing. History of sleep apnea and unable to uses CPAP. Patient lost few lb but not much. Not trying to lose weight. Patient eats large meals. His A1c was 10.3% in July. Patient was started on Trulicity, however he is not taking it. Patient is scared to started. Patient denies melena, hematochezia, unintentional weight loss or ribbon like stools. Denies dyspepsia, dysphagia or odynophagia. Reports that pantoprazole has been working for him. Takes senna in the evening unless he falls asleep and forgets to take it. When he takes senna states that he is able to move his bowels well. [facility] Medical History Esophagitis Gastritis Asthma Back pain Chest pain Fall Chest wall pain Shortness of breath on exertion LFTs abnormal TSH elevation Poorly controlled type 2 diabetes mellitus Abscess Cholelithiasis Colon cancer screening Umbilical hernia Hypogonadism in male Obesity Hypertension GERD (gastroesophageal reflux disease) Surgical History History of esophagogastroduodenoscopy (EGD) Hx of colonoscopy Laryngeal polyp Hx of LASIK History of appendectomy Family History Father Heart attack Mother No problems noted. Sister No problems noted. Daughter No problems noted. Maternal Grandmother Ovarian cancer Paternal Grandfather Heart attack Paternal Uncle Alcohol abuse Other Mental health disorder Substance use disorder Social History Housing: House Alcohol intake: former Year quit: 2013 Comment: once a month 1 bottle Patient Tobacco Use Status: Former Tobacco user Tobacco use type: Cigarette Years Smoked: /- 2016 e-Cigarette/Vaping Use: Never Used Second Hand Smoke Exposure: No service: No Current occupational status: employed Cognitive needs: No Hearing needs: No Vision needs: Yes Review of Systems Const Denies weight gain and Denies weight loss ENT Reports no additional complaints, Denies dysphagia and Denies odynophagia Card Reports no additional complaints Resp Reports no additional complaints GI Denies abdominal pain, Denies belching, Denies melena, Denies bloating, Denies change in bowel habits, Reports constipation, Denies dysphagia, Denies excessive flatus, Denies dyspepsia, Denies heartburn, Denies diarrhea, Denies loose stools, Denies nausea, Denies odynophagia and Denies vomiting Reports no additional complaints Musc Reports no additional complaints Neuro Reports no additional complaints Psych Reports no additional complaints Endo Reports no additional complaints Physical Exam Const General: healthy appearing and no acute distress Nutritional Appearance: obese Orientation/consciousness: patient oriented x3 Resp Effort & Inspection: normal respiratory effort, able to speak in complete sentences, no tracheal deviation and symmetric chest movement Auscultation: clear to auscultation bilaterally Cardio Rate: regular rate GI Inspection: Yes normal to inspection, No distended and Yes obesity Palpation (GI): Soft to palpation, not firm, nontender and No hepatosplenomegaly present Auscultation: normal bowel sounds General: Yes no CVA tenderness Back/Spine/Pelvis Back: no CVA tenderness Skin General skin exam: elasticity normal, turgor normal and dry skin Neuro General: patient oriented x3 Psych Appearance: grossly normal Mental Status: mental status grossly normal Assessment & Plan Assessment & Plan (1) GERD (gastroesophageal reflux disease): Code(s): K21.9 - Gastro-esophageal reflux disease without esophagitis Category: Medical Qualifiers: Esophagitis presence: with esophagitis Esophagitis bleeding: without hemorrhage Qualified Code(s): K21.00 - Gastro-esophageal reflux disease with esophagitis, without bleeding (2) Fatty liver: Code(s): K76.0 - Fatty (change of) liver, not elsewhere classified Category: Medical (3) Constipation: Code(s): K59.00 - Constipation, unspecified Qualifiers: Constipation type: slow transit constipation Qualified Code(s): K59.01 - Slow transit constipation Plan Patient will continue taking pantoprazole in the morning. Avoid dietary triggers and late night snacking, staying upright for minimal 3 hours a after meals discussed with patient. Patient will continue taking senna. Discussed with patient the seriousness of his overweight and the need for him to lose weight. Referral to pulmonology, unsure if asthma is were control his O2 sat is low, however patient is not having any wheezing. Instructed to go to ED if his shortness of breath will increase. Referral to Cardiology as well before sending him for colonoscopy. Patient had normal stress test 3 years ago. Shortness of breath is increasing and he is not using CPAP for sleep apnea. Endocrinology referral for uncontrollable blood sugar and high A1c. Currently he is not taking Trulicity. Patient will follow-up in 3 months and we will discuss going for colonoscopy then. Hopefully he will be able to be cleared before going for procedure. He is agreeable to current plan of care and verbalizes understanding of instructions. He was given the opportunity to ask questions and all questions answered. Thank you for allowing me to participate in his care Orders: Referrals Endocrinology Referral E11.9 - Type 2 diabetes mellitus without complications Cardiology Referral Z01.810 - Encounter for preprocedural cardiovascular examination Pulmonology Referral J45.909 - Unspecified asthma, uncomplicated, R79.81 - Abnormal blood-gas level Medications: Refilled sennosides (senna) 17.2 mg (2 x 8.6 mg) PO BEDTIME 180 tabs 3RF for constipation K59.00 - Constipation, unspecified pantoprazole 20 mg PO DAILY 90 tabs 3RF Coding Level of Care Code Est Pt Level 4 (26809) Complex EM visit Add On G2211 Diagnoses Gastroesophageal reflux disease with esophagitis without hemorrhage K21.00 Esophagitis presence: with esophagitis Esophagitis bleeding: without hemorrhage Fatty liver K76.0 Slow transit constipation K59.01 Constipation type: slow transit constipation Time Spent (min) 35 Comment 25 minute spent with patient and additional 10 minutes spent reviewing his records
== END 2024-11-13 18:46 | disposition home or self-care (01) ==
LOC: HO.HGI 16:26
PROVIDERS: PCP Internal Medicine; Visit Provider Nurse Practitioner Family
DX: K21.00 Gastro-esophageal reflux disease with esophagitis, without bleeding (principal); K76.0 Fatty (change of) liver, not elsewhere classified; K59.01 Slow transit constipation
CPT/HCPCS: 99214; G2211

== ENCOUNTER → 2024-11-13 16:25 | Outpatient (BNVA) | payer OTHER, SELFPAY | PROVIDERS: PCP Internal Medicine; Visit Provider Nurse Practitioner Family | DX: K21.00 Gastro-esophageal reflux disease with esophagitis, without bleeding (principal); K59.01 Slow transit constipation; K76.0 Fatty (change of) liver, not elsewhere classified | CPT/HCPCS: 99212 ==

== ENCOUNTER 2024-11-27 15:19 | Outpatient (AMB) | payer OTHER, SELFPAY ==
--- NOTE | 2024-11-27 15:20 | A.OFFVIS_ITS ---
Intake Visit Reasons: 2m /Testo(testo?) Intake Note: Patient is present for 2M/LABS Urology Medication:TESTOSTERONE,TADALAFIL Antibiotic Allergy:PENICILLINS Blood Thinner:NONE Labs done 11/16/2024: Fr testosterone : 8.2 Total testosterone :296 Fiberglass Boat Maker Required: No Accompanied by: Self / Same As Patient Allergies Iodinated Contrast Media Allergy (Mild, Verified 11/27/24 15:21) Abdominal Pain Penicillins Allergy (Mild, Verified 11/27/24 15:21) Hives HPI Comments Details: Jaspreet is a pleasant male. He is a patient of Dr. Lunsford. He is seen for the following urologic conditions - erectile dysfunction with type 2 diabetes - lower urinary tract symptoms - hypogonadism Telemedicine Evaluation 15 min Consultation [employer] Raphael Video Review current labs - remain low Increased testosterone dose to 60 units, 120 mg Repeat lab work in 6 weeks High-dose daily tadalafil with on demand appears to be effective 10 mg daily, up to 40 mg on demand Injection Day: Monday Lab Day: Mon Hypogonadism Intermittent treatment for many years Had used large doses of steroids in and Insurance issues related to topical therapy Prescription for injectable provided - initial dosing 100 mg subQ weekly Erectile dysfunction with type 2 diabetes Progressive Able to obtain but cannot maintain erection Comorbid diagnoses include diabetes Therapy - daily tadalaifl Investigations - 12/20 T 230 F 65, 10/21 T 127 Free 38, 01/21 T 242 H 52.8, 02/21 332 F 76 Hct 46, 08/23 T255, 11/22 300 8.2 Lower urinary tract symptoms Mild nocturia Mild urgency frequency PFSH Medical History Esophagitis Gastritis Asthma Back pain Chest pain Fall Chest wall pain Shortness of breath on exertion LFTs abnormal TSH elevation Poorly controlled type 2 diabetes mellitus Abscess Cholelithiasis Colon cancer screening Umbilical hernia Hypogonadism in male Obesity Hypertension GERD (gastroesophageal reflux disease) Surgical History History of esophagogastroduodenoscopy (EGD) Hx of colonoscopy Laryngeal polyp Hx of LASIK History of appendectomy Family History Father Heart attack Mother No problems noted. Sister No problems noted. Daughter No problems noted. Maternal Grandmother Ovarian cancer Paternal Grandfather Heart attack Paternal Uncle Alcohol abuse Other Mental health disorder Substance use disorder Social History Housing: House Alcohol intake: former Year quit: 2013 Comment: once a month 1 bottle Patient Tobacco Use Status: Former Tobacco user Tobacco use type: Cigarette Years Smoked: +/- 2016 e-Cigarette/Vaping Use: Never Used Second Hand Smoke Exposure: No service: No Current occupational status: employed Cognitive needs: No Hearing needs: No Vision needs: Yes Review of Systems Const All systems reviewed & are unremarkable except as noted in HPI and below Reports no additional complaints Resp Reports no additional complaints GI Reports no additional complaints Reports as per HPI Musc Reports no additional complaints Physical Exam Telemedicine evaluation Appropriate responses Regular breathing rate and rhythm HEENT Head: Yes normal to inspection Ears: hearing grossly normal bilaterally Eyes General: appearance normal, both eyes and all related structures Neck Neck: Yes normal visual inspection Chest Chest palpation & inspection: normal inspection of the chest Resp Effort & Inspection: normal respiratory effort and able to speak in complete sentences Telehealth Telehealth Telehealth Platform: [employer] Location of provider rendering services: practice address Location of patient: address on file Patient Identification confirmed using: Name, : Yes Telehealth method: video Patient verbally consented to treatment: Yes Patient verbally consented to billing insurance company: Yes Patient informed of any privacy concerns related to visit: Yes Assessment & Plan Assessment & Plan (1) Erectile dysfunction associated with type 2 diabetes mellitus: Code(s): E11.69 - Type 2 diabetes mellitus with other specified complication; N52.1 - Erectile dysfunction due to diseases classified elsewhere Category: Medical (2) Hypogonadism in male: Code(s): E29.1 - Testicular hypofunction Category: Medical Plan 2 month follow-up Adjust dosing Orders: Orders Testosterone, Free/Total 6 Weeks E29.1 - Testicular hypofunction Medications: Changed From testosterone cypionate (Depo-Testosterone) 100 mg (0.5 mL) subcut QWEEK 4 weeks 2 mL 1RF E29.1 - Testicular hypofunction, [id number] To testosterone cypionate (Depo-Testosterone) 120 mg (0.6 mL) subcut QWEEK 4 mL 1RF 4 weeks E29.1 - Testicular hypofunction, [id number] Patient Instructions: This note is constructed using voice recognition software. While every effort has been made to ensure accuracy assistant food service director errors may have been included. Imaging studies, laboratory and physical exam results were discussed and reviewed in detail. No major barriers to patient understanding were identified. An opportunity to ask questions regarding the treatment plan was provided. All questions were answered. The patient expressed understanding and agreement with the above treatment plan. The patient is aware they should contact our office by phone for worsening of their current condition or the appearance of new urologic symptoms. Compliance is encouraged with any medications and followup testing that is ordered. It is a privilege to participate in the urologic care of your patient. If you have any questions or concerns regarding treatment for the above conditions, or other urologic issues, please do not hesitate to contact me. The office telephone contact is [phone]. Sincerely, Dr Sandip Becker MD, [facility] - Urology Compassionate Specialist Care for the Genitourinary System Coding Level of Care Code Tele Est Pt Level 3 (34249) Complex EM visit Add On G2211 Diagnoses Erectile dysfunction associated with type 2 diabetes mellitus E11.69; N52.1 Hypogonadism in male E29.1
--- OUTSIDE RECORDS SUMMARY | 2024-11-27 16:01 | XMS_ITS | Clinical Summary ---
[facility] Organization [facility] Address [address] [place] [address] Care Team Providers Care Marble Cutter Name Role Phone Unavailable Primary Care Provider [...] Panel) 11/22/2023 Colorectal Cancer Screening: Colonoscopy 11/22/2023 HIV Screening 11/22/2023 Hepatitis C Screening 11/22/2023 Social Influencers of Health Screening 11/22/2023 COVID-19 Vaccine ( - 2023-2 5 season) 2023 Depression Screening 05/01/2024 Influenza Vaccine (#1) 2024 HIB Vaccines Aged [...]
--- OUTSIDE RECORDS SUMMARY | 2024-11-27 16:01 | XMS_ITS | Continuity of Care Document ---
Author Organization [facility] Address [address] [place] [address] Phone [phone] Social History Type Date Description Comments Sex Male Sex Unknown Medical Devices Description No Information Available Encounters Description No Information Available Assessments Description No Information Available Plan of Treatment No Information Available Functional Status Description No Information Available Mental Status Description No Information Available Referrals Description No Information Available
== END 2024-11-27 16:30 ==
LOC: HO.HUSH 15:19
PROVIDERS: PCP Internal Medicine; Visit Provider Urology
DX: E11.69 Type 2 diabetes mellitus with other specified complication (principal); N52.1 Erectile dysfunction due to diseases classified elsewhere; E29.1 Testicular hypofunction
CPT/HCPCS: 99213; G2211

== ENCOUNTER 2024-12-20 14:06 | Outpatient (REF) | payer OTHER, SELFPAY ==
--- NOTE | ~2024-12-20 | XR_ITS ---
EXAMINATION: XR CHEST CLINICAL INFORMATION: R22.43 - Localized swelling, mass and lump, lower limb, bilateral COMPARISON: June 03, 2024 TECHNIQUE: 2 views of the chest were obtained. FINDINGS: Pulmonary reticular pattern. No hyperinflation. No consolidation, pleural effusion or pneumothorax. Cardiomediastinal silhouette size is normal. Multilevel thoracolumbar spondylosis. Osteopenia versus osteoporosis. XR/XR chest 2V IMPRESSION: Chronic interstitial lung disease. Superimposed acute inflammatory or infectious process cannot be excluded. Multilevel spondylosis. Electronically signed by: Gerard Quinones MD 12/20/2024 03:48 PM EDT
[2024-12-20 15:25] LABS: MANUAL DIFF FLAG NO
[2024-12-20 15:36] LABS: Hemoglobin 18.3 g/dl (14.0-18.0); Imm Gran Abs Auto 0.05 X10*3/uL (0.00-0.03); Imm Gran Pct Auto 0.8 % (0.0-0.4); Lymphocytes Absolute Auto 1.2 X10*3/uL (1.2-4.9); Mean Corpuscular HGB Conc 30.7 g/dl (31.0-36.0); Mean Corpuscular Hemoglobin 25.3 pg (27.0-33.0); Mean Corpuscular Volume 82.7 fL (80.0-98.0); NRBC Abs Auto 0.000 X10*3/uL (0.0-0.012); NRBC Pct Auto 0.0 /100WBC (0.0-0.2); Platelet Count 178 X10*3/uL (160-400); Red Blood Count 7.22 X10*6/uL (4.60-5.80); White Blood Count 6.7 X10*3/uL (4.8-10.8)
[2024-12-20 15:37] LABS: Hematocrit 59.7 % (42.0-52.0)
[2024-12-20 16:42] LABS: Anion Gap 15 (12-20); Blood Urea Nitrogen 18 mg/dL (9-16); Calcium 9.4 mg/dL (8.4-10.2); Carbon Dioxide 29 mmol/L (22-29); Chloride 97 mmol/L (96-108); Estimated Glomerular Filt Rate > 60; Potassium 4.7 mmol/L (3.3-5.1); Sodium 136 mmol/L (135-145)
[2024-12-20 16:47] LABS: B Type Natriuretic Peptide 21 pg/mL (<100)
== END 2024-12-20 14:07 | disposition home or self-care (01) ==
LOC: HO.LAB 14:06
PROVIDERS: PCP Internal Medicine
DX: R22.43 Localized swelling, mass and lump, lower limb, bilateral (principal); R06.09 Other forms of dyspnea; E11.65 Type 2 diabetes mellitus with hyperglycemia; E29.1 Testicular hypofunction; E66.01 Morbid (severe) obesity due to excess calories; Z79.84 Long term (current) use of oral hypoglycemic drugs; Z79.899 Other long term (current) drug therapy; Z68.42 Body mass index [BMI] 45.0-49.9, adult
CPT/HCPCS: 36415; 71046; 80048; 83880; 85025; 99212

== ENCOUNTER 2024-12-20 14:06 | Outpatient (AMB) | payer OTHER, SELFPAY ==
--- OUTSIDE RECORDS SUMMARY | 2024-12-20 14:09 | XMS_ITS | Clinical Summary ---
[facility] Organization [facility] Address [address] [place] [address] Care Team Providers Care Practical Nurse Clinical Coordinator Name Role Phone Unavailable Primary Care Provider [...]
--- OUTSIDE RECORDS SUMMARY | 2024-12-20 14:09 | XMS_ITS | Continuity of Care Document ---
Author Organization [facility] Address [address] [place] [address] Phone [phone] Social History Type Date Description Comments Sex Male Sex Unknown Medical Devices Description No Information Available Encounters Description No Information Available Assessments Description No Information Available Plan of Treatment No Information Available Functional Status Description No Information Available Mental Status Description No Information Available Referrals Description No Information Available
[2024-12-20 14:11] VITALS: BP 140/76; PULSE 99; RESP 18; TEMP 36.4; O2SAT 94; BMI 45.4
--- NOTE | 2024-12-20 14:11 | A.OFFPC_ITS ---
Vital Signs 12/20/24 14:11 Height 5 ft 11 in Weight 325 lb 6 oz BMI 45.4 BP 140/76 H Blood Pressure Location Lt brachial Position Sitting Respiration 18 Pulse 99 Pulse Source Pulse Oximeter Temp 97.5 F Temp Source Temporal Artery Scan Pulse Oximetry (%) 94 Oxygen Delivery Method Room Air Intake Visit Reasons: bilateral leg swelling Power Manager Required: No Accompanied by: Self / Same As Patient Allergies Iodinated Contrast Media Allergy (Mild, Verified 12/20/24 14:33) Abdominal Pain Penicillins Allergy (Mild, Verified 12/20/24 14:33) Hives Medication List - Last Reconciled 12/20/24 by HOMAR Ng albuterol sulfate 90 mcg/actuation (Ventolin HFA) 2 puffs PO Q6H PRN azelastine 2 sprays intranasal BID blood-glucose sensor (Sensing Electromagnetic PlusStyle Mary[place] 3 Sensor device) As directed blood-glucose,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,cont (FreeStyle Marysol 3 [place]) As directed buspirone 40 mg (4 x 10 mg) PO DAILY 30 days clotrimazole 1% topical diazepam 5 mg PO DAILY PRN docusate sodium 100 mg PO BEDTIME dulaglutide (Trulicity) 0.75 mg (0.5 mL) subcut QWEEK lisinopril 10 mg PO DAILY metformin 500 mg PO TIDWMEAL 90 days milk thistle 150 mg PO BID needle (disp) 18 G (BD Regular Bevel [place]) As directed - draw up testosterone pantoprazole 20 mg PO DAILY pen needle, diabetic (BD Ultra-Fine Mini Pen Needle) As directed once a week for ozempic polyethylene glycol 3350 (Gavilax) 17 grams PO DAILY sennosides (senna) 17.2 mg (2 x 8.6 mg) PO BEDTIME syringe (disposable) (BD Luer-Savi Syringe) Testosterone injection weekly tadalafil 10 mg PO DAILY 90 days testosterone cypionate (Depo-Testosterone) 120 mg (0.6 mL) subcut QWEEK 4 weeks Tobacco use date assessed: 12/20/24 Dental Screening Dental Screen Date: 12/20/24 Did you have a dental visit in the last 12 months?: Yes Did you have a dental problem in the last 6 months where you did not have access to dental care?: No Was dental information given to patient?: Patient has dentist HPI bilateral leg swelling HPI Details The patient is a 49-year-old male presenting with concerns of peripheral edema and dyspnea with exertion. He reports bilateral leg swelling, more pronounced in the left foot, which has improved but remains problematic. The patient experiences dyspnea on exertion, particularly when walking short distances or bending over, and has a history of pneumonia six months ago with ongoing respiratory symptoms. He has hypertension, managed with lisinopril, and reports elevated blood pressure during visits. The patient has diabetes mellitus with recent hyperglycemia, managed with metformin and glipizide, but admits to inconsistent medication adherence. He quit smoking eight years ago and leads a sedentary lifestyle with a diet high in restaurant foods. [facility] Medical History Esophagitis Gastritis Asthma Back pain Chest pain Fall Chest wall pain Shortness of breath on exertion LFTs abnormal TSH elevation Poorly controlled type 2 diabetes mellitus Abscess Cholelithiasis Colon cancer screening Umbilical hernia Hypogonadism in male Obesity Hypertension GERD (gastroesophageal reflux disease) Surgical History History of esophagogastroduodenoscopy (EGD) Hx of colonoscopy Laryngeal polyp Hx of LASIK History of appendectomy Family History Father Heart attack Mother No problems noted. Sister No problems noted. Daughter No problems noted. Maternal Grandmother Ovarian cancer Paternal Grandfather Heart attack Paternal Uncle Alcohol abuse Other Mental health disorder Substance use disorder Social History Housing: House Alcohol intake: former Year quit: 2013 Comment: once a month 1 bottle Patient Tobacco Use Status: Former Tobacco user Tobacco use type: Cigarette Years Smoked: +/- 2016 e-Cigarette/Vaping Use: Never Used Second Hand Smoke Exposure: No service: No Current occupational status: employed Cognitive needs: No Hearing needs: No Vision needs: Yes Questionnaire PHQ-9 Over the last 2 weeks, how often have you been bothered by any of the following problems? 1. Little interest or pleasure in doing things: not at all 2. Feeling down, depressed, or hopeless: not at all 3. Trouble falling or staying asleep, or sleeping too much: nearly every day 4. Feeling tired or having little energy: several days 5. Poor appetite or overeating: nearly every day 6. Feeling bad about yourself - or that you are a failure or have let yourself or your family down: not at all 7. Trouble concentrating on things, such as reading the newspaper or watching television: several days 8. Moving or speaking so slowly that other people could have noticed. Or the opposite - being so fidgety or restless that you have been moving around a lot more than usual: more than half the days 9. Thoughts that you would be better off or of hurting yourself in some way: not at all Total score: 10 Source: Developed by Drs. Kervin Santiago, Samira Tinoco, Tucker Lord and colleagues, with an educational sparkle from [employer]. Thrive Questionnaire Date Thrive assessed: 12/20/24 I am a: Patient What is your living situation today?: I have a steady place to live Within the past 12 months, did the food you bought not last and you didn't have the money to get more?: Never true Within the past 12 months, did you worry whether your food would run out before you got money to buy more?: Never true Do you have trouble paying for medicines?: No Do you have trouble getting transportation to medical appointments?: No Do you have trouble paying your heating and electricity bill?: No Do you have trouble taking care of your child, family member or friend?: No Do you have trouble with day-to-day activities such as bathing, preparing meals, shopping, managing finances, etc.?: No Are you currently unemployed and looking for a job?: No Are you interested in more education?: No Please select the resources that you would like help with: None Currently or been in a relationship where the following occur: No concerns reported THRIVE Score: 0 AUDIT C Alcohol Use Questionnaire (AUDIT-C) 1. How often do you have a drink containing alcohol?: Monthly or less 2. How many drinks containing alcohol do you have on a typical day when you are drinking?: 1 or 2 3. How often do you have six or more drinks on one occasion?: Never Total Score: 1 LONDON-7 AMB Questionnaire LONDON-7 Date LONDON - 7 assessed: 12/20/24 Feeling nervous, anxious, or on edge: 3 = Nearly every day Not being able to stop or control worryin = More than half the days Worrying too much about different things: 3 = Nearly every day Trouble relaxin = Nearly every day Being so restless that it is hard to sit still: 2 = More than half the days Becoming easily annoyed or irritable: 1 = Several days Feeling afraid as if something awful might happen: 1 = Several days Total LONDON-7 score (0-4 normal; 5-9 mild; 10-14 moderate; 15-21 severe): 15 Source: Developed by Drs. Kervin Santiago, Samira Tinoco, Tucker Lord and colleagues, with an educational sparkle from [employer]. Review of Systems Const Denies body aches, Denies chills, Denies fever(s), Denies headache(s) and Denies poor appetite Eyes Reports no additional complaints ENT Denies dysphagia, Denies dizziness, Denies headache(s) and Denies odynophagia Card Denies chest pain, Denies syncope, Reports pedal edema, Reports edema, Denies irregular heart rhythm, Reports leg edema, Denies lightheadedness, Denies dyspnea and Reports dyspnea on exertion Resp Denies cough, Denies dyspnea and Reports dyspnea on exertion GI Denies abdominal pain, Denies constipation, Denies dysphagia, Denies diarrhea, Denies nausea, Denies odynophagia and Denies vomiting Reports no additional complaints Musc Reports no additional complaints and Denies abnormal gait Skin/Breast Reports system reviewed and no additional complaints, except as documented Neuro Denies abnormal gait, Denies dizziness, Denies syncope and Denies headache(s) Psych Reports no additional complaints Physical exam (Primary Care) Vital Signs: Last Vital Signs Temp 97.5 F 12/20/24 14:11 Pulse 99 12/20/24 14:11 Resp 18 12/20/24 14:11 BP 140/76 H 12/20/24 14:11 Pulse Ox 94 12/20/24 14:11 Oxygen Delivery Method Room Air 12/20/24 14:11 BMI result Body Mass Index 45.4 Tobacco/Smoking Status: Tobacco use Status Tobacco use date assessed 12/20/24 12/20/24 14:21 Patient Tobacco Use Status Former Tobacco user 12/20/24 14:21 Tobacco use type Cigarette 12/20/24 14:21 e-Cigarette/Vaping Use Never Used 12/20/24 14:21 PHQ-9: PHQ-9 Score PHQ-9: Total score 10 12/20/24 15:04 Thrive Assessment: Date of Thrive Assessment Date Thrive assessed 12/20/24 12/20/24 14:21 Currently or been in a relationship where the following occur: No concerns reported Const General: cooperative, healthy appearing, comfortable and no acute distress Orientation/consciousness: patient oriented x3 HENMT Head: Yes normocephalic Ears: hearing grossly normal bilaterally General nose exam: Normal external nose present Eyes General: appearance normal, both eyes and all related structures Conjunctivae: conjunctivae normal Neck Neck: Yes full ROM and Yes no lymphadenopathy Resp Effort & Inspection: normal respiratory effort Auscultation: clear to auscultation bilaterally, no crackles, no rales, no rhonchi and no wheezes Cardio Rate: regular rate Rhythm: regular rhythm Skin General skin exam: no rashes or lesions noted Neuro General: patient oriented x3 Gait exam (Neuro): Normal gait present Extrem General: Yes normal to inspection, Yes full ROM and No edema Psych Affect: normal affect Attitude: cooperative Insight: Good insight present (Psych) Judgement: Good judgement present (Psych) Coding Level of Care Code Est Pt Level 4 (62734) Diagnoses Dyspnea on exertion R06.09 Localized swelling of both lower legs R22.43 Type 2 diabetes mellitus with hyperglycemia, without long-term current use of insulin E11.65 Diabetes mellitus terminal supervisor insulin use: without terminal supervisor use Hypogonadism in male E29.1 Morbid (severe) obesity due to excess calories E66.01 Time Spent (min) 37 Assessment & Plan Assessment & Plan (1) Dyspnea on exertion: Code(s): R06.09 - Other forms of dyspnea Category: Medical (2) Localized swelling of both lower legs: Code(s): R22.43 - Localized swelling, mass and lump, lower limb, bilateral Category: Medical (3) Type 2 diabetes mellitus with hyperglycemia: Code(s): E11.65 - Type 2 diabetes mellitus with hyperglycemia Category: Medical Qualifiers: Diabetes mellitus detention insulin use: without detention use Qualified Code(s): E11.65 - Type 2 diabetes mellitus with hyperglycemia (4) Hypogonadism in male: Code(s): E29.1 - Testicular hypofunction Category: Medical (5) Morbid (severe) obesity due to excess calories: Code(s): E66.01 - Morbid (severe) obesity due to excess calories Category: Medical Plan The patient will undergo laboratory tests to assess cardiac function and determine if heart failure is present. An echocardiogram has been ordered to evaluate cardiac structure and function while awaiting cardiology consultation. The patient is advised to adhere to prescribed antihypertensive and antidiabetic medications, with emphasis on consistent metformin use regardless of meal intake. A chest x-ray will be repeated to evaluate persistent respiratory symptoms and rule out any pulmonary complications. The patient is encouraged to monitor dietary salt intake and consider lifestyle modifications to manage hypertension and diabetes. Compression stockings are recommended to alleviate peripheral edema, and the patient is advised to elevate legs when possible. The patient last A1C was greater than 10%, he is not taking his Trulicity, though filling the medication. He is also only taking the metformin when he eats. He refused any changes to his regimen today; reports that he has an upcoming appt with his PCP and will address his blood sugar with him. Reports that he wants to focus primarily on his leg swelling. Patient was informed and verbally consented to the use of an ambient scribe for clinic note documentation during this visit. Orders: Orders Basic Metabolic Panel Today R06.09 - Other forms of dyspnea, R22.43 - Localized swelling, mass and lump, lower limb, bilateral XR chest 2V Today R06.09 - Other forms of dyspnea, R22.43 - Localized swelling, mass and lump, lower limb, bilateral Complete Blood Count Auto Diff Today R06.09 - Other forms of dyspnea, R22.43 - Localized swelling, mass and lump, lower limb, bilateral B Type Natriuretic Peptide Today R06.09 - Other forms of dyspnea, R22.43 - Localized swelling, mass and lump, lower limb, bilateral CA echo transthoracic complete Today R06.09 - Other forms of dyspnea, R22.43 - Localized swelling, mass and lump, lower limb, bilateral PFT pulmonary function test Today R06.09 - Other forms of dyspnea, R22.43 - Localized swelling, mass and lump, lower limb, bilateral
== END 2024-12-20 16:13 | disposition home or self-care (01) ==
LOC: HO.HMCH 14:07
PROVIDERS: PCP Internal Medicine
DX: E11.65 Type 2 diabetes mellitus with hyperglycemia (principal); E66.01 Morbid (severe) obesity due to excess calories; Z68.42 Body mass index [BMI] 45.0-49.9, adult; R06.09 Other forms of dyspnea; R22.43 Localized swelling, mass and lump, lower limb, bilateral; E29.1 Testicular hypofunction

== ENCOUNTER → 2024-12-20 15:24 | Outpatient (BNV) | payer OTHER, SELFPAY | PROVIDERS: PCP Internal Medicine; Visit Provider Radiology Diagnostic Radiology | DX: J84.9 Interstitial pulmonary disease, unspecified (principal) | CPT/HCPCS: 71046 ==

== ENCOUNTER 2025-01-15 13:03 | Outpatient (REF) | payer OTHER, SELFPAY ==
[2025-01-15 16:19] LABS: MANUAL DIFF FLAG NO
[2025-01-15 16:55] LABS: Hemoglobin 17.9 g/dl (14.0-18.0); Imm Gran Abs Auto 0.13 X10*3/uL (0.00-0.03); Imm Gran Pct Auto 1.7 % (0.0-0.4); Lymphocytes Absolute Auto 1.2 X10*3/uL (1.2-4.9); Mean Corpuscular HGB Conc 30.1 g/dl (31.0-36.0); Mean Corpuscular Hemoglobin 24.1 pg (27.0-33.0); Mean Corpuscular Volume 80.1 fL (80.0-98.0); NRBC Abs Auto 0.000 X10*3/uL (0.0-0.012); NRBC Pct Auto 0.0 /100WBC (0.0-0.2); Platelet Count 200 X10*3/uL (160-400); Red Blood Count 7.43 X10*6/uL (4.60-5.80); White Blood Count 7.6 X10*3/uL (4.8-10.8)
[2025-01-15 16:56] LABS: Hematocrit 59.5 % (42.0-52.0)
[2025-01-15 17:32] LABS: Alanine Aminotransferase 27 U/L (0-40); Albumin Level 4.0 g/dL (3.5-5.0); Alkaline Phosphatase 54 U/L (39-117); Anion Gap 14 (12-20); Aspartate Amino Transferase 17 U/L (5-37); Blood Urea Nitrogen 15 mg/dL (9-16); Calcium 9.4 mg/dL (8.4-10.2); Carbon Dioxide 31 mmol/L (22-29); Chloride 97 mmol/L (96-108); Estimated Glomerular Filt Rate > 60; Iron 49 mcg/dL (45-160); Percent Iron Saturation 14 % (15-50); Potassium 4.5 mmol/L (3.3-5.1); Sodium 137 mmol/L (135-145); Total Iron Binding Capacity 343 mcg/dL (228-428); Total Protein 6.5 g/dL (6.5-8.0); Unsaturated Iron Binding 294 ug/dL
[2025-01-15 17:33] LABS: Erythrocyte Sedimentation Rate 1 MM/HR (0-15)
[2025-01-15 17:55] LABS: Ferritin 30 ng/mL (20-250); Free T4 (Free Thyroxine) 1.10 ng/dL (0.71-1.85); Thyroid Stimulating Hormone 3.09 uIU/mL (0.32-4.0)
[2025-01-15 18:02] LABS: Folate 11.4 ng/mL (> or = 4.0); Vitamin B12 698 pg/mL (200-900)
[2025-01-15 18:57] LABS: Microalbum/Creatinine Ratio Ur 222.6 ug/mg cr (<30)
== END 2025-01-15 13:04 | disposition home or self-care (01) ==
LOC: HO.LAB 13:03
PROVIDERS: PCP Internal Medicine; Visit Provider Internal Medicine
DX: D75.1 Secondary polycythemia (principal); E11.65 Type 2 diabetes mellitus with hyperglycemia; R71.8 Other abnormality of red blood cells; E66.01 Morbid (severe) obesity due to excess calories; E78.00 Pure hypercholesterolemia, unspecified; E29.1 Testicular hypofunction; I10 Essential (primary) hypertension; Z68.42 Body mass index [BMI] 45.0-49.9, adult
CPT/HCPCS: 36415; 80053; 82043; 82570; 82607; 82728; 82746; 83036; 83540; 84153; 84439; 84443; 85025; 85652; 86141; 99202; 99211; 99212

== ENCOUNTER 2025-01-15 13:03 | Outpatient (AMB) | payer OTHER, SELFPAY ==
--- NOTE | 2025-01-15 13:05 | A.OFFPC_ITS ---
Vital Signs 01/15/25 13:07 01/15/25 13:36 Height 5 ft 11 in Weight 327 lb 4 oz BMI 45.6 BP 140/82 H 110/70 Blood Pressure Location Lt brachial Lt brachial Position Sitting Sitting Pulse 105 H Pulse Source Pulse Oximeter Temp 97.3 F Temp Source Temporal Artery Scan Pulse Oximetry (%) 92 Oxygen Delivery Method Room Air Intake Visit Reasons: Follow Up Allergies Iodinated Contrast Media Allergy (Mild, Verified 01/15/25 14:27) Abdominal Pain Penicillins Allergy (Mild, Verified 01/15/25 14:27) Hives dulaglutide (From Trulicity) Adverse Reaction (Intermediate, Verified 01/15/25 14:27) sob Tobacco use date assessed: 01/15/25 Dental Screening Dental Screen Date: 01/15/25 Did you have a dental visit in the last 12 months?: Yes Did you have a dental problem in the last 6 months where you did not have access to dental care?: No Was dental information given to patient?: Patient has dentist [facility] Medical History Esophagitis Gastritis Asthma Back pain Chest pain Fall Chest wall pain Shortness of breath on exertion LFTs abnormal TSH elevation Poorly controlled type 2 diabetes mellitus Abscess Cholelithiasis Colon cancer screening Umbilical hernia Hypogonadism in male Obesity Hypertension GERD (gastroesophageal reflux disease) Surgical History History of esophagogastroduodenoscopy (EGD) Hx of colonoscopy Laryngeal polyp Hx of LASIK History of appendectomy Family History Father Heart attack Mother No problems noted. Sister No problems noted. Daughter No problems noted. Maternal Grandmother Ovarian cancer Paternal Grandfather Heart attack Paternal Uncle Alcohol abuse Other Mental health disorder Substance use disorder Social History Housing: House Alcohol intake: former Year quit: 2013 Comment: once a month 1 bottle Patient Tobacco Use Status: Former Tobacco user Tobacco use type: Cigarette Years Smoked: 25+/- 2016 e-Cigarette/Vaping Use: Never Used Second Hand Smoke Exposure: No service: No Current occupational status: employed Cognitive needs: No Hearing needs: No Vision needs: Yes Questionnaire PHQ-9 Over the last 2 weeks, how often have you been bothered by any of the following problems? 1. Little interest or pleasure in doing things: not at all 2. Feeling down, depressed, or hopeless: not at all 3. Trouble falling or staying asleep, or sleeping too much: nearly every day 4. Feeling tired or having little energy: several days 5. Poor appetite or overeating: nearly every day 6. Feeling bad about yourself - or that you are a failure or have let yourself o r your family down: not at all 7. Trouble concentrating on things, such as reading the newspaper or watching television: several days 8. Moving or speaking so slowly that other people could have noticed. Or the opposite - being so fidgety or restless that you have been moving around a lot more than usual: more than half the days 9. Thoughts that you would be better off or of hurting yourself in some way: not at all Total score: 10 Source: Developed by Drs. Kervin Santiago, Samira Tinoco, Tucker Lord and colleagues, with an educational sparkle from [employer]. Thrive Questionnaire Date Thrive assessed: 08/09/24 I am a: Patient What is your living situation today?: I have a steady place to live Within the past 12 months, did the food you bought not last and you didn't have the money to get more?: Never true Within the past 12 months, did you worry whether your food would run out before you got money to buy more?: Never true Do you have trouble paying for medicines?: No Do you have trouble getting transportation to medical appointments?: No Do you have trouble paying your heating and electricity bill?: No Do you have trouble taking care of your child, family member or friend?: No Do you have trouble with day-to-day activities such as bathing, preparing meals, shopping, managing finances, etc.?: No Are you currently unemployed and looking for a job?: No Are you interested in more education?: No Please select the resources that you would like help with: None Currently or been in a relationship where the following occur: No concerns reported THRIVE Score: 0 AUDIT C Alcohol Use Questionnaire (AUDIT-C) 1. How often do you have a drink containing alcohol?: Monthly or less 2. How many drinks containing alcohol do you have on a typical day when you are drinking?: 1 or 2 3. How often do you have six or more drinks on one occasion?: Never Total Score: 1 LONDON-7 AMB Questionnaire LONDON-7 Date LONDON - 7 assessed: 12/20/24 Feeling nervous, anxious, or on edge: 3 = Nearly every day Not being able to stop or control worryin = More than half the days Worrying too much about different things: 3 = Nearly every day Trouble relaxin = Nearly every day Being so restless that it is hard to sit still: 2 = More than half the days Becoming easily annoyed or irritable: 1 = Several days Feeling afraid as if something awful might happen: 1 = Several days Total LONDON-7 score (0-4 normal; 5-9 mild; 10-14 moderate; 15-21 severe): 15 Source: Developed by Drs. Kervin Santiago, Samira Tinoco, Tucker Lord and colleagues, with an educational sparkle from [employer]. Physical exam (Primary Care) Vital Signs: Last Vital Signs Temp 97.3 F 01/15/25 13:07 Pulse 105 H 01/15/25 13:07 BP 140/82 H 01/15/25 13:07 Pulse Ox 92 01/15/25 13:07 Oxygen Delivery Method Room Air 01/15/25 13:07 BMI result Body Mass Index 45.6 Tobacco/Smoking Status: Tobacco use Status Tobacco use date assessed 01/15/25 01/15/25 13:15 Patient Tobacco Use Status Former Tobacco user 01/15/25 13:09 Tobacco use type Cigarette 01/15/25 13:09 e-Cigarette/Vaping Use Never Used 01/15/25 13:09 PHQ-9: PHQ-9 Score PHQ-9: Total score 10 01/15/25 13:15 Thrive Assessment: Date of Thrive Assessment Date Thrive assessed 08/09/24 01/15/25 13:09 Currently or been in a relationship where the following occur: No concerns reported Const General: alert; No acute distress Eyes Conjunctivae: conjunctivae normal Resp Auscultation: clear to auscultation bilaterally Cardio Rate: regular rate Rhythm: regular rhythm GI Inspection: Yes normal to inspection Extrem General: Yes normal to inspection and No edema Results AMB Hemoglobin A1c AMB Hemoglobin A1c 10.0 % Last Edit by Elma Chacko CMA on 01/15/25 13:20 Coding Level of Care Code Est Pt Level 4 (84537) Complex EM visit Add On G2211 Diagnoses Type 2 diabetes mellitus with hyperglycemia, without long-term current use of insulin E11.65 Diabetes mellitus exterminator termite insulin use: without exterminator termite use Morbid (severe) obesity due to excess calories E66.01 Hypertension I10 Hypercholesterolemia E78.00 Hypogonadism in male E29.1 Gastroesophageal reflux disease with esophagitis without hemorrhage K21.00 Esophagitis presence: with esophagitis Esophagitis bleeding: without hemorrhage Asthma J45.909 Generalized anxiety disorder F41.1 Erythrocytosis D75.1 Assessment & Plan Assessment & Plan (1) Type 2 diabetes mellitus with hyperglycemia: Code(s): E11.65 - Type 2 diabetes mellitus with hyperglycemia Category: Medical Qualifiers: Diabetes mellitus shelter insulin use: without exterminator termite use Qualified Code(s): E11.65 - Type 2 diabetes mellitus with hyperglycemia Plan: Decrease the amount of carbohydrate intake, pasta, bread, rice and potatoes are all sugar and that is aside from all the sweet stuff, remember that fruits are good but they are Sweet also. Hemoglobin A1c goal of less than 6.5. Patient on Trulicity 0.75 once a week metformin 500 mg 3 times a day (2) Morbid (severe) obesity due to excess calories: Code(s): E66.01 - Morbid (severe) obesity due to excess calories Category: Medical Plan: Diet and exercise (3) Hypertension: Code(s): I10 - Essential (primary) hypertension Category: Medical Plan: Continue with blood pressure medication. Decrease salt intake and exercise patient is on lisinopril 10 mg once a day (4) Hypercholesterolemia: Code(s): E78.00 - Pure hypercholesterolemia, unspecified Category: Medical Plan: Avoid fried foods, chicken skin, eggs, butter margarine, pastries and meat. Be it pork or beef they have a lot of cholesterol LDL goal of less than 100 and triglyceride of less than 150 patient has declined statins (5) Hypogonadism in male: Code(s): E29.1 - Testicular hypofunction Category: Medical Plan: Patient is being followed up by Urology on testosterone (6) GERD (gastroesophageal reflux disease): Code(s): K21.9 - Gastro-esophageal reflux disease without esophagitis Category: Medical Qualifiers: Esophagitis presence: with esophagitis Esophagitis bleeding: without hemorrhage Qualified Code(s): K21.00 - Gastro-esophageal reflux disease with esophagitis, without bleeding Plan: Avoid the foods that causes that usually spicy foods, tomato products, juices, coffee, soda and foods that your sensitive to. After eating do not lie down, allow 3-4 hours before in lie down. And keep the head of bed above 30 degrees to avoid the acid from going up. (7) Asthma: Comment: PFT December 2021 Code(s): J45.909 - Unspecified asthma, uncomplicated Category: Medical Plan: Patient has the albuterol inhaler as needed (8) Generalized anxiety disorder: Comment: Dr. Willoughby Code(s): F41.1 - Generalized anxiety disorder Category: Medical Plan: On diazepam as needed buspirone (9) Erythrocytosis: Code(s): D75.1 - Secondary polycythemia Category: Medical Plan: Most likely secondary to testosterone as this has appeared after testosterone injections Plan History of Present Illness The patient is a 49-year-old male presenting for a follow-up visit after being last seen for a physical examination in July 2024. The patient has a history of diabetes mellitus, with a hemoglobin A1c of 10.3 in July and a recent level of 10.0, indicating poor glycemic control. He is currently on Trulicity and metformin but reports non-adherence to the prescribed metformin regimen due to irregular meal patterns. The patient experiences side effects from Trulicity, including dyspnea and a sensation of a lump in the throat, leading to discontinuation of the medication. The patient has hypertension managed with lisinopril 10 mg daily. He reports not regularly monitoring his blood pressure at home. The patient has hypercholesterolemia with an LDL of 124 mg/dL as of January 2024 and has declined statin therapy. The patient has a history of obstructive sleep apnea and is not compliant with CPAP therapy. The patient has been diagnosed with erythrocytosis, likely secondary to testosterone therapy, with a hemoglobin level of 18 g/dL. He is under consideration for hematology referral to rule out polycythemia vera. 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 - Exercise: No regular exercise routine, primarily sedentary outside of work - Diet: Irregular meal patterns, high intake of carbohydrates such as rice and pasta Review of Systems - Respiratory: Reports dyspnea, sensation of a lump in the throat - Cardiovascular: Denies chest pain, reports fluid retention in legs - Endocrine: Reports non-adherence to metformin regimen - Neurological: Denies headaches Physical Exam Results - Labs: Hemoglobin A1c 10.0, hemoglobin 18 g/dL, LDL 124 mg/dL - Tests: Echocardiogram scheduled for January Plan Patient was informed and verbally consented to the use of an ambient scribe for clinic note documentation during this visit. 1. Diabetes Mellitus The patient's diabetes mellitus is poorly controlled with a hemoglobin A1c of 10.0. He is currently on Trulicity and metformin, but reports non-adherence to metformin due to irregular meal patterns. The patient experiences side effects from Trulicity, including dyspnea and a sensation of a lump in the throat, leading to discontinuation of the medication. A referral to endocrinology is planned for further management, and insulin therapy is being considered. 2. Hypertension The patient's hypertension is managed with lisinopril 10 mg daily. He reports not regularly monitoring his blood pressure at home, which may affect management. 3. Hypercholesterolemia The patient has hypercholesterolemia with an LDL of 124 mg/dL as of January 2024. He has declined statin therapy, and lifestyle modifications are recommended. 4. Obstructive Sleep Apnea The patient has a history of obstructive sleep apnea and is not compliant with CPAP therapy. 5. Erythrocytosis The patient has been diagnosed with erythrocytosis, likely secondary to testosterone therapy, with a hemoglobin level of 18 g/dL. He is under consideration for hematology referral to rule out polycythemia vera. Discussion Notes During the visit, we discussed the patient's poorly controlled diabetes mellitus, with a hemoglobin A1c of 10.0, and the need for better adherence to the metformin regimen despite irregular meal patterns. The patient reported side effects from Trulicity, leading to its discontinuation, and we considered a referral to endocrinology for further management, including potential insulin therapy. We also addressed the patient's hypertension management with lisinopril and the importance of regular blood pressure monitoring at home. The patient's hypercholesterolemia was discussed, noting his decision to decline statins, and we emphasized lifestyle modifications. We reviewed the patient's obstructive sleep apnea and non-compliance with CPAP therapy, as well as erythrocytosis likely secondary to testosterone therapy, with a plan for hematology referral to rule out polycythemia vera. Patient Instructions - Take metformin as prescribed, even if meal patterns are irregular. - Monitor blood pressure regularly at home. - Follow up with endocrinology for diabetes management and potential insulin therapy. - Consider lifestyle changes to manage cholesterol levels, as statins are declined. - Use CPAP machine consistently for obstructive sleep apnea. - Attend scheduled follow-up appointments with gastroenterology and cardiology. Orders: Orders AMB Hemoglobin A1c Today Z13.9 - Encounter for screening, unspecified Free T4 (Free Thyroxine) Today D75.1 - Secondary polycythemia IRON PROFILE Today E11.65 - Type 2 diabetes mellitus with hyperglycemia Microalbumin, Random (w Creat) Today E11.65 - Type 2 diabetes mellitus with hyperglycemia Creatinine Urine Today E11.65 - Type 2 diabetes mellitus with hyperglycemia Prostate Specific Antigen Scr Today E11.65 - Type 2 diabetes mellitus with hyperglycemia Complete Blood Count Auto Diff Today D75.1 - Secondary polycythemia Comprehensive Met. Panel Today D75.1 - Secondary polycythemia Thyroid Stimulating Hormone Today D75.1 - Secondary polycythemia Ferritin Today E11.65 - Type 2 diabetes mellitus with hyperglycemia Vitamin B12 and Folate Today E11.65 - Type 2 diabetes mellitus with hyperglycemia
[2025-01-15 13:07] VITALS: BP 140/82; PULSE 105; TEMP 36.3; O2SAT 92; BMI 45.6
[2025-01-15 13:36] VITALS: BP 110/70
--- OUTSIDE RECORDS SUMMARY | 2025-01-15 16:33 | XMS_ITS | Clinical Summary ---
Author Organization [facility] ity Address [address] [place] [address] Care Team Providers Care Market Asset Protection Manager Name Role Phone Unavailable Primary Care Provider [...] 11/22/2023 Social Influencers of Health Screening 11/22/2023 Depression Screening 05/01/2024 COVID-19 Vaccine (2023-2 5 season) 2024 Influenza Vaccine (#1) 2024 HIB Vaccines Aged [...]
--- OUTSIDE RECORDS SUMMARY | 2025-01-15 16:33 | XMS_ITS | Continuity of Care Document ---
Author Organization [facility] [address] [place] [address] Phone [phone] Social History Type Date Description Comments Sex Male Sex Unknown Medical Devices Description No Information Available Encounters Description No Information Available Assessments Description No Information Available Plan of Treatment No Information Available Functional Status Description No Information Available Mental Status Description No Information Available Referrals Description No Information Available
== END 2025-01-15 14:02 | disposition home or self-care (01) ==
LOC: HO.HMCH 13:04
PROVIDERS: PCP Internal Medicine; Visit Provider Internal Medicine
DX: E11.65 Type 2 diabetes mellitus with hyperglycemia (principal); E66.01 Morbid (severe) obesity due to excess calories; I10 Essential (primary) hypertension; Z68.42 Body mass index [BMI] 45.0-49.9, adult; E78.00 Pure hypercholesterolemia, unspecified; E29.1 Testicular hypofunction; K21.00 Gastro-esophageal reflux disease with esophagitis, without bleeding; J45.909 Unspecified asthma, uncomplicated; F41.1 Generalized anxiety disorder; D75.1 Secondary polycythemia

== ENCOUNTER 2025-01-15 14:09 | Outpatient (AMB) | payer OTHER, SELFPAY ==
--- NOTE | 2025-01-15 14:12 | MHC.OFFVIS ---
Vital Signs 01/15/25 14:32 Height 5 ft 11 in Weight 329 lb 2.402 oz BMI 45.9 BP 116/72 Blood Pressure Location Lt brachial Position Sitting Pulse 101 H Pulse Source Pulse Oximeter Intake Visit Reasons: Type 2 diabetes mellitus without complications Intake Note: New patient internally referred by PCP for T2DM. Last Diabetic Eye exam: Less than 1 year [facility] Last Podiatry Visit: 2-3 weeks ago, [facility] Random Glucose: Patient stated he had random glucose done at PCP office 20 mins ago, did not want to repeat. Okayed by Dr. Montanez. Hgb A1C: 10.0% 01/15/2025 Manager Spa Required: No Accompanied by: Self / Same As Patient Allergies Iodinated Contrast Media Allergy (Mild, Verified 01/15/25 14:27) Abdominal Pain Penicillins Allergy (Mild, Verified 01/15/25 14:27) Hives dulaglutide (From Trulicity) Adverse Reaction (Intermediate, Verified 01/15/25 14:) sob HPI Comments Details: 49 YO M who is seen in consultation for T2DM at the request of PCP. Initially diagnosed with T2DM in 14 yrs ago . Saw Orlando Del Toro Was initially started on treatment with metformin 500 mg t.i.d. and Trulicity 0.75 mg Q weekly ( not taking because had lump in throat . Glipizide Unfortunately, patient did not bring glucometer, sensor log book to follow up appointment Most recent A1C 10.0 , Family history of T2DM in father , grandfather . Has eyes checked yearly, last eye exam <1 yr ago , denies retinopathy. Has neuropathy, l sees podiatry saw 2 wks ago Denies nephropathy, on CHAVO/ARB. Has HLD, Not on statin. Denies CAD. Not Had diabetes education. [facility] Medical History Esophagitis Gastritis Asthma Back pain Chest pain Fall Chest wall pain Shortness of breath on exertion LFTs abnormal TSH elevation Poorly controlled type 2 diabetes mellitus Abscess Cholelithiasis Colon cancer screening Umbilical hernia Hypogonadism in male Obesity Hypertension GERD (gastroesophageal reflux disease) Surgical History History of esophagogastroduodenoscopy (EGD) Hx of colonoscopy Laryngeal polyp Hx of LASIK History of appendectomy Family History Father Heart attack Mother No problems noted. Sister No problems noted. Daughter No problems noted. Maternal Grandmother Ovarian cancer Paternal Grandfather Heart attack Paternal Uncle Alcohol abuse Other Mental health disorder Substance use disorder Social History Housing: House Alcohol intake: former Year quit: 2013 Comment: once a month 1 bottle Patient Tobacco Use Status: Former Tobacco user Tobacco use type: Cigarette Years Smoked: /- 2016 e-Cigarette/Vaping Use: Never Used Second Hand Smoke Exposure: No service: No Current occupational status: employed Cognitive needs: No Hearing needs: No Vision needs: Yes Physical Exam Absence of Cushingoid features. Absence of acromegalic features. Neck exam reveals nl size thyroid about 15 gms. No thyroid nodules palpable. No carotid bruits present. Lungs CTA. Heart S1 S2, Reg R/R. No M/R/ G. Skin exam reveals absence of vitiligo or acanthosis nigricans. Abdominal exam reveals Soft NT/ND with NA BS. No organomegaly present. Neck Other: . Extrem Other: Visual exam of foot performed. 2 + EDEMA ANLES No ulcerations or open lesions. No onchomycosis, no callouses.Pulses 2 + distally Sensation intact to monofilament exam. Vibratory sensation sensed is DECREASED with 128 Hz tuning fork Results AMB Hemoglobin A1c AMB Hemoglobin A1c 10.0 % Last Edit by Elma Chacko CMA on 01/15/25 13:20 Assessment & Plan Assessment & Plan (1) Type 2 diabetes mellitus with hyperglycemia: Code(s): E11.65 - Type 2 diabetes mellitus with hyperglycemia Category: Medical Qualifiers: Diabetes mellitus intermediate manager insulin use: without intermediate manager use Qualified Code(s): E11.65 - Type 2 diabetes mellitus with hyperglycemia Plan: This is a 49-year-old white male with a history of type 2 diabetes being treated with metformin and GLIPIZIDE with poor glycemic control and no known microvascular or macrovascular complication Plan is to have the patient check his point of cares pre and post meals or to initiate a sensor namely Marysol 3+. We initiated a Marysol 3+ sensor with the help of the CDE today. Also attempted to initiate Mounjaro 2.5 mg Q weekly if patient tolerates and we will titrate. Also initiate atorvastatin 10 mg q.d. and recheck lipid profile in 6 weeks. If optimal glycemic control is not achieved with Mounjaro, glipizide and metformin, could initiate insulin at that point. We will also patient has seen a strike operations officer. Patient will follow up in 2-3 months' time Orders: Orders Lipid Panel 7 Weeks E11.65 - Type 2 diabetes mellitus with hyperglycemia, E78.00 - Pure hypercholesterolemia, unspecified Referrals Diabetes Education Referral E11.65 - Type 2 diabetes mellitus with hyperglycemia Nutrition/Dietitian Referral E11.65 - Type 2 diabetes mellitus with hyperglycemia Medications: New atorvastatin (Lipitor) 10 mg PO BEDTIME 30 tabs 5RF Mounjaro (tirzepatide) for 4 weeks 2.5 mg (0.5 mL) subcut QWEEK 2 mL 4RF NS Discontinued dulaglutide (Trulicity) Discontinued Reason: Doctor's Order 0.75 mg (0.5 mL) subcut QWEEK 2 mL 2RF E11.65 - Type 2 diabetes mellitus with hyperglycemia Coding Level of Care Code New Pt Level 5 (26952) Diagnoses Type 2 diabetes mellitus with hyperglycemia, without long-term current use of insulin E11.65 Diabetes mellitus [facility] insulin use: without [facility] use
[2025-01-15 14:32] VITALS: BP 116/72; PULSE 101; BMI 45.9
== END 2025-01-15 15:05 | disposition home or self-care (01) ==
LOC: HO.ENCR 14:10
PROVIDERS: PCP Internal Medicine; Visit Provider Internal Medicine Endocrinology, Diabetes & Metabolism
DX: E11.65 Type 2 diabetes mellitus with hyperglycemia (principal)
CPT/HCPCS: 99204

== ENCOUNTER 2025-01-15 15:04 | Outpatient (AMB) | payer OTHER, SELFPAY ==
--- NOTE | 2025-01-15 15:21 | A.OFFVIS_ITS ---
Intake Intake Visit Reasons: 30 mins Intelligence Engineer Required: No Accompanied by: Self / Same As Patient Allergies Iodinated Contrast Media Allergy (Mild, Verified 01/15/25 14:27) Abdominal Pain Penicillins Allergy (Mild, Verified 01/15/25 14:27) Hives dulaglutide (From [facility]) Adverse Reaction (Intermediate, Verified 01/15/25 14:27) sob HPI Comprehensive Diabetes Asmnt Most Recent Diabetes Results: Creatinine, (0.5-1.4) 0.68 mg/dL 12/20/24 BUN, (9-16) 18 mg/dL H 12/20/24 Sodium, (135-145) 136 mmol/L 12/20/24 Potassium, (3.3-5.1) 4.7 mmol/L 12/20/24 Chloride, (96-108) 97 mmol/L 12/20/24 Carbon Dioxide, (22-29) 29 mmol/L 12/20/24 Calcium, (8.4-10.2) 9.4 mg/dL 12/20/24 PFSH Medical History Esophagitis Gastritis Asthma Back pain Chest pain Fall Chest wall pain Shortness of breath on exertion LFTs abnormal TSH elevation Poorly controlled type 2 diabetes mellitus Abscess Cholelithiasis Colon cancer screening Umbilical hernia Hypogonadism in male Obesity Hypertension GERD (gastroesophageal reflux disease) Surgical History History of esophagogastroduodenoscopy (EGD) Hx of colonoscopy Laryngeal polyp Hx of LASIK History of appendectomy Family History Father Heart attack Mother No problems noted. Sister No problems noted. Daughter No problems noted. Maternal Grandmother Ovarian cancer Paternal Grandfather Heart attack Paternal Uncle Alcohol abuse Other Mental health disorder Substance use disorder Social History Housing: House Alcohol intake: former Year quit: 2013 Comment: once a month 1 bottle Patient Tobacco Use Status: Former Tobacco user Tobacco use type: Cigarette Years Smoked: 25+/- 2016 e-Cigarette/Vaping Use: Never Used Second Hand Smoke Exposure: No service: No Current occupational status: employed Cognitive needs: No Hearing needs: No Vision needs: Yes Assessment & Plan Assessment & Plan (1) Type 2 diabetes mellitus with hyperglycemia: Code(s): E11.65 - Type 2 diabetes mellitus with hyperglycemia Qualifiers: Diabetes mellitus long-term insulin use: without watcher automat long goods use Qualified Code(s): E11.65 - Type 2 diabetes mellitus with hyperglycemia Plan: Patient at visit to set up an RingCaptcha+ with phone greg Marysol user name: Patient is e-mail address Marysol password: [place] [id number] Instructed Pt on what CGM can and can't do CGM Can: Give Pt minute by minute reading of glucose levels Displays glucose trend arrows that represents the direction glucose levels are fluctuating Give insight on decisions about how to dose insulin CGM cannot: Improve glucose control on its own Completely eliminate the need for all finger sticks Make dosing decision for you CGM is the reading of glucose in the interstitial fluid not actual blood glucose , finger sticks are still necessary when Pt's symptom?s do not match sensor reading and if sensors prompts Pt to do a fingerstick Instructed patient sensors water proof you can shower, or swim do not submerge sensor in water for over 30 minutes Is sensor falls off cannot put back in you need to replace sensor, customer service number given to patient for sensor replacement Sensor placed on the back of right arm Patient left visit with sensor in warmup Reviewed how to interpret trend arrows Discussed lag time between finger stick and sensor data.? Instructed patient the importance of having blood glucometer for backup testing if needed Reviewed delay of CGM from fingersticks Reminded Pt that if symptoms do not match sensor still needs to check fingersticks. Portions of this note were created using voice recognition software, please excuse any words or phrases that may have been misinterpreted. Patient Instructions: Patient instruction: CGM provides information on blood glucose control throughout the day, including hyperglycemia and hypoglycemia. ? Continue to monitor blood glucose as instructed. Follow nutrition guidelines provided. Report any discomfort promptly to health care provider. ?Stay well-hydrated. You can bathe ,shower, swim and exercise while wearing the glucose sensor. Do not submerge glucose sensor in water for more than 30 minutes. Coding Level of Care Code Est Pt Level 1 (54330) Diagnoses Type 2 diabetes mellitus with hyperglycemia, without long-term current use of insulin E11.65 Diabetes mellitus long-term insulin use: without watcher automat long goods use Results AMB Hemoglobin A1c AMB Hemoglobin A1c 10.0 % Last Edit by Elma Chacko CMA on 01/15/25 13:20
== END 2025-01-15 15:23 | disposition home or self-care (01) ==
PROVIDERS: PCP Internal Medicine; Visit Provider Registered Nurse Diabetes Educator
DX: E11.65 Type 2 diabetes mellitus with hyperglycemia (principal)

== ENCOUNTER → 2025-01-29 15:13 | Outpatient (REF) | payer OTHER, SELFPAY ==
--- NOTE | 2025-01-29 15:16 | CA_ITS ---
Transthoracic Echocardiogram Patient (Last, First, Middle): Jaspreet Chacko, Gender: Male Date of : 1975 Age: 49 Procedure Date: 01/29/2025 Procedure Type: Transthoracic Echocardiogram Location: OP Height: 180.34 cm Weight: 145.15 kg BSA: 2.58 m2 Heart Rate: 95 bpm BP: 140 / 70 mmHg Planning Director: SB/HOLLY Referring MD: Randall Talley PEOPLESOFT FSCM DEVELOPER-C Symptoms: R22.43 - Localized swelling, mass and lump, lower limb, bilateral Study Quality: Adequate w contrast ECG Rhythm: Sinus Conclusions: - The left ventricular systolic function is normal. The calculated ejection fraction is 58% by biplane method. - There is moderate septal asymmetric hypertrophy. - No obvious valvular pathology seen on this study. Findings Procedure Information Contrast agent, definity, is being given per protocol without apparent complications. The quality of the study was technically difficult. The study quality is limited by patients body habitus and lung artifact. Left Ventricle Normal left ventricular cavity size. The left ventricular systolic function is normal. The calculated ejection fraction is 58% by biplane method. There is no evidence of regional wall motion abnormalities. Diastolic function is normal for age. There is moderate septal asymmetric hypertrophy. Right Ventricle Mildly increased right ventricular cavity size. There is normal right ventricular systolic function. Atria Both atria are normal in size. Aortic Valve The aortic valve was not well visualized. There is mild calcification of the aortic valve. There is no aortic valve stenosis. There is no aortic valve regurgitation. Mitral Valve The mitral valve appears normal. There is no mitral valve regurgitation. There is no mitral valve stenosis. Pulmonic Valve The pulmonic valve is likely normal. Tricuspid Valve There is no tricuspid valve regurgitation. Tricuspid regurgitation envelope is inadequate for calculation of right ventricular systolic pressure. Great Vessels The asc aorta is normal in size. Venous The inferior vena cava is mildly dilated and collapses less than 50% with inspiration. Pericardium/Pleural There is a trivial pericardial effusion. Prior Study Comparison No significant change compared to prior study dated: 12/22/2021. Recommendations, Care & Conclusions No obvious valvular pathology seen on this study. Measurements 2D Linear Measurements IVSd: 1.23 0.6-0.9/0.6-1.0 cm LVIDd: 4.12 3.9-5.3/4.2-5.9 cm LVIDd Index: 1.60 2.4-3.2/2.2-3.1 cm/m2 LVIDs: 3.23 2.0-3.6 cm LVPWd: 0.92 0.7-1.1 cm LV Mass: 183.01 67-162/88-224 g LV Mass Index: 70.93 43-95/49-115 g/m2 LVOT Diam: 2.40 3.0+(-)1.3 cm 2D Systolic Function EF 4C: 62.70 >55% EF 2C: 52.40 >55% EF BiP: 58.30 >55% Mitral Valve MV Pk E: 1.02 MV PK A: 0.75 MV Decel Time: 165.00 E/A: 1.40 E'Lateral: 11.70 E'Medial: 5.44 E/E' Med: 18.80 E/E' Lat: 8.70 PHT: 48.00 MVA PHT: 4.58 Decel Tattnall: 6.22 Aortic Valve AoV Pk Ceferino: 1.67 AoV Mn Ceferino: 1.20 AoV VTI: 0.29 AoV Pk Grad: 11.00 Aov Mn Grad: 7.00 SANJAY Cont.VTI: 3.87 LVOT LVOT Pk Ceferino: 1.37 LVOT Mn Ceferino: 0.99 LVOT VTI: 0.25 LVOT Pk Grad: 8.00 LVOT Mn Grad: 5.00 LVOT Diam: 2.40 LVOT Area: 4.52 Diastolic Function MV Pk E: 1.02 MV Pk A: 0.75 E/A: 1.40 E'Medial: 5.44 E/E' Med: 18.80 E' Laterial: 11.70 E/E' Lat: 8.70 Right Ventricle TAPSE (mm): 20.00 TVS' Ceferino: 14.50 Tricuspid Valve RA Press: 15.00 Great Vessels Aorta Sinus of Valsalva: 2.90 2.0-3.5 cm Ao Asc: 3.10 2.1-3.4 cm Pulmonary Veins Pulm Vein S/D 1.10 Pulmonary Valve PV Pk Ceferino: 1.36 Peak PV Grad: 7.00 Updated in Other Vendor System with Status of Final Jose Cruz Harris MD electronically signed on 01/31/2025 1:45:05 PM with status of Final
--- OUTSIDE RECORDS SUMMARY | 2025-01-29 16:14 | XMS_ITS | Continuity of Care Document ---
Author Organization [facility] Address [address] [place] [address] Phone [phone] Social History Type Date Description Comments Sex Male Sex Unknown Medical Devices Description No Information Available Encounters Description No Information Available Assessments Description No Information Available Plan of Treatment No Information Available Functional Status Description No Information Available Mental Status Description No Information Available Referrals Description No Information Available
--- OUTSIDE RECORDS SUMMARY | 2025-01-29 16:14 | XMS_ITS | Clinical Summary ---
Author Organization [facility] Address [address] [place] [address] Care Team Providers Care Caseworker Intake Name Role Phone Unavailable Primary Care Provider [...]
== END ==
LOC: HO.CARD 15:13
PROVIDERS: PCP Internal Medicine
DX: R22.43 Localized swelling, mass and lump, lower limb, bilateral (principal); R06.09 Other forms of dyspnea
CPT/HCPCS: 93306; Q9957

== ENCOUNTER → 2025-01-29 15:16 | Outpatient (BNV) | payer OTHER, SELFPAY | PROVIDERS: PCP Internal Medicine; Visit Provider Internal Medicine | DX: I42.2 Other hypertrophic cardiomyopathy (principal) | CPT/HCPCS: 93306 ==

== ENCOUNTER 2025-02-05 16:01 | Outpatient (AMB) | payer OTHER, SELFPAY ==
--- NOTE | 2025-02-05 16:09 | A.OFFVIS_ITS ---
Intake Intake Visit Reasons: 60 mins Allergies Iodinated Contrast Media Allergy (Mild, Verified 01/15/25 14:27) Abdominal Pain Penicillins Allergy (Mild, Verified 01/15/25 14:27) Hives dulaglutide (From [facility]) Adverse Reaction (Intermediate, Verified 01/15/25 14:27) sob HPI Comprehensive Diabetes Asmnt Most Recent Diabetes Results: 2 Microalb/Creat Ratio, (<30) 222.6 ug/mg cr H 01/15/25 Creatinine, (0.5-1.4) 0.78 mg/dL 01/15/25 BUN, (9-16) 15 mg/dL 01/15/25 Sodium, (135-145) 137 mmol/L 01/15/25 Potassium, (3.3-5.1) 4.5 mmol/L 01/15/25 Chloride, (96-108) 97 mmol/L 01/15/25 Carbon Dioxide, (22-29) 31 mmol/L H 01/15/25 Calcium, (8.4-10.2) 9.4 mg/dL 01/15/25 AST, (5-37) 17 U/L 01/15/25 ALT, (0-40) 27 U/L 01/15/25 Total Protein, (6.5-8.0) 6.5 g/dL 01/15/25 Albumin, (3.5-5.0) 4.0 g/dL 01/15/25 [facility] Medical History Esophagitis Gastritis Asthma Back pain Chest pain Fall Chest wall pain Shortness of breath on exertion LFTs abnormal TSH elevation Poorly controlled type 2 diabetes mellitus Abscess Cholelithiasis Colon cancer screening Umbilical hernia Hypogonadism in male Obesity Hypertension GERD (gastroesophageal reflux disease) Surgical History History of esophagogastroduodenoscopy (EGD) Hx of colonoscopy Laryngeal polyp Hx of LASIK History of appendectomy Family History Father Heart attack Mother No problems noted. Sister No problems noted. Daughter No problems noted. Maternal Grandmother Ovarian cancer Paternal Grandfather Heart attack Paternal Uncle Alcohol abuse Other Mental health disorder Substance use disorder Social History Housing: House Alcohol intake: former Year quit: 2013 Comment: once a month 1 bottle Patient Tobacco Use Status: Former Tobacco user Tobacco use type: Cigarette Years Smoked: +/- 2016 e-Cigarette/Vaping Use: Never Used Second Hand Smoke Exposure: No service: No Current occupational status: employed Cognitive needs: No Hearing needs: No Vision needs: Yes Assessment & Plan Assessment & Plan (1) Type 2 diabetes mellitus with hyperglycemia: Code(s): E11.65 - Type 2 diabetes mellitus with hyperglycemia Qualifiers: Diabetes mellitus shelter insulin use: without terminal superintendent use Q ualified Code(s): E11.65 - Type 2 diabetes mellitus with hyperglycemia Plan: Personal Continuous Glucose Monitor: Patients CGM information reviewed, Pt uses Sample Marysol 3+ sensor Patient has significant rising glucose levels after 06:00 and stays, over target until between 6 and 7pm range reports he does not eat breakfast till almost 11 a.m., but does consume caffeine throughout the day. Discuss the effects that caffeine can have on glucose levels. Reviewed information below: Blood glucose monitoring When/how often to test Target blood sugar ranges Introduction to Nutrition Importance of healthy diet in managing DM Diet is personalized to individual preference Review patient?s regular diet/food preferences Who prepares meals/does food shopping/ Dining out?/ Barriers? How diet effects glucose Eating 3 balanced meals a day with small, healthy snacks between meals Review food groups Carbohydrates: What is a carbohydrate/Which food/food groups are considered carbohydrates Effect of carbohydrates on blood glucose Portion sizes Reading food labels Basic carb counting (if applicable per nursing assessment) Plate method Meal planning Recommendations: Follow plate method, consistent carbs and read nutritional labels. Smart Goal: patient will reduce caffeine throughout the day Educational Materials: The patient was provided with the following written educational materials: Planning Healthy Meals Handout I will send a message to Dr. Montanez regarding prescription for Mounjaro Reviewed how to interpret trend arrows Reminded patient that to check finger sticks if symptoms do not match sensor reading. Discussed lag time between finger stick and sensor data.? Portions of this note were created using voice recognition software, please excuse any words or phrases that may have been misinterpreted. Patient Instructions: Follow-up with diabetes education 2 weeks prior to appointment with Dr. Montanez to insert 2nd Marysol 3+ sample sensor Coding Level of Care Code Est Pt Level 1 (36541) Diagnoses Type 2 diabetes mellitus with hyperglycemia, without long-term current use of insulin E11.65 Diabetes mellitus terminal superintendent insulin use: without terminal superintendent use
== END 2025-02-05 16:32 | disposition home or self-care (01) ==
LOC: HO.ENCR 16:01
PROVIDERS: PCP Internal Medicine; Visit Provider Registered Nurse Diabetes Educator
DX: E11.65 Type 2 diabetes mellitus with hyperglycemia (principal)

== ENCOUNTER → 2025-02-05 16:01 | Outpatient (BNVA) | payer OTHER, SELFPAY | PROVIDERS: PCP Internal Medicine; Visit Provider Registered Nurse Diabetes Educator | DX: E11.65 Type 2 diabetes mellitus with hyperglycemia (principal) | CPT/HCPCS: 99211 ==

== ENCOUNTER 2025-02-12 16:26 | Outpatient (REF) | payer OTHER, SELFPAY ==
[2025-02-12 17:30] LABS: Hemoglobin 17.4 g/dl (14.0-18.0); Mean Corpuscular HGB Conc 30.3 g/dl (31.0-36.0); Mean Corpuscular Hemoglobin 24.5 pg (27.0-33.0); Mean Corpuscular Volume 80.7 fL (80.0-98.0); NRBC Abs Auto 0.000 X10*3/uL (0.0-0.012); NRBC Pct Auto 0.0 /100WBC (0.0-0.2); Platelet Count 152 X10*3/uL (160-400); Red Blood Count 7.11 X10*6/uL (4.60-5.80); White Blood Count 6.2 X10*3/uL (4.8-10.8)
[2025-02-12 17:51] LABS: Hematocrit 57.4 % (42.0-52.0)
[2025-02-12 18:13] LABS: Prostate Specific Antigen 0.47 ng/mL (<0.05-4.0)
--- OUTSIDE RECORDS SUMMARY | 2025-02-12 19:28 | XMS_ITS | Continuity of Care Document ---
Author Organization [facility] Address [address] [place] [address] Phone [phone] Social History Type Date Description Comments Sex Male Sex Unknown Medical Devices Description No Information Available Encounters Description No Information Available Assessments Description No Information Available Plan of Treatment No Information Available Functional Status Description No Information Available Mental Status Description No Information Available Referrals Description No Information Available
--- OUTSIDE RECORDS SUMMARY | 2025-02-12 19:28 | XMS_ITS | Clinical Summary ---
Author Organization [facility] ity Address [address] [place] [address] Care Team Providers Care Home Appliance Tech Name Role Phone Unavailable Primary Care Provider Unavailabl e Social History Tobacco Use Types Packs/Day Years Used Date Smoking Tobacco: Never Assessed Sex and Gender Information Value Date Recorded Sex Assigned at Not on file Legal Sex Male 1:35 PM EDT Gender Identity Not on file Sexual Orientation Not on file Plan of Treatment Health Maintenance Due Date Last Done Comments Colorectal Cancer Screening: Colonoscopy 1975 DTaP,Tdap,and Td Vaccines (1 - Tdap) 09/25/1994 Hepatitis B Vaccines (1 of 3 - 19+ 3-dose series) 09/25/1994 Cholesterol Screening (Lipid Panel) 11/22/2023 HIV Screening 11/22/2023 Hepatitis C Screening 11/22/2023 Social Influencers of Health Screening 11/22/2023 Depression Screening 05/01/2024 COVID-19 Vaccine ( - 2023-2 5 season) 2024 Influenza Vaccine (#1) 2024 RSV Immunization Adult Patie nts (1 - 1-dose 75+ series) 09/25/2050 HIB Vaccines Aged Out No longer eligi [...]
== END 2025-02-12 16:27 | disposition home or self-care (01) ==
LOC: HO.LAB 16:26
PROVIDERS: PCP Internal Medicine; Visit Provider Urology
DX: E11.65 Type 2 diabetes mellitus with hyperglycemia (principal); E29.1 Testicular hypofunction
CPT/HCPCS: 36415; 82570; 84153; 84402; 84403; 85027

== ENCOUNTER 2025-02-28 12:44 | Outpatient (AMB) | payer OTHER, SELFPAY ==
--- NOTE | 2025-02-28 12:44 | A.OFFVIS_ITS ---
Intake Visit Reasons: follow up/Testo Intake Note: Patient is present for Telehealth follow up Urology Medication:TESTOSTERONE,TADALAFIL Antibiotic Allergy:PENICILLINS Blood Thinner:NONE Labs done 02/12/25: Fr testosterone : TNP Total testosterone :510, PSA 0.47 Utilization Specialist Required: No Accompanied by: Self / Same As Patient Allergies Iodinated Contrast Media Allergy (Mild, Verified 02/28/25 12:46) Abdominal Pain Penicillins Allergy (Mild, Verified 02/28/25 12:46) Hives dulaglutide (From [facility]) Adverse Reaction (Intermediate, Verified 02/28/25 12:46) sob HPI Comments Details: Jaspreet is a pleasant male. He is a patient of Dr. Lunsford. He is seen for the following urologic conditions - erectile dysfunction with type 2 diabetes - lower urinary tract symptoms - hypogonadism Telemedicine Evaluation 15 min Consultation [employer] Raphael Video Testosterone dose to 60 units, 120 mg Appropriate response Does have erythrocytosis Discussed splitting dose 2 times per week May need to shift to long-acting if possible High-dose daily tadalafil with on demand appears to be effective 10 mg daily, up to 40 mg on demand Injection Day: Monday Lab Day: Mon Hypogonadism Intermittent treatment for many years Had used large doses of steroids in 's and Insurance issues related to topical therapy Prescription for injectable provided - initial dosing 100 mg subQ weekly Erectile dysfunction with type 2 diabetes Progressive Able to obtain but cannot maintain erection Comorbid diagnoses include diabetes Therapy - daily tadalaifl Investigations - 12/20 T 230 F 65, 10/21 T 127 Free 38, 01/21 T 242 H 52.8, 02/21 332 F 76 Hct 46, 08/23 T255, 11/22 300 8.2, 02/22 510 0.5 57% Lower urinary tract symptoms Mild nocturia Mild urgency frequency PFSH Medical History Esophagitis Gastritis Asthma Back pain Chest pain Fall Chest wall pain Shortness of breath on exertion LFTs abnormal TSH elevation Poorly controlled type 2 diabetes mellitus Abscess Cholelithiasis Colon cancer screening Umbilical hernia Hypogonadism in male Obesity Hypertension GERD (gastroesophageal reflux disease) Surgical History History of esophagogastroduodenoscopy (EGD) Hx of colonoscopy Laryngeal polyp Hx of LASIK History of appendectomy Family History Father Heart attack Mother No problems noted. Sister No problems noted. Daughter No problems noted. Maternal Grandmother Ovarian cancer Paternal Grandfather Heart attack Paternal Uncle Alcohol abuse Other Mental health disorder Substance use disorder Social History Housing: House Alcohol intake: former Year quit: 2013 Comment: once a month 1 bottle Patient Tobacco Use Status: Former Tobacco user Tobacco use type: Cigarette Years Smoked: /- 2016 e-Cigarette/Vaping Use: Never Used Second Hand Smoke Exposure: No service: No Current occupational status: employed Cognitive needs: No Hearing needs: No Vision needs: Yes Review of Systems Const All systems reviewed & are unremarkable except as noted in HPI and below Reports no additional complaints Resp Reports no additional complaints GI Reports no additional complaints Reports as per HPI Musc Reports no additional complaints Physical Exam Telemedicine evaluation Appropriate responses Regular breathing rate and rhythm HEENT Head: Yes normal to inspection Ears: hearing grossly normal bilaterally Eyes General: appearance normal, both eyes and all related structures Neck Neck: Yes normal visual inspection Chest Chest palpation & inspection: normal inspection of the chest Resp Effort & Inspection: normal respiratory effort and able to speak in complete sentences Telehealth Telehealth Telehealth Platform: [employer] Location of provider rendering services: practice address Location of patient: address on file Patient Identification confirmed using: Name, : Yes Telehealth method: video Patient verbally consented to treatment: Yes Patient verbally consented to billing insurance company: Yes Patient informed of any privacy concerns related to visit: Yes Assessment & Plan Assessment & Plan (1) Hypogonadism in male: Code(s): E29.1 - Testicular hypofunction Category: Medical Plan Three-month follow-up lab work Orders: Orders Testosterone, Total 3 Months E29.1 - Testicular hypofunction Complete Blood Count no Diff 3 Months E29.1 - Testicular hypofunction Medications: Refilled syringe (disposable) (BD Luer-Savi Syringe) Testosterone injection weekly 30 ea 0RF E34.9 - Endocrine disorder, unspecified testosterone cypionate (Depo-Testosterone) 120 mg (0.6 mL) subcut QWEEK 4 mL 2RF 4 weeks E29.1 - Testicular hypofunction, [id number] tadalafil 10 mg PO DAILY 90 tabs 1RF sexual activity 90 days E11.69 - Type 2 diabetes mellitus with other specified complication, N52.1 - Erectile dysfunction due to diseases classified elsewhere Patient Instructions: This note is constructed using voice recognition software. While every effort has been made to ensure accuracy stroke program coordinator errors may have been included. Imaging studies, laboratory and physical exam results were discussed and reviewed in detail. No major barriers to patient understanding were identified. An opportunity to ask questions regarding the treatment plan was provided. All questions were answered. The patient expressed understanding and agreement with the above treatment plan. The patient is aware they should contact our office by phone for worsening of their current condition or the appearance of new urologic symptoms. Compliance is encouraged with any medications and followup testing that is ordered. It is a privilege to participate in the urologic care of your patient. If you have any questions or concerns regarding treatment for the above conditions, or other urologic issues, please do not hesitate to contact me. The office telephone contact is [phone]. Sincerely, Dr Sandip Becker MD, [facility] - Urology Compassionate Specialist Care for the Genitourinary System Coding Level of Care Code Tele Est Pt Level 3 (19688) Complex EM visit Add On G2211 Diagnoses Hypogonadism in male E29.1
--- OUTSIDE RECORDS SUMMARY | 2025-02-28 13:53 | XMS_ITS | Clinical Summary ---
Author Organization [facility] ity Address [address] [place] [address] Care Team Providers Care Account Executive Key Accounts Name Role Phone Unavailable Primary Care Provider [...]
== END 2025-02-28 14:31 | disposition home or self-care (01) ==
LOC: HO.HUSH 12:44
PROVIDERS: PCP Internal Medicine; Visit Provider Urology
DX: E29.1 Testicular hypofunction (principal)
CPT/HCPCS: 99213

== ENCOUNTER 2025-03-17 15:02 | Outpatient (AMB) | payer OTHER, SELFPAY ==
[2025-03-17 15:04] VITALS: BP 140/80; PULSE 88; O2SAT 93; BMI 42.9
--- NOTE | 2025-03-17 15:04 | MHC.OFFVIS ---
Vital Signs 03/17/25 15:04 Height 5 ft 11 in Weight 307 lb 8.717 oz BMI 42.9 BP 140/80 H Blood Pressure Location Lt brachial Position Sitting Pulse 88 Pulse Source Pulse Oximeter Pulse Oximetry (%) 93 Oxygen Delivery Method Room Air Intake Visit Reasons: Abnormal Blood Gas/Asthma Environmental Associate Required: No Accompanied by: Self / Same As Patient Allergies Iodinated Contrast Media Allergy (Mild, Verified 03/17/25 15:07) Abdominal Pain Penicillins Allergy (Mild, Verified 03/17/25 15:07) [facility] ([facility] Adverse Reaction (Intermediate, Verified 03/17/25 15:07) sob HPI Comments Details: The patient is here for pulmonary evaluation. The patient is a 49-year-old gentleman with known history of obstructive sleep apnea likely asthma. The patient has been having worsening shortness of breath with activity. It appears to be episodic. Sometimes it can be moderate severity. Sometimes he is very short of breath to the point that he feels like he needs to go to the ER. Sometimes he feels okay. Today he actually feels okay. He does have albuterol that he uses as needed. Although he does not use it that often. The patient did have pulmonary function studies back in 2021 which I personally reviewed demonstrating some evidence of small airways disease suggesting asthma. The patient does not think though that he has asthma. He has smoked for many years about 3-4 packs a day for about 20 years. He did quit 8 years ago. He was also exposed to significant amount of inorganic dust throughout his life. The patient has not had any recent imaging studies to review. Although he did complain of lower extremity swelling prior to getting worsening symptoms and then another set in the lower extremity swelling subsided. He has had shortness of breath. In the office visit we did go for brief walking oximetry in his he did desaturate down to about 90%. Therefore, he does have an issue isn't clear the etiology. But thromboembolic disease is definitely in the differential. Therefore will do blood work including a D-dimer. The patient will need to have repeat PFTs and also if he is D-dimer is negative he still needs to undergo additional imaging studies to assess his hypoxia. The patient also has a untreated sleep apnea. He had diagnosed sleep apnea many years ago. He does have daytime drowsiness. Also wakes up short of breath. His [place] score is elevated 04/23. He will need to have another home sleep study. The patient will follow-up after the studies are done and if any issues arise he will call. In the meantime he is going to be placed on a maintenance inhaler that he reduce daily. COUNTS INCLUDE 234 BEDS AT THE [facility] Medical History (Updated 03/17/25 @ 21:37 by Jason Willis MD) Asthma-COPD overlap syndrome Polycythemia IZABELLA (obstructive sleep apnea) Hypoxia Dyspnea Esophagitis Gastritis Asthma Back pain Chest pain Fall Chest wall pain Shortness of breath on exertion LFTs abnormal TSH elevation Poorly controlled type 2 diabetes mellitus Abscess Cholelithiasis Colon cancer screening Umbilical hernia Hypogonadism in male Obesity Hypertension GERD (gastroesophageal reflux disease) Surgical History History of esophagogastroduodenoscopy (EGD) Hx of colonoscopy Laryngeal polyp Hx of LASIK History of appendectomy Family History Father Heart attack Mother No problems noted. Sister No problems noted. Daughter No problems noted. Maternal Grandmother Ovarian cancer Paternal Grandfather Heart attack Paternal Uncle Alcohol abuse Other Mental health disorder Substance use disorder Social History Housing: House Alcohol intake: former Year quit: 2013 Comment: once a month 1 bottle Patient Tobacco Use Status: Former Tobacco user Tobacco use type: Cigarette Years Smoked: +/- 2016 e-Cigarette/Vaping Use: Never Used Second Hand Smoke Exposure: No service: No Current occupational status: employed Cognitive needs: No Hearing needs: No Vision needs: Yes Review of Systems Const Reports daytime sleepiness, Reports difficulty sleeping, Denies fever(s), Reports snoring and Reports stops breathing during sleep Eyes Reports no additional complaints ENT Denies dizziness Card Denies chest pain, Denies syncope, Reports pedal edema, Reports edema, Denies irregular heart rhythm, Reports leg edema, Denies lightheadedness, Denies dyspnea and Reports dyspnea on exertion Resp Denies cough, Denies dyspnea, Reports dyspnea on exertion and Reports snoring GI Denies abdominal pain Reports no additional complaints Musc Reports no additional complaints and Denies abnormal gait Skin/Breast Reports system reviewed and no additional complaints, except as documented Neuro Denies abnormal gait, Denies dizziness and Denies syncope Psych Reports no additional complaints Physical Exam Vital Signs: Last Vital Signs Pulse 88 03/17/25 15:04 BP 140/80 H 03/17/25 15:04 Pulse Ox 93 03/17/25 15:04 Oxygen Delivery Method Room Air 03/17/25 15:04 BMI result Body Mass Index 42.9 Const General: cooperative, healthy appearing, comfortable and no acute distress Orientation/consciousness: patient oriented x3 HEENT Face and sinus: Yes normal facial exam Mouth: moist mucous membranes Neck Neck: Yes normal visual inspection, Yes full ROM and Yes trachea midline Chest Chest palpation & inspection: normal inspection of the chest Resp Effort & Inspection: normal respiratory effort and no respiratory distress Auscultation: diminished lung sounds Cardio Heart sounds: S1 normal heart sound present and S2 normal heart sound present GI Palpation (GI): Soft to palpation Skin General skin exam: no rashes or lesions noted Neuro General: patient oriented x3, gait normal, tone normal and moves all extremities Extrem General: Yes normal to inspection, Yes capillary refill normal, No clubbing, No cyanosis and Yes edema Assessment & Plan Assessment & Plan (1) Dyspnea: Code(s): R06.00 - Dyspnea, unspecified Category: Medical Qualifiers: Dyspnea type: dyspnea on exertion Qualified Code(s): R06.09 - Other forms of dyspnea (2) Asthma: Comment: PFT December 2021 Code(s): J45.909 - Unspecified asthma, uncomplicated Category: Medical Qualifiers: Asthma severity: moderate Asthma persistence: persistent Asthma complication type: uncomplicated Qualified Code(s): J45.40 - Moderate persistent asthma, uncomplicated (3) IZABELLA (obstructive sleep apnea): Code(s): G47.33 - Obstructive sleep apnea (adult) (pediatric) Category: Medical (4) Asthma-COPD overlap syndrome: Code(s): J44.9 - Chronic obstructive pulmonary disease, unspecified Category: Medical (5) Hypoxia: Code(s): R09.02 - Hypoxemia Category: Medical (6) Former smoker: Code(s): Z87.891 - Personal history of nicotine dependence Category: Social Hx Plan Bloodwork start Trelegy 100 daily RANJANA as needded PFTs/CXR LDCT program In lab sleep study F/U 3-4 months Orders: Orders Erythrocyte Sedimentation Rate Today R06.00 - Dyspnea, unspecified, R09.02 - Hypoxemia Complete Blood Count Auto Diff Today R06.00 - Dyspnea, unspecified, R09.02 - Hypoxemia Immunoglobulin E Today R06.00 - Dyspnea, unspecified, R09.02 - Hypoxemia XR chest 2V Today R09.02 - Hypoxemia Venous Blood Gas Today R06.00 - Dyspnea, unspecified, R09.02 - Hypoxemia Troponin-I High Sensitivity Today R06.00 - Dyspnea, unspecified, R09.02 - Hypoxemia D Dimer High Sensitivity Today R06.00 - Dyspnea, unspecified, R09.02 - Hypoxemia Basic Metabolic Panel Today R06.00 - Dyspnea, unspecified, R09.02 - Hypoxemia Referrals Lung Cancer Screening Referral Z87.891 - Personal history of nicotine dependence Medications: New ptmntjremqq-ythesgncj-zkbrsduc 100-62.5-25 mcg (Trelegy Ellipta) 1 inh inhalation DAILY 60 ea 11RF 30 days J44.9 - Chronic obstructive pulmonary disease, unspecified Coding Level of Care Code New Pt Level 4 (16109) Diagnoses Dyspnea on exertion R06.09 Dyspnea type: dyspnea on exertion Moderate persistent asthma without complication J45.40 Asthma severity: moderate Asthma persistence: persistent Asthma complication type: uncomplicated IZABELLA (obstructive sleep apnea) G47.33 Asthma-COPD overlap syndrome J44.9 Hypoxia R09.02 Former smoker Z87.891 Time Spent (min) 40
== END 2025-03-17 15:43 | disposition home or self-care (01) ==
LOC: HO.HPS 15:03
PROVIDERS: PCP Internal Medicine; Referring Provider Nurse Practitioner Family; Visit Provider Hospitalist
DX: R06.09 Other forms of dyspnea (principal); J45.40 Moderate persistent asthma, uncomplicated; G47.33 Obstructive sleep apnea (adult) (pediatric); J44.9 Chronic obstructive pulmonary disease, unspecified; R09.02 Hypoxemia; Z87.891 Personal history of nicotine dependence
CPT/HCPCS: 99204

== ENCOUNTER 2025-03-17 15:02 | Outpatient (REF) | payer OTHER, SELFPAY ==
[2025-03-17 16:51] LABS: MANUAL DIFF FLAG NO
[2025-03-17 16:57] LABS: Venous Blood Gas Refer to POC result
[2025-03-17 17:00] LABS: VBG HCO3 27 mmol/L (22-26); VBG O2 % Saturation 85.0 %
[2025-03-17 17:11] LABS: Hemoglobin 19.9 g/dl (14.0-18.0); Imm Gran Abs Auto 0.06 X10*3/uL (0.00-0.03); Imm Gran Pct Auto 0.8 % (0.0-0.4); Lymphocytes Absolute Auto 1.4 X10*3/uL (1.2-4.9); Mean Corpuscular HGB Conc 31.0 g/dl (31.0-36.0); Mean Corpuscular Hemoglobin 25.2 pg (27.0-33.0); Mean Corpuscular Volume 81.3 fL (80.0-98.0); NRBC Abs Auto 0.000 X10*3/uL (0.0-0.012); NRBC Pct Auto 0.0 /100WBC (0.0-0.2); Platelet Count 182 X10*3/uL (160-400); Red Blood Count 7.90 X10*6/uL (4.60-5.80); White Blood Count 7.4 X10*3/uL (4.8-10.8)
[2025-03-17 17:22] LABS: Hematocrit 64.2 % (42.0-52.0)
[2025-03-17 17:37] LABS: Anion Gap 11 (12-20); Blood Urea Nitrogen 21 mg/dL (9-16); Calcium 10.3 mg/dL (8.4-10.2); Carbon Dioxide 27 mmol/L (22-29); Chloride 102 mmol/L (96-108); Estimated Glomerular Filt Rate > 60; Potassium 4.4 mmol/L (3.3-5.1); Sodium 136 mmol/L (135-145)
[2025-03-17 17:39] LABS: D Dimer High Sensitivity < 150 NG/ML
[2025-03-17 17:50] LABS: Troponin-I High Sensitivity < 2.7 ng/L (<3.5-35.0)
== END 2025-03-17 15:03 | disposition home or self-care (01) ==
LOC: HO.LAB 15:02
PROVIDERS: PCP Internal Medicine; Referring Provider Nurse Practitioner Family; Visit Provider Hospitalist
DX: J45.40 Moderate persistent asthma, uncomplicated (principal); J44.89 Other specified chronic obstructive pulmonary disease; G47.33 Obstructive sleep apnea (adult) (pediatric); Z87.891 Personal history of nicotine dependence
CPT/HCPCS: 36415; 80048; 82785; 82803; 84484; 85025; 85379; 85652; 99202

== ENCOUNTER 2025-03-19 15:04 | Outpatient (AMB) | payer OTHER, SELFPAY ==
--- NOTE | 2025-03-19 15:22 | A.OFFVIS_ITS ---
Vital Signs 03/19/25 15:39 Height 5 ft 11 in Weight 304 lb 3.806 oz BMI 42.4 BP 142/82 H Blood Pressure Location Lt brachial Position Sitting Pulse 89 Pulse Source Pulse Oximeter Pulse Oximetry (%) 96 Oxygen Delivery Method Room Air Intake Visit Reasons: Type 2 diabetes mellitus without complications Intake Note: Patient present today for T2DM Last Diabetic Eye exam: Less than 1 year [facility] Last Podiatry Visit: 11/2024 [facility] Random Glucose: 172 mg/dl Hgb A1C: 10.0% 01/15/2025 Forestry Pilot Required: No Accompanied by: Self / Same As Patient Allergies Iodinated Contrast Media Allergy (Mild, Verified 03/19/25 15:45) Abdominal Pain Penicillins Allergy (Mild, Verified 03/19/25 15:45) Hives dulaglutide (From [facility]) Adverse Reaction (Intermediate, Verified 03/19/25 15:45) sob Medication List - Last Reconciled 03/19/25 by Kervin Montanze MD albuterol sulfate 90 mcg/actuation (Ventolin HFA) 2 puffs PO Q6H PRN atorvastatin (Lipitor) 10 mg PO BEDTIME azelastine 2 sprays intranasal BID blood sugar diagnostic (Contour Plus Test Strip) To measure blood glucose 4-6 times per day blood-glucose meter (Contour Plus Blue Meter) To measure blood glucose 4-6 times per day blood-glucose sensor (FreeStyle Marysol 3 Sensor device) As directed blood-glucose,stockroom coordinator,cont (FreeStyle Marysol 3 Stanley) As directed buspirone 40 mg (4 x 10 mg) PO DAILY 30 days clotrimazole 1% topical diazepam 5 mg PO DAILY PRN docusate sodium 100 mg PO BEDTIME gtymlivybaj-cjkhrhcdy-arzocsbs 100-62.5-25 mcg (Trelegy Ellipta) 1 inh inhalation DAILY 30 days glipizide 10 mg PO BID lisinopril 10 mg PO DAILY metformin 1,000 mg (2 x 500 mg) PO BID 90 days milk thistle 150 mg PO BID needle (disp) 18 G (BD Regular Bevel [place]) As directed - draw up testosterone pantoprazole 20 mg PO DAILY pen needle, diabetic (BD Ultra-Fine Mini Pen Needle) As directed once a week for ozempic polyethylene glycol 3350 (Gavilax) 17 grams PO DAILY sennosides (senna) 17.2 mg (2 x 8.6 mg) PO BEDTIME syringe (disposable) (BD Luer-Savi Syringe) Testosterone injection weekly tadalafil 10 mg PO DAILY 90 days testosterone cypionate (Depo-Testosterone) 120 mg (0.6 mL) subcut QWEEK 4 weeks tirzepatide (Mounjaro) 7.5 mg (0.5 mL) subcut QWEEK HPI Comments Details: 49 YO M who is seen in consultation for T2DM at the request of PCP. Initially diagnosed with T2DM in 14 yrs ago . Saw Orlando Del Toro Was initially started on treatment with metformin 1000 mg t.i.d. and Mounjaro 7.5 mg . Glipizide 10mg BID. Had to stop Jardiance because had yeast infection Has not had Marysol for last 2 mos Has eyes checked yearly, last eye exam <1 yr ago , denies retinopathy. Has neuropathy, l sees podiatry saw 2 wks ago Denies nephropathy, on CHAVO/ARB. Has HLD, Not on statin. Denies CAD. Not Had diabetes education. [facility] Medical History (Updated 03/26/25 @ 15:04 by Jose Cruz Harris MD) Obesity Asthma-COPD overlap syndrome Polycythemia IZABELLA (obstructive sleep apnea) Hypoxia Dyspnea Esophagitis Gastritis Asthma Back pain Chest pain Fall Chest wall pain Shortness of breath on exertion LFTs abnormal TSH elevation Poorly controlled type 2 diabetes mellitus Abscess Cholelithiasis Colon cancer screening Umbilical hernia Hypogonadism in male Hypertension GERD (gastroesophageal reflux disease) Surgical History History of esophagogastroduodenoscopy (EGD) Hx of colonoscopy Laryngeal polyp Hx of LASIK History of appendectomy Family History Father Heart attack Mother No problems noted. Sister No problems noted. Daughter No problems noted. Maternal Grandmother Ovarian cancer Paternal Grandfather Heart attack Paternal Uncle Alcohol abuse Other Mental health disorder Substance use disorder Social History Housing: House Alcohol intake: former Year quit: 2013 Comment: once a month 1 bottle Patient Tobacco Use Status: Former Tobacco user Tobacco use type: Cigarette Years Smoked: 25+/- 2016 e-Cigarette/Vaping Use: Never Used Second Hand Smoke Exposure: No service: No Current occupational status: employed Cognitive needs: No Hearing needs: No Vision needs: Yes Physical Exam Vital Signs: Last Vital Signs Pulse 89 03/19/25 15:39 BP 142/82 H 03/19/25 15:39 Pulse Ox 96 03/19/25 15:39 Oxygen Delivery Method Room Air 03/19/25 15:39 BMI result Body Mass Index 42.4 Absence of Cushingoid features. Absence of acromegalic features. Neck exam reveals nl size thyroid about 15 gms. No thyroid nodules palpable. No carotid bruits present. Lungs CTA. Heart S1 S2, Reg R/R. No M/R/ G. Skin exam reveals absence of vitiligo or acanthosis nigricans. Abdominal exam reveals Soft NT/ND with NA BS. No organomegaly present. Neck Other: . Extrem Other: Visual exam of foot performed. 2 + EDEMA ANLES No ulcerations or open lesions. No onchomycosis, no callouses.Pulses 2 + distally Sensation intact to monofilament exam. Vibratory sensation sensed is DECREASED with 128 Hz tuning fork Results Reviewed Results Reviewed: Laboratory Last Values Glucose (Clinic) 172 mg/dL (60-115) H 03/19/25 15:48 Assessment & Plan Assessment & Plan (1) Type 2 diabetes mellitus with hyperglycemia: Code(s): E11.65 - Type 2 diabetes mellitus with hyperglycemia Category: Medical Qualifiers: Diabetes mellitus snf insulin use: without snf use Qualified Code(s): E11.65 - Type 2 diabetes mellitus with hyperglycemia Plan: This is a 49-year-old white male with a history of type 2 diabetes being treated with metformin and Mounjaro with poor glycemic control and macrovascular complications namely microalbuminuria Plan is to reinitate Marysol 3 today. If pattern of hyperglycemia persists, could initiate basal insulin . Recheck Lipid profile . Can also revisit the Jardiance for renal protection in future. Coding Level of Care Code Est Pt Level 4 (48966) Diagnoses Type 2 diabetes mellitus with hyperglycemia, without long-term current use of insulin E11.65 Diabetes mellitus snf insulin use: without snf use
[2025-03-19 15:39] VITALS: BP 142/82; PULSE 89; O2SAT 96; BMI 42.4
[2025-03-19 15:52] LABS: Glucose, Whole Blood 172 mg/dL (60-115)
--- OUTSIDE RECORDS SUMMARY | 2025-03-20 03:39 | XMS_ITS | Continuity of Care Document ---
Author Organization [facility] [address] [place] [address] Phone [phone] Social History Type Date Description Comments Sex Male Sex Unknown Medical Devices Description No Information Available Encounters Description No Information Available Assessments Description No Information Available Plan of Treatment No Information Available Functional Status Description No Information Available Mental Status Description No Information Available Referrals Description No Information Available
== END 2025-03-19 16:12 | disposition home or self-care (01) ==
LOC: HO.ENCR 15:05
PROVIDERS: PCP Internal Medicine; Visit Provider Internal Medicine Endocrinology, Diabetes & Metabolism
DX: E11.65 Type 2 diabetes mellitus with hyperglycemia (principal)
CPT/HCPCS: 99214

== ENCOUNTER 2025-03-19 15:04 | Outpatient (AMB) | payer OTHER, SELFPAY ==
--- NOTE | 2025-03-19 15:26 | A.OFFVIS_ITS ---
Intake Intake Visit Reasons: 60 mins Thread Marker Required: No Accompanied by: Self / Same As Patient Allergies Iodinated Contrast Media Allergy (Mild, Verified 03/19/25 15:45) Abdominal Pain Penicillins Allergy (Mild, Verified 03/19/25 15:45) [facility] Adverse Reaction (Intermediate, Verified 03/19/25 15:45) sob HPI Comprehensive Diabetes Asmnt Most Recent Diabetes Results: Creatinine, (0.5-1.4) 0.66 mg/dL 03/17/25 BUN, (9-16) 21 mg/dL H 03/17/25 Sodium, (135-145) 136 mmol/L 03/17/25 Potassium, (3.3-5.1) 4.4 mmol/L 03/17/25 Chloride, (96-108) 102 mmol/L 03/17/25 Carbon Dioxide, (22-29) 27 mmol/L 03/17/25 Calcium, (8.4-10.2) 10.3 mg/dL H Δ 03/17/25 [facility] Medical History (Updated 03/17/25 @ 21:37 by Jason Willis MD) Asthma-COPD overlap syndrome Polycythemia IZABELLA (obstructive sleep apnea) Hypoxia Dyspnea Esophagitis Gastritis Asthma Back pain Chest pain Fall Chest wall pain Shortness of breath on exertion LFTs abnormal TSH elevation Poorly controlled type 2 diabetes mellitus Abscess Cholelithiasis Colon cancer screening Umbilical hernia Hypogonadism in male Obesity Hypertension GERD (gastroesophageal reflux disease) Surgical History History of esophagogastroduodenoscopy (EGD) Hx of colonoscopy Laryngeal polyp Hx of LASIK History of appendectomy Family History Father Heart attack Mother No problems noted. Sister No problems noted. Daughter No problems noted. Maternal Grandmother Ovarian cancer Paternal Grandfather Heart attack Paternal Uncle Alcohol abuse Other Mental health disorder Substance use disorder Social History Housing: House Alcohol intake: former Year quit: 2013 Comment: once a month 1 bottle Patient Tobacco Use Status: Former Tobacco user Tobacco use type: Cigarette Years Smoked: 25+/- 2016 e-Cigarette/Vaping Use: Never Used Second Hand Smoke Exposure: No service: No Current occupational status: employed Cognitive needs: No Hearing needs: No Vision needs: Yes Assessment & Plan Assessment & Plan (1) Type 2 diabetes mellitus with hyperglycemia: Code(s): E11.65 - Type 2 diabetes mellitus with hyperglycemia Qualifiers: Diabetes mellitus [facility] insulin use: without [facility] use Qualified Code(s): E11.65 - Type 2 diabetes mellitus with hyperglycemia Plan: Learning objectives: WaysGo Username: Pt's emails WaysGo password: [email or web address] The patient was provided with verbal and written education on the following topics as outlined below. Assess patient education level/literacy/barriers, patient is not due for another A1c till 04/16/2025. He was unable to make appointment 2 weeks ago for sensor placement so we placed sensor today. Sensor placed in the back of patient's right arm. Patient left visit with sensor in warmup Patient has follow-up visit with Dr. Montanez after today's education visit Patient reports he has titrated Mounjaro dose up to 7.5 mg weekly, reports he has occasional diarrhea but he is not sure it is attributed to Mounjaro Recommended to patient he try and eat low-fat smaller meals to reduce GI side effects Patient continues metformin 1000 mg b.i.d. The patient met all learning objectives and was able to verbalize understanding and provide teach back of education topics discussed . The patient was provided with the opportunity to ask questions and all questions were answered. Topics covered in today?s session included: Medications (If applicable) * Name of medication? * Dosing/administration instructions? * Mechanism of action? * Potential side effects? * Potential adverse reaction and appropriate treatment? * Review onset, peak, duration Assess for concerns re: insurance coverage, cost, barriers to compliance Insulin/Injectables (If applicable) * Storage/care of insulin?? * Injection sites? * Site rotation? * Onset, peak, duration * Drawing up insulin? * Injecting insulin/other injectables? * Sharps disposal Continuous blood glucose monitoring (if applicable) Hypoglycemia and Hyperglycemia * Signs and symptoms? * Causes?? * Treatment? * Preventing hypoglycemia? * When to seek medical attention Target Goals: * Blood glucose targets and how you feel when your blood glucose is in and out of your target ranges. * Monitoring and knowing your A1C. * What can make blood glucose go up and down and preventing high and low blood glucose. * Review of blood sugar targets in expected goal range and outside of expected goal range. * Problem solving and preventing hyper/hypoglycemia. * Sick day management of diabetes. * Using blood sugar results in decision making process in managing diabetes. ?Patient was receptive to information provided and participated in the discussion. Asked?appropriate questions and demonstrated good understanding of the topics discussed.? ? Educational Materials: The patient was provided with the following written educational materials: Target Goal handout Patient Response to instructions: Comprehension of Instructions: Fair Readiness to make changes:? Contemplation How confident they feel about making changes: Fair Portions of this note were created using voice recognition software, please excuse any words or phrases that may have been misinterpreted. Patient Instructions: Patient will follow-up with engine tester 2 weeks prior to next provider appointment for sample CGM placement Coding Level of Care Code Est Pt Level 1 (49145) Diagnoses Type 2 diabetes mellitus with hyperglycemia, without long-term current use of insulin E11.65 Diabetes mellitus [facility] insulin use: without regional intermodal truck driver use
== END 2025-03-19 16:15 | disposition home or self-care (01) ==
LOC: HO.ENCR 15:06
PROVIDERS: Visit Provider Registered Nurse Diabetes Educator
DX: E11.65 Type 2 diabetes mellitus with hyperglycemia (principal)

== ENCOUNTER → 2025-03-19 15:04 | Outpatient (BNVA) | payer OTHER, SELFPAY | PROVIDERS: PCP Internal Medicine; Visit Provider Internal Medicine Endocrinology, Diabetes & Metabolism | DX: E11.65 Type 2 diabetes mellitus with hyperglycemia (principal); Z71.89 Other specified counseling | CPT/HCPCS: 82947; 99211; 99212 ==

== ENCOUNTER 2025-03-26 14:29 | Outpatient (AMB) | payer OTHER, SELFPAY ==
--- NOTE | 2025-03-26 14:32 | MHC.OFFVIS ---
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 Allergies Iodinated Contrast Media Allergy (Mild, Verified 03/19/25 15:45) Abdominal Pain Penicillins Allergy (Mild, Verified 03/19/25 15:45) Hives dulaglutide (From [facility]) Adverse Reaction (Intermediate, Verified 03/19/25 15:45) sob Medication List - Last Reconciled 03/26/25 by Jose Cruz Harris MD albuterol sulfate 90 mcg/actuation (Ventolin HFA) 2 puffs PO Q6H PRN atorvastatin (Lipitor) 10 mg PO BEDTIME azelastine 2 sprays intranasal BID blood sugar diagnostic (Contour Plus Test Strip) To measure blood glucose 4-6 times per day blood-glucose meter (Contour Plus Blue Meter) To measure blood glucose 4-6 times per day blood-glucose sensor (MoblicoStyle Marysol 3 Sensor device) As directed blood-glucose,pointer machine operator,cont (FreeStyle Marysol 3 [place]) As directed buspirone 40 mg (4 x 10 mg) PO DAILY 30 days clotrimazole 1% topical diazepam 5 mg PO DAILY PRN docusate sodium 100 mg PO BEDTIME xlwbsflrzjz-qidwtqwju-mdjfcdew 100-62.5-25 mcg (Trelegy Ellipta) 1 inh inhalation DAILY 30 days glipizide 10 mg PO BID lisinopril 10 mg PO DAILY metformin 1,000 mg (2 x 500 mg) PO BID 90 days milk thistle 150 mg PO BID needle (disp) 18 G (BD Regular [place]vel [place]) As directed - draw up testosterone pantoprazole 20 mg PO DAILY pen needle, diabetic (BD Ultra-Fine Mini Pen Needle) As directed once a week for ozempic polyethylene glycol 3350 (Gavilax) 17 grams PO DAILY sennosides (senna) 17.2 mg (2 x 8.6 mg) PO BEDTIME syringe (disposable) (BD Luer-Savi Syringe) Testosterone injection weekly tadalafil 10 mg PO DAILY 90 days testosterone cypionate (Depo-Testosterone) 120 mg (0.6 mL) subcut QWEEK 4 weeks tirzepatide (Mounjaro) 7.5 mg (0.5 mL) subcut QWEEK HPI Comments Details: The patient is a 49 year old individual presenting for preoperative cardiac evaluation for an upcoming colonoscopy. The patient reports a long-standing history of shortness of breath on exertion, such as walking to the car, which has recently worsened. The patient denies any chest pain, chest heaviness, jaw pain, or left arm pain. The patient's past medical history is significant for type 2 diabetes, for which the patient started Mounjaro about 2.5 months ago and has since lost some weight. The patient also has hypertension and was recently started on a statin for high cholesterol approximately three weeks ago. There is a history of asthma, though it has not been problematic for years, and a history of smoking, having quit seven years ago. Previous cardiac workup includes a treadmill stress test 3 years ago and an echocardiogram in January. The patient reports a possible allergic reaction to IV dye a long time ago, which caused nausea and vomiting. However, he isn't sure if it was for a CT or MRI. [facility] Medical History (Updated 03/26/25 @ 15:04 by Jose Cruz Harris MD) Obesity Asthma-COPD overlap syndrome Polycythemia IZABELLA (obstructive sleep apnea) Hypoxia Dyspnea Esophagitis Gastritis Asthma Back pain Chest pain Fall Chest wall pain Shortness of breath on exertion LFTs abnormal TSH elevation Poorly controlled type 2 diabetes mellitus Abscess Cholelithiasis Colon cancer screening Umbilical hernia Hypogonadism in male Hypertension GERD (gastroesophageal reflux disease) Surgical History History of esophagogastroduodenoscopy (EGD) Hx of colonoscopy Laryngeal polyp Hx of LASIK History of appendectomy Family History Father Heart attack Mother No problems noted. Sister No problems noted. Daughter No problems noted. Maternal Grandmother Ovarian cancer Paternal Grandfather Heart attack Paternal Uncle Alcohol abuse Other Mental health disorder Substance use disorder Social History Housing: House Alcohol intake: former Year quit: 2013 Comment: once a month 1 bottle Patient Tobacco Use Status: Former Tobacco user Tobacco use type: Cigarette Years Smoked: +/- 2016 e-Cigarette/Vaping Use: Never Used Second Hand Smoke Exposure: No service: No Current occupational status: employed Cognitive needs: No Hearing needs: No Vision needs: Yes Review of Systems Const Denies weakness ENT Denies dizziness Card Reports chest pain, Denies chest pain with activity, Denies syncope, Denies rapid heart rate, Denies pedal edema, Denies edema, Denies leg edema, Denies lightheadedness, Reports palpitations, Reports dyspnea, Reports dyspnea on exertion and Denies orthopnea Resp Denies cough, Reports dyspnea and Reports dyspnea on exertion GI Denies hematochezia and Denies change in stool character Musc Denies abnormal gait, Reports joint swelling, Denies muscle cramps, Denies muscle weakness, Denies numbness, Denies radiating pain into limb and Denies tingling Neuro Denies abnormal gait, Denies dizziness, Denies syncope, Denies numbness, Denies tingling and Denies weakness Endo Reports palpitations Physical Exam Vital Signs: Last Vital Signs Pulse 99 03/26/25 14:33 BP 132/78 03/26/25 14:33 BMI result Body Mass Index 41.5 Const General: comfortable and no acute distress Orientation/consciousness: patient oriented x3 HEENT Other: Unremarkable Head: Yes normal to inspection Neck Neck: Yes normal visual inspection Chest Chest palpation & inspection: normal inspection of the chest Resp Auscultation: wheezes and diminished lung sounds Cardio Palpation: normal PMI Heart sounds: S1 normal heart sound present, S2 normal heart sound present, no gallops, no murmurs and no rubs GI Palpation (GI): Soft to palpation Back/Spine/Pelvis Other: unremarkable Skin General skin exam: no rashes or lesions noted Neuro General: patient oriented x3 Extrem General: Yes normal to inspection Psych Mental Status: mental status grossly normal Office Procedures EKG Details: EKG with underlying sinus rhythm at 99/Min; rightward axis; nonspecific ST-[place] changes; [place] [address]-Iaokcqhivthhkuhlb, Complete Assessment & Plan Assessment & Plan (1) Preoperative cardiovascular examination: Code(s): Z01.810 - Encounter for preprocedural cardiovascular examination Category: Medical (2) Former smoker: Code(s): Z87.891 - Personal history of nicotine dependence Category: Social Hx (3) Dyspnea on exertion: Code(s): R06.09 - Other forms of dyspnea Category: Medical (4) Type 2 diabetes mellitus with hyperglycemia: Code(s): E11.65 - Type 2 diabetes mellitus with hyperglycemia Category: Medical Qualifiers: Diabetes mellitus intermediate insulin use: without termite control servicer use Qualified Code(s): E11.65 - Type 2 diabetes mellitus with hyperglycemia (5) Hypertension: Code(s): I10 - Essential (primary) hypertension Category: Medical (6) Hypercholesterolemia: Code(s): E78.00 - Pure hypercholesterolemia, unspecified Category: Medical (7) Obesity: Code(s): E66.9 - Obesity, unspecified Category: Medical Plan 1. Pre-operative Evaluation / Coronary Artery Disease Risk The patient has multiple cardiovascular risk factors, including type 2 diabetes, hypertension, hypercholesterolemia, obesity, and a history of smoking, warranting a cardiac evaluation to rule out blockages prior to the scheduled colonoscopy. The complaint of worsening exertional dyspnea is also concerning. While a treadmill stress test was normal three years ago, an updated assessment is needed. A chemical stress test is contraindicated due to wheezing noted on exam. The patient reported a past reaction of nausea and vomiting to IV contrast, which is unlikely a true allergy. The plan is to proceed with a cardiac CT angiogram with premedication to prevent a reaction. This will be scheduled at the [facility]. 2. Hypoxia, Dyspnea, and Wheezing The patient's low oxygen saturation and dyspnea are likely secondary to an underlying pulmonary condition, such as COPD or emphysema, given the history of smoking and wheezing on exam. A cardiac etiology is less likely but will be evaluated with the planned CT angiogram. [id number] 61%. Normal diastolic function. No significant valvular findings. Myocardial perfusion imaging [id number] perfusion. He was able to exercise for 7.2 METS on Luis protocol and reached target heart rate. Possible ischemic changes on the EKG part. Cardiac BNP-21 (normal). Discussion Notes I explained to the patient that the low oxygen levels and shortness of breath are most likely related to a lung condition, such as COPD or emphysema, given the history of smoking and wheezing. However, due to multiple risk factors for heart disease including diabetes, high blood pressure, high cholesterol, and a history of smoking, I advised that we must ensure there are no cardiac blockages. We discussed diagnostic options, including a CT scan of the heart arteries, which I recommended. The patient reported a past reaction to IV dye involving nausea and vomiting; I explained this is not characteristic of a true allergy, but to be safe, I could provide medication to prevent such a reaction. I noted that a chemical stress test would not be a good option because the medication used can worsen wheezing. The patient agreed to proceed with the CT scan with pre-medication, which will be scheduled at the [facility] facility. Patient was informed and verbally consented to the use of an ambient scribe for clinic note documentation during this visit. Patient Instructions: - We will schedule a CT scan of your heart to check for any blockages before your colonoscopy. - To prevent the feeling of nausea you had with a past scan, I will give you medication to take before the CT scan. - The CT scan will be scheduled at the [facility] facility, and their staff will call you to arrange the appointment. Coding Level of Care Code New Pt Level 4 (24192) Complex visit Add On G2211 Diagnoses Preoperative cardiovascular examination Z01.810 Former smoker Z87.891 Dyspnea on exertion R06.09 Type 2 diabetes mellitus with hyperglycemia, without long-term current use of insulin E11.65 Diabetes mellitus intermediate insulin use: without termite control servicer use Hypertension I10 Hypercholesterolemia E78.00 Obesity E66.9 CPT Codes EKG - CPT: 94086-Mbvkcuggyxdrspzaf, Complete ([id number])
[2025-03-26 14:33] VITALS: BP 132/78; PULSE 99; BMI 41.5
--- OUTSIDE RECORDS SUMMARY | 2025-03-26 17:18 | XMS_ITS | Continuity of Care Document ---
Author Organization [facility] [address] [place] [address] Phone [phone] Social History Type Date Description Comments Sex Male Sex Unknown Medical Devices Description No Information Available Encounters Description No Information Available Assessments Description No Information Available Plan of Treatment No Information Available Functional Status Description No Information Available Mental Status Description No Information Available Referrals Description No Information Available
== END 2025-03-26 14:58 | disposition home or self-care (01) ==
LOC: HO.HCS 14:30
PROVIDERS: PCP Internal Medicine; Visit Provider Internal Medicine
DX: Z01.810 Encounter for preprocedural cardiovascular examination (principal); Z87.891 Personal history of nicotine dependence; R06.09 Other forms of dyspnea; E11.65 Type 2 diabetes mellitus with hyperglycemia; I10 Essential (primary) hypertension; E78.00 Pure hypercholesterolemia, unspecified; E66.9 Obesity, unspecified
CPT/HCPCS: 93010; 99214

== ENCOUNTER → 2025-03-26 14:29 | Outpatient (BNVA) | payer OTHER, SELFPAY | PROVIDERS: PCP Internal Medicine; Visit Provider Internal Medicine | DX: Z01.810 Encounter for preprocedural cardiovascular examination (principal); E11.65 Type 2 diabetes mellitus with hyperglycemia; R06.09 Other forms of dyspnea; I10 Essential (primary) hypertension; E78.00 Pure hypercholesterolemia, unspecified; E66.9 Obesity, unspecified; Z87.891 Personal history of nicotine dependence; Z68.41 Body mass index [BMI] 40.0-44.9, adult | CPT/HCPCS: 93005; 99212 ==

== ENCOUNTER 2025-04-02 13:42 | Outpatient (AMB) | payer OTHER, SELFPAY ==
--- NOTE | 2025-04-02 13:44 | MHC.AMNUTRGE ---
VS Expanded 04/02/25 13:49 04/02/25 14:15 Height 5 ft 11 in 5 ft 11 in Weight 300 lb 300 lb BMI 41.8 41.8 Intake Visit Reasons: Type 2 diabetes mellitus with hyperglycemia Allergies Iodinated Contrast Media Allergy (Mild, Verified 03/19/25 15:45) Abdominal Pain Penicillins Allergy (Mild, Verified 03/19/25 15:45) [facility] Adverse Reaction (Intermediate, Verified 03/19/25 15:45) sob Nutrition Presentation Details: Patient presents for medical nutrition before type 2 diabetes Patient reports working on reducing sweets and sugar intake. Patient reports he is trying to incorporate or focus on protein foods. Typical meal intake Fruits 1-2 a day Veggies not including the on Dairy 1-2 per day Protein food > than 150 g per day Beverages: Patient reports mindful eat choosing low sugar beverages Reports most meals are restaurant he meals, fast food meals Physical activity: Currently keeping sedentary Alcohol/smoking:- BS Monitoring Most Recent Diabetes Results: Creatinine, (0.5-1.4) 0.66 mg/dL 03/17/25 BUN, (9-16) 21 mg/dL H 03/17/25 Sodium, (135-145) 136 mmol/L 03/17/25 Potassium, (3.3-5.1) 4.4 mmol/L 03/17/25 Chloride, (96-108) 102 mmol/L 03/17/25 Carbon Dioxide, (22-29) 27 mmol/L 03/17/25 Calcium, (8.4-10.2) 10.3 mg/dL H Δ 03/17/25 LAY-Dlhjqsl-Kt.Jeor Equation Height: 5 ft 11 in Weight: 300 lb Resting Metabolic Rate: 2250.46 Calculated Activity Level: Sedentary Calories Needed to Maintain Weight: 2700.55 Diagnosis Nutrition problem #1: excessive energy intake and food nutri know defi As related to (etiology) #1: diagnosis and physical inactivity As evidenced by (sign/symptom) #1: knowledge deficit of diet [facility] Medical History (Updated 03/26/25 @ 15:04 by Jose Cruz Harris MD) Obesity Asthma-COPD overlap syndrome Polycythemia IZABELLA (obstructive sleep apnea) Hypoxia Dyspnea Esophagitis Gastritis Asthma Back pain Chest pain Fall Chest wall pain Shortness of breath on exertion LFTs abnormal TSH elevation Poorly controlled type 2 diabetes mellitus Abscess Cholelithiasis Colon cancer screening Umbilical hernia Hypogonadism in male Hypertension GERD (gastroesophageal reflux disease) Surgical History History of esophagogastroduodenoscopy (EGD) Hx of colonoscopy Laryngeal polyp Hx of LASIK History of appendectomy Family History Father Heart attack Mother No problems noted. Sister No problems noted. Daughter No problems noted. Maternal Grandmother Ovarian cancer Paternal Grandfather Heart attack Paternal Uncle Alcohol abuse Other Mental health disorder Substance use disorder Social History Housing: House Alcohol intake: former Year quit: 2013 Comment: once a month 1 bottle Patient Tobacco Use Status: Former Tobacco user Tobacco use type: Cigarette Years Smoked: +/- 2016 e-Cigarette/Vaping Use: Never Used Second Hand Smoke Exposure: No service: No Current occupational status: employed Cognitive needs: No Hearing needs: No Vision needs: Yes Assessment & Plan Assessment & Plan (1) Type 2 diabetes mellitus with hyperglycemia: Code(s): E11.65 - Type 2 diabetes mellitus with hyperglycemia Category: Medical Qualifiers: Diabetes mellitus skilled nursing insulin use: without termite exterminator use Qualified Code(s): E11.65 - Type 2 diabetes mellitus with hyperglycemia Plan: current wt: 136kg ( March, ) est kcal needs as per MSJ: 2700 est protein needs as per 1 g/kg BW: 140 est fluid needs as per 30 ml/kg BW: 4000 Recommended fiber > 12 g /day and gradually increase up to 25-28 g /day or as tolerated Recommended sodium intake: Less than 2300 mg per day unless otherwise specified by Nutrition topics discussed : Reviewed (R), Pt verbalized understanding (V) , not applicable (N/A) R, : Healthy Plate Method Concept: Reviewed benefits of fiber rich foods in the diet including but not limited to glucose control, healthy gut microbiome, weight loss, low cholesterol R, V, N/A: Carbohydrates: food sources of carbohydrates, relationship of carbohydrates to blood glucose, fatty liver GI health. Recommended total amount of carbohydrates per meals and snack. Differences between simple carbohydrates and complex carbohydrates R, : Lean protein foods including vegan , vegetarian sources of protein. Benefits of protein (including but not limited to healing, nutritional value , benefits in weight loss, glucose control . Adequate portion size also reviewed R, V, N/A: Fats : Source of fats, benefits of fats. Difference between saturated and unsaturated fats. Saturated fats and its contribution to inflammation R, V, N/A: Fiber: food sources and role of fiber in the diet (including but not limited to its role as a prebiotic, benefits in constipation, role in IBS , role in glucose control and cholesterol level) R, : Hydration: role of hydration and prevention of dehydration or over hydration. Foods and water content. R, V, N/A: Vitamins and Minerals in foods and supplements R, V, N/A: Interpreting food labels, including serving size, macronutrients, vitamins, minerals, allergens, ingredient list , % daily value Medications: Discontinued blood sugar diagnostic (Contour Plus Test Strip) Discontinued Reason: Doctor's Order To measure blood glucose 4-6 times per day 100 ea 3RF nderkzfimje-nxqttbldw-uybkbjtg 100-62.5-25 mcg (Trelegy Ellipta) Discontinued Reason: Doctor's Order 1 inh inhalation DAILY 30 days 60 ea 11RF J44.9 - Chronic obstructive pulmonary disease, unspecified Patient Instructions: Choose low-fat food options and include fiber rich foods in your diet- see meal ideas discussed and written Coding Level of Care Code Nutr Indiv Intake (65469) Diagnoses Type 2 diabetes mellitus with hyperglycemia, without long-term current use of insulin E11.65 Diabetes mellitus termite exterminator insulin use: without skilled nursing use Time Spent (min) 30
[2025-04-02 13:49] VITALS: BMI 41.8
[2025-04-02 14:15] VITALS: BMI 41.8
--- OUTSIDE RECORDS SUMMARY | 2025-04-02 16:20 | XMS_ITS | Continuity of Care Document ---
Author Organization [facility] Address [address] [place] [address] Phone [phone] Social History Type Date Description Comments Sex Male Sex Unknown Medical Devices Description No Information Available Encounters Description No Information Available Assessments Description No Information Available Plan of Treatment No Information Available Functional Status Description No Information Available Mental Status Description No Information Available Referrals Description No Information Available
== END 2025-04-02 14:41 | disposition home or self-care (01) ==
LOC: HO.ENCR 13:43
PROVIDERS: PCP Internal Medicine; Visit Provider Dietitian, Registered
DX: E11.65 Type 2 diabetes mellitus with hyperglycemia (principal)

== ENCOUNTER → 2025-04-02 13:42 | Outpatient (BNVA) | payer OTHER, SELFPAY | PROVIDERS: PCP Internal Medicine; Visit Provider Dietitian, Registered | DX: E11.65 Type 2 diabetes mellitus with hyperglycemia (principal) | CPT/HCPCS: 97802 ==

== ENCOUNTER 2025-04-16 15:25 | Outpatient (AMB) | payer OTHER, SELFPAY ==
[2025-04-16 15:29] VITALS: BP 128/86; PULSE 99; O2SAT 97; BMI 41.5
--- NOTE | 2025-04-16 15:29 | A.OFFVIS_ITS ---
Vital Signs 04/16/25 15:29 Height 5 ft 11 in Weight 297 lb 9.985 oz BMI 41.5 BP 128/86 Blood Pressure Location Lt brachial Position Sitting Pulse 99 Pulse Source Pulse Oximeter Pulse Oximetry (%) 97 Oxygen Delivery Method Room Air Intake Visit Reasons: Type 2 diabetes mellitus without complications Intake Note: Patient present today for T2DM Last Diabetic Eye exam: Less than 1 year [facility] Last Podiatry Visit: 03/2025 [facility] Podiatry Random Glucose: 147 mg/dl Hgb A1C: 6.4% Shuttlecock Assembler Required: No Accompanied by: Self / Same As Patient Allergies Iodinated Contrast Media Allergy (Mild, Verified 04/16/25 15:35) Abdominal Pain Penicillins Allergy (Mild, Verified 04/16/25 15:35) Hives dulaglutide (From [facility]) Adverse Reaction (Intermediate, Verified 04/16/25 15:35) sob Medication List - Last Reconciled 04/16/25 by Kervin Montanez MD albuterol sulfate 90 mcg/actuation (Ventolin HFA) 2 puffs PO Q6H PRN atorvastatin (Lipitor) 10 mg PO BEDTIME azelastine 2 sprays intranasal BID blood sugar diagnostic (FreeStyle Lite Strips) As directed checks 3 times a day blood-glucose meter (Contour Plus Blue Meter) To measure blood glucose 4-6 times per day blood-glucose meter (FreeStyle Lite Meter kit) As directed blood-glucose sensor (FreeStyle Marysol 3 Sensor device) As directed blood-glucose,railroad operator,cont (FreeStyle Marysol 3 [place]) As directed buspirone 40 mg (4 x 10 mg) PO DAILY 30 days cetirizine 10 mg PO DAILY PRN clotrimazole 1% topical diazepam 5 mg PO DAILY PRN docusate sodium 100 mg PO BEDTIME fluticasone furoate-vilanterol 200-25 mcg/dose (Breo Ellipta) 1 inh inhalation DAILY 30 days glipizide 10 mg PO BID lancets (FreeStyle Lancets) As directed checks 3 times a day lisinopril 10 mg PO DAILY metformin 1,000 mg (2 x 500 mg) PO BID 90 days methylprednisolone (Medrol) 32 mg (2 x 16 mg) PO DAILY milk thistle 150 mg PO BID needle (disp) 18 G (BD Regular [place]vel [place]) As directed - draw up testosterone pantoprazole 20 mg PO DAILY pen needle, diabetic (BD Ultra-Fine Mini Pen Needle) As directed once a week for ozempic polyethylene glycol 3350 (Gavilax) 17 grams PO DAILY sennosides (senna) 17.2 mg (2 x 8.6 mg) PO BEDTIME syringe (disposable) (BD Luer-Savi Syringe) Testosterone injection weekly tadalafil 10 mg PO DAILY 90 days testosterone cypionate (Depo-Testosterone) 120 mg (0.6 mL) subcut QWEEK 4 weeks tirzepatide (Mounjaro) 10 mg (0.5 mL) subcut QWEEK umeclidinium 62.5 mcg/actuation (Incruse Ellipta) 1 inh inhalation DAILY 30 days HPI Comments Details: 49 YO M who is seen in consultation for T2DM at the request of PCP. Initially diagnosed with T2DM in 14 yrs ago . Was initially started on treatment with metformin 1000 mg B.i.d. and Mounjaro 10 mg q wkly . Glipizide 10mg BID. Had to stop Jardiance because had yeast infection Marysol download shows he is using the sensor 98% of the time. Average glucose is 133 with G mi of 6.5% and variability 25% for 94% of the glucoses are in target range but 6% hyperglycemia and no hypoglycemia Rare hypoglycemia Has eyes checked yearly, last eye exam , denies retinopathy. needs to make appt Has neuropathy, l sees podiatry saw 2 wks ago Denies nephropathy, on CHAVO/ARB. Has HLD, Not on statin. Denies CAD. Not Had diabetes education. [facility] Medical History (Updated 03/26/25 @ 15:04 by Jose Cruz Harris MD) Obesity Asthma-COPD overlap syndrome Polycythemia IZABELLA (obstructive sleep apnea) Hypoxia Dyspnea Esophagitis Gastritis Asthma Back pain Chest pain Fall Chest wall pain Shortness of breath on exertion LFTs abnormal TSH elevation Poorly controlled type 2 diabetes mellitus Abscess Cholelithiasis Colon cancer screening Umbilical hernia Hypogonadism in male Hypertension GERD (gastroesophageal reflux disease) Surgical History History of esophagogastroduodenoscopy (EGD) Hx of colonoscopy Laryngeal polyp Hx of LASIK History of appendectomy Family History Father Heart attack Mother No problems noted. Sister No problems noted. Daughter No problems noted. Maternal Grandmother Ovarian cancer Paternal Grandfather Heart attack Paternal Uncle Alcohol abuse Other Mental health disorder Substance use disorder Social History Housing: House Alcohol intake: former Year quit: 2013 Comment: once a month 1 bottle Patient Tobacco Use Status: Former Tobacco user Tobacco use type: Cigarette Years Smoked: /- 2016 e-Cigarette/Vaping Use: Never Used Second Hand Smoke Exposure: No service: No Current occupational status: employed Cognitive needs: No Hearing needs: No Vision needs: Yes Physical Exam Vital Signs: Last Vital Signs Pulse 99 04/16/25 15:29 BP 128/86 04/16/25 15:29 Pulse Ox 97 04/16/25 15:29 Oxygen Delivery Method Room Air 04/16/25 15:29 BMI result Body Mass Index 41.5 Absence of Cushingoid features. Absence of acromegalic features. Neck exam reveals nl size thyroid about 15 gms. No thyroid nodules palpable. No carotid bruits present. Lungs CTA. Heart S1 S2, Reg R/R. No M/R/ G. Skin exam reveals absence of vitiligo or acanthosis nigricans. Abdominal exam reveals Soft NT/ND with NA BS. No organomegaly present. Neck Other: . Extrem Other: Visual exam of foot performed. 2 + EDEMA ANLES No ulcerations or open lesions. No onchomycosis, no callouses.Pulses 2 + distally Sensation intact to monofilament exam. Vibratory sensation sensed is DECREASED with 128 Hz tuning fork Results AMB Hemoglobin A1c AMB Hemoglobin A1c 6.4 % Last Edit by CHRISTINE Flor on 04/16/25 15:54 Results Reviewed Results Reviewed: Laboratory Last Values Glucose (Clinic) 147 mg/dL (60-115) H 04/16/25 15:37 Hgb A1c (Clinic) 6.4 % (4.0-6.0) H 04/16/25 15:39 Assessment & Plan Assessment & Plan (1) Type 2 diabetes mellitus with hyperglycemia: Code(s): E11.65 - Type 2 diabetes mellitus with hyperglycemia Category: Medical Qualifiers: Diabetes mellitus superintendent terminal insulin use: without superintendent terminal use Qualified Code(s): E11.65 - Type 2 diabetes mellitus with hyperglycemia Plan: This is a 49-year-old white male with a history of type 2 diabetes being treated with metformin and Mounjaro with excellent improved glycemic control and macrovascular complications namely microalbuminuria Plan is to continue the glipizide and start Jardiance 10 mg q.d.. We will check basic metabolic panel in 10 days. . Recheck Lipid profile . Went over the side effects of Jardiance including but not limited to DKA and Jaguar's gangrene Orders: Orders Basic Metabolic Panel 10 Days E11.65 - Type 2 diabetes mellitus with hyperglycemia AMB Hemoglobin A1c Today E11.65 - Type 2 diabetes mellitus with hyperglycemia, Z13.9 - Encounter for screening, unspecified Medications: New empagliflozin (Jardiance) 10 mg PO DAILY 30 tabs 5RF Coding Level of Care Code Est Pt Level 4 (01372) Add On Problem Visit Only Diagnoses Type 2 diabetes mellitus with hyperglycemia, without long-term current use of insulin E11.65 Diabetes mellitus fpc insulin use: without superintendent terminal use
[2025-04-16 15:42] LABS: Glucose, Whole Blood 147 mg/dL (60-115)
== END 2025-04-16 16:22 | disposition home or self-care (01) ==
LOC: HO.ENCR 15:26
PROVIDERS: Visit Provider Internal Medicine Endocrinology, Diabetes & Metabolism
DX: Z13.9 Encounter for screening, unspecified (principal); E11.65 Type 2 diabetes mellitus with hyperglycemia
CPT/HCPCS: 99214

== ENCOUNTER 2025-04-16 15:25 | Outpatient (AMB) | payer OTHER, SELFPAY ==
--- NOTE | 2025-04-16 16:19 | MHC.AMDMED ---
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 Required: No Accompanied by: Self / Same As Patient Allergies Iodinated Contrast Media Allergy (Mild, Verified 04/16/25 15:35) Abdominal Pain Penicillins Allergy (Mild, Verified 04/16/25 15:35) Hives dulaglutide (From [facility]) Adverse Reaction (Intermediate, Verified 04/16/25 15:35) sob HPI Comprehensive Diabetes Asmnt Most Recent Diabetes Results: Microalb/Creat Ratio, (<30) 222.6 ug/mg cr H 01/15/25 Cholesterol, (<200) 211 mg/dL H 02/26/24 HDL Cholesterol, (>40) 54 mg/dL 02/26/24 Triglycerides, (<150) 165 mg/dL H 02/26/24 Creatinine, (0.5-1.4) 0.66 mg/dL 03/17/25 BUN, (9-16) 21 mg/dL H 03/17/25 Sodium, (135-145) 136 mmol/L 03/17/25 Potassium, (3.3-5.1) 4.4 mmol/L 03/17/25 Chloride, (96-108) 102 mmol/L 03/17/25 Carbon Dioxide, (22-29) 27 mmol/L 03/17/25 Calcium, (8.4-10.2) 10.3 mg/dL H Δ 03/17/25 AST, (5-37) 17 U/L 01/15/25 ALT, (0-40) 27 U/L 01/15/25 Total Protein, (6.5-8.0) 6.5 g/dL 01/15/25 Albumin, (3.5-5.0) 4.0 g/dL 01/15/25 [facility] Medical History (Updated 03/26/25 @ 15:04 by Jose Cruz Harris MD) Obesity Asthma-COPD overlap syndrome Polycythemia IZABELLA (obstructive sleep apnea) Hypoxia Dyspnea Esophagitis Gastritis Asthma Back pain Chest pain Fall Chest wall pain Shortness of breath on exertion LFTs abnormal TSH elevation Poorly controlled type 2 diabetes mellitus Abscess Cholelithiasis Colon cancer screening Umbilical hernia Hypogonadism in male Hypertension GERD (gastroesophageal reflux disease) Surgical History History of esophagogastroduodenoscopy (EGD) Hx of colonoscopy Laryngeal polyp Hx of LASIK History of appendectomy Family History Father Heart attack Mother No problems noted. Sister No problems noted. Daughter No problems noted. Maternal Grandmother Ovarian cancer Paternal Grandfather Heart attack Paternal Uncle Alcohol abuse Other Mental health disorder Substance use disorder Social History Housing: House Alcohol intake: former Year quit: 2013 Comment: once a month 1 bottle Patient Tobacco Use Status: Former Tobacco user Tobacco use type: Cigarette Years Smoked: /- 2016 e-Cigarette/Vaping Use: Never Used Second Hand Smoke Exposure: No service: No Current occupational status: employed Cognitive needs: No Hearing needs: No Vision needs: Yes Assessment & Plan Assessment & Plan (1) Type 2 diabetes mellitus with hyperglycemia: Code(s): E11.65 - Type 2 diabetes mellitus with hyperglycemia Qualifiers: Diabetes mellitus manager intermediate insulin use: without manager intermediate use Qualified Code(s): E11.65 - Type 2 diabetes mellitus with hyperglycemia Plan: Meter Teaching Patient's A1c 6.4% on 04/16/2025 down from 10% on 01/15/2025 Patient presents today for a nursing visit for glucometer teaching. Type of Meter:Freestyle Lite Patient Education: Patient was instructed and provided with demonstration of the following: Setting date/time Turning meter on/off Retrieving blood glucose log Handwashing Test sites Site rotation Use of lancing device Testing blood glucose Removing and disposing needle from lancing device Safe disposal of sharps Target blood sugar Signs/ symptoms/treatment of hypoglycemia/hyperglycemia Frequency of testing Patient verbalized understanding of education provided and was able to demonstrate proper use of lancing device and glucometer. Blood Glucose at time of visit: ???147 mg/dL? All questions were answered and patient was advised to contact the office with any questions or concerns Patient also had Marysol 3+ sensor place Sensor placed on the back of right arm Patient left visit with sensor in warmup Reviewed how to interpret trend arrows Discussed lag time between finger stick and sensor data.? Instructed patient the importance of having blood glucometer for backup testing if needed Reviewed delay of CGM from fingersticks Reminded Pt that if symptoms do not match sensor still needs to check fingersticks. Portions of this note were created using voice recognition software, please excuse any words or phrases that may have been misinterpreted. Coding Level of Care Code Est Pt Level 1 (25293) Diagnoses Type 2 diabetes mellitus with hyperglycemia, without long-term current use of insulin E11.65 Diabetes mellitus manager intermediate insulin use: without shelter use Results AMB Hemoglobin A1c AMB Hemoglobin A1c 6.4 % Last Edit by CHRISTINE Flor on 04/16/25 15:54
--- OUTSIDE RECORDS SUMMARY | 2025-04-16 20:23 | XMS_ITS | Continuity of Care Document ---
Author Organization [facility] [address] [place] [address] Phone [phone] Social History Type Date Description Comments Sex Male Sex Unknown Medical Devices Description No Information Available Encounters Description No Information Available Assessments Description No Information Available Plan of Treatment No Information Available Functional Status Description No Information Available Mental Status Description No Information Available Referrals Description No Information Available
--- OUTSIDE RECORDS SUMMARY | 2025-04-16 20:23 | XMS_ITS | Clinical Summary ---
Author Organization [facility] ity Address [address] [place] [address] Care Team Providers Care Workforce Management Consultant Name Role Phone Unavailable Primary Care Provider [...] Depression Screening 05/01/2024 COVID-19 Vaccine ( - 2024-2 6 season) 2024 Influenza Vaccine (#1) 2024 RSV [...]
== END 2025-04-17 08:22 | disposition home or self-care (01) ==
LOC: HO.ENCR 15:26
PROVIDERS: PCP Internal Medicine; Visit Provider Registered Nurse Diabetes Educator
DX: E11.65 Type 2 diabetes mellitus with hyperglycemia (principal)

== ENCOUNTER → 2025-04-16 15:25 | Outpatient (BNVA) | payer OTHER, SELFPAY | PROVIDERS: PCP Internal Medicine; Visit Provider Registered Nurse Diabetes Educator | DX: E11.65 Type 2 diabetes mellitus with hyperglycemia (principal); E11.42 Type 2 diabetes mellitus with diabetic polyneuropathy; E78.5 Hyperlipidemia, unspecified; Z79.4 Long term (current) use of insulin; Z79.84 Long term (current) use of oral hypoglycemic drugs | CPT/HCPCS: 82947; 83036; 99211; 99212 ==

== ENCOUNTER 2025-04-30 15:34 | Outpatient (AMB) | payer OTHER, SELFPAY ==
--- NOTE | 2025-04-30 15:35 | A.OFFVIS_ITS ---
Vital Signs 04/30/25 15:36 Height 5 ft 11 in Weight 286 lb 9.615 oz BMI 40.0 BP 122/78 Blood Pressure Location Rt brachial Position Sitting Pulse 102 H Pulse Source Pulse Oximeter Pulse Oximetry (%) 96 Oxygen Delivery Method Room Air Intake Visit Reasons: f/u Type 2 DM Intake Note: Patient presents today for a follow-up on Type 2 Diabetes Mellitus: Patient was last seen by Dr Kervin Montanez MD. Last Diabetic eye exam was on: Patient stated moe the year, [facility] Last Podiatry exam was on: Patient does not see a Metal Machinist Most recent HbA1c: 6.4%, 04/16/2025 Random Glucose: 134 mg/dL Ferry Operator Required: No Accompanied by: Self / Same As Patient Allergies Iodinated Contrast Media Allergy (Mild, Verified 04/16/25 15:35) Abdominal Pain Penicillins Allergy (Mild, Verified 04/16/25 15:35) Hives dulaglutide (From [facility]) Adverse Reaction (Intermediate, Verified 04/16/25 15:35) sob HPI Comments Details: 49 YO M with diabetes presenting for follow up. Seeing Dr Montanez Initially diagnosed with T2DM in 14 yrs ago . Current medications Metformin 1000 mg B.i.d. and Mounjaro 10 mg q wkly Glipizide 10mg BID-this was stopped per patient at last visit Jardiance 10mg re-started one month . He has one prior episode of yeast infection Marysol download shows he is using the sensor 98% of the time. Avg 122, GMI 6.2%, tgt 98% with 1% high and 1% low. Despite multiple teaching has been unable to consistently change his sensors. He has two days left on it. We discussed having his accompany him for teaching since it does not seem he can retain the teaching termite control representative. Has eyes checked yearly, last eye exam , denies retinopathy. needs to make appt Has neuropathy, l sees podiatry saw 2 wks ago Denies nephropathy, on CHAVO/ARB. Has HLD, Not on statin. Denies CAD. Not Had diabetes education. ROS CONSTITUTIONAL: Denies weight loss, fever and chills. HEENT: Denies changes in vision and hearing. RESPIRATORY: Denies SOB and cough. CV: Denies palpitations and CP GI: Denies abdominal pain, nausea, vomiting and diarrhea. : Denies dysuria and urinary frequency. MSK: Denies new myalgia and joint pain. SKIN: Denies rash and pruritus. NEUROLOGICAL: Denies headache PSYCHIATRIC: Denies recent changes in mood. PHYSICAL EXAM: GENERAL: Alert and oriented x 3. NAD EYES: EOMI. Anicteric. HENT: Moist mucous membranes. No scleral icterus. No cervical lymphadenopathy. LUNGS: Clear to auscultation bilaterally. CARDIOVASCULAR: Regular rate and rhythm. No murmur. No JVD. ABDOMEN: Soft, non-tender +bs EXTREMITIES: No edema. Non-tender. SKIN: No rashes or lesions. Warm. NEUROLOGIC: No focal neurological deficits. CN II-XII grossly intact PSYCHIATRIC: Cooperative. Appropriate mood and affect [facility] Medical History (Updated 03/26/25 @ 15:04 by Jose Cruz Harris MD) Obesity Asthma-COPD overlap syndrome Polycythemia IZABELLA (obstructive sleep apnea) Hypoxia Dyspnea Esophagitis Gastritis Asthma Back pain Chest pain Fall Chest wall pain Shortness of breath on exertion LFTs abnormal TSH elevation Poorly controlled type 2 diabetes mellitus Abscess Cholelithiasis Colon cancer screening Umbilical hernia Hypogonadism in male Hypertension GERD (gastroesophageal reflux disease) Surgical History History of esophagogastroduodenoscopy (EGD) Hx of colonoscopy Laryngeal polyp Hx of LASIK History of appendectomy Family History Father Heart attack Mother No problems noted. Sister No problems noted. Daughter No problems noted. Maternal Grandmother Ovarian cancer Paternal Grandfather Heart attack Paternal Uncle Alcohol abuse Other Mental health disorder Substance use disorder Social History Housing: House Alcohol intake: former Year quit: 2013 Comment: once a month 1 bottle Patient Tobacco Use Status: Former Tobacco user Tobacco use type: Cigarette Years Smoked: +/- 2016 e-Cigarette/Vaping Use: Never Used Second Hand Smoke Exposure: No service: No Current occupational status: employed Cognitive needs: No Hearing needs: No Vision needs: Yes Physical Exam Vital Signs: Last Vital Signs Pulse 102 H 04/30/25 15:36 BP 122/78 04/30/25 15:36 Pulse Ox 96 04/30/25 15:36 Oxygen Delivery Method Room Air 04/30/25 15:36 BMI result Body Mass Index 40.0 Results Reviewed Results Reviewed: Laboratory Last Values Glucose (Clinic) 135 mg/dL (60-115) H 04/30/25 15:41 Assessment & Plan Assessment & Plan (1) Type 2 diabetes mellitus with hyperglycemia: Code(s): E11.65 - Type 2 diabetes mellitus with hyperglycemia Category: Medical Qualifiers: Diabetes mellitus care home insulin use: without termite control representative use Qualified Code(s): E11.65 - Type 2 diabetes mellitus with hyperglycemia Plan Patient doing well off glipizide, back on jardiance Some hypoglycemia-he can decrease metformin He is asked to return with his for sensor/CGM teaching which is scheduled. Coding Level of Care Code Est Pt Level 3 (85704) Diagnoses Type 2 diabetes mellitus with hyperglycemia, without long-term current use of insulin E11.65 Diabetes mellitus termite control representative insulin use: without termite control representative use
[2025-04-30 15:36] VITALS: BP 122/78; PULSE 102; O2SAT 96; BMI 40.0
[2025-04-30 15:45] LABS: Glucose, Whole Blood 135 mg/dL (60-115)
--- OUTSIDE RECORDS SUMMARY | 2025-04-30 16:01 | XMS_ITS | Continuity of Care Document ---
Author Organization [facility] [address] [place] [address] Phone [phone] Social History Type Date Description Comments Sex Male Sex Unknown Medical Devices Description No Information Available Encounters Description No Information Available Assessments Description No Information Available Plan of Treatment No Information Available Functional Status Description No Information Available Mental Status Description No Information Available Referrals Description No Information Available
--- OUTSIDE RECORDS SUMMARY | 2025-04-30 16:01 | XMS_ITS | Clinical Summary ---
Author Organization [facility] ity Address [address] [place] [address] Care Team Providers Care Laundry Helper Name Role Phone Unavailable Primary Care [...]
== END 2025-04-30 15:56 | disposition home or self-care (01) ==
LOC: HO.ENCR 15:35
PROVIDERS: PCP Internal Medicine; Visit Provider Internal Medicine
DX: E11.65 Type 2 diabetes mellitus with hyperglycemia (principal)

== ENCOUNTER → 2025-04-30 15:34 | Outpatient (BNVA) | payer OTHER, SELFPAY | PROVIDERS: PCP Internal Medicine; Visit Provider Internal Medicine | DX: E11.649 Type 2 diabetes mellitus with hypoglycemia without coma (principal); Z79.84 Long term (current) use of oral hypoglycemic drugs | CPT/HCPCS: 82947; 99212 ==